=== PATIENT | female | born 1945 | race African-American/Black ===

== ENCOUNTER → 2016-05-21 | Outpatient (CLI) | payer MEDICARE ==
[2016-05-21 10:13] LABS: ABSOLUTE EOSINOPHILS # (AUTO) 0.1 10^3/uL (0.0-0.6); ABSOLUTE LYMPHOCYTES (AUTO) 1.8 10^3/uL (0.5-4.7); ABSOLUTE MONOCYTES (AUTO) 0.6 10^3/uL (0.1-1.4); ABSOLUTE NEUT (AUTO) 3.4 10^3/uL (1.7-8.2); BASOPHILS % (AUTO) 0.4 % (0-2); EOSINOPHILS % (AUTO) 0.9 % (0-6); HEMATOCRIT 36.5 % (36.0-47.0); HEMOGLOBIN 12.1 g/dL (12.0-15.5); HGB HCT DIFFERENCE -0.2; LYMPHOCYTES % (AUTO) 30.1 % (13-45); MEAN CORPUSCULAR HEMOGLOBIN 26.4 pg (27.0-33.4); MEAN CORPUSCULAR VOLUME 80 fl (80-97); MONOCYTES % (AUTO) 10.5 % (3-13); RED BLOOD COUNT 4.56 10^6/uL (3.72-5.28); RED CELL DISTRIBUTION WIDTH 14.3 % (11.5-14.0); SEGMENTED NEUTROPHILS % (AUTO) 58.1 % (42-78); WHITE BLOOD COUNT 5.9 10^3/uL (4.0-10.5)
[2016-05-21 10:30] LABS: ALANINE AMINOTRANSFERASE 21 U/L (9-52); ALBUMIN 4.3 g/dL (3.5-5.0); ALKALINE PHOSPHATASE 83 U/L (38-126); ANION GAP 13 (5-19); ASPARTATE AMINO TRANSFERASE 14 U/L (14-36); BILIRUBIN,TOTAL 0.7 mg/dL (0.2-1.3); BLOOD UREA NITROGEN 11 mg/dL (7-20); CALCIUM 10.2 mg/dL (8.4-10.2); CARBON DIOXIDE 29 mmol/L (22-30); CHLORIDE 98 mmol/L (98-107); CREATININE RESULT 0.66 mg/dL (0.52-1.25); GLUCOSE 358 mg/dL (75-110); LIPASE 59.1 U/L (23-300); POTASSIUM 4.2 mmol/L (3.6-5.0); SODIUM 140.4 mmol/L (137-145); TOTAL PROTEIN 7.4 g/dL (6.3-8.2)
== END ==
LOC: OD 08:50
PROVIDERS: ATTEND Physician Assistant
DX: R10.9 Unspecified abdominal pain (principal); N20.0 Calculus of kidney
CPT/HCPCS: 36415; 74000; 80053; 83690; 85025

== ENCOUNTER → 2016-06-23 | Outpatient (CLI) | payer MEDICARE, OTHER | LOC: OD 09:23 | PROVIDERS: ATTEND Physician Assistant | DX: M54.40 Lumbago with sciatica, unspecified side (principal) | CPT/HCPCS: 72110 ==

== ENCOUNTER 2016-07-07 18:51 | Emergency (ER) | payer MEDICARE, OTHER ==
--- NOTE | 2016-07-07 19:04 | ER Document Report ---
ED Medical Screen (RME) - General Chief Complaint: Flank Pain Stated Complaint: RIGHT SIDE PAIN Time seen by provider: 19:00 Mode of Arrival: Ambulatory Information source: Patient - Patient states she has had Notes: Patient states she has had right-sided abdominal pain for the last couple of days. States she has had vomiting and diarrhea. Denies fever. I have greeted and performed a rapid initial assessment of this patient. A comprehensive ED assessment and evaluation of the patient, analysis of test results and completion of the medical decision making process will be conducted by additional ED providers. TRAVEL OUTSIDE OF THE [place] IN LAST 30 DAYS: No - Related Data Allergies/Adverse Reactions: Sulfa (Sulfonamide Antibiotics) Allergy (Unknown, Verified 07/07/16 18:56) unsure Past Medical History - Social History Chew tobacco use (# tins/day): No Frequency of alcohol use: None Drug Abuse: None - Past Medical History Cardiac Medical History: Reports: Hx Hypercholesterolemia, Hx Hypertension - on meds Denies: Hx Coronary Artery Disease, Hx Heart Attack Pulmonary Medical History: Denies: Hx Asthma, Hx Bronchitis, Hx COPD, Hx Pneumonia Neurological Medical History: Denies: Hx Cerebrovascular Accident, Hx Seizures Endocrine Medical History: Reports: Hx Diabetes Mellitus Type 2 Renal/ Medical History: Denies: Hx Peritoneal Dialysis GI Medical History: Denies: Hx Hepatitis, Hx Hiatal Hernia, Hx Ulcer Musculoskeltal Medical History: Reports Hx Arthritis Infectious Medical History: Denies: Hx Hepatitis Past Surgical History: Reports: Hx Section. Denies: Hx Hysterectomy, Hx Mastectomy, Hx Open Heart Surgery, Hx Pacemaker - Immunizations Hx Diphtheria, Pertussis, Tetanus Vaccination: Yes Physical Exam - Abdominal Inspection: Normal Bowel sounds: Hyperactive Tenderness: Tender - diffuse tenderness, more to RUQ.
[2016-07-07 19:43] LABS: APPEARANCE,URINE CLOUDY; BILIRUBIN,URINE NEGATIVE (NEGATIVE); GLUCOSE, URINE >=500 mg/dL (NEGATIVE); KETONES,URINE TRACE mg/dL (NEGATIVE); LEUKOCYTE ESTERASE,URINE LARGE (NEGATIVE); NITRITE,URINE NEGATIVE (NEGATIVE); PROTEIN,URINE 100 mg/dL (NEGATIVE); URINE SPECIFIC GRAVITY 1.013; UROBILINOGEN,URINE NEGATIVE mg/dL (<2.0)
[2016-07-07] MEDS ORDERED: KETOROLAC TROMETHAMINE INJ/PF 30 MG/1 ML SDV IV ONE (21:57)
[2016-07-07] MEDS ORDERED: NORMAL SALINE 1000 ML 1,000 ML IV PRN (21:57)
[2016-07-07] MEDS ORDERED: ONDANSETRON HCL INJ/PF 4 MG/2 ML SDV IV ONE (21:57)
--- NOTE | 2016-07-07 21:59 | ER Document Report ---
ED GI/ - General Chief Complaint: Flank Pain Stated Complaint: RIGHT SIDE PAIN Time seen by provider: 21:58 Mode of Arrival: Ambulatory Information source: Patient TRAVEL OUTSIDE OF THE [place] IN LAST 30 DAYS: No - HPI Patient complains to provider of: Abdominal pain Onset: Yesterday Timing/Duration: Constant Quality of pain: Achy Severity at maximum: Moderate Severity in ED: Moderate Associated symptoms: Diarrhea, Dysuria, Hematuria, Loss of appetite, Nausea, Vomiting Exacerbated by: Denies Relieved by: Denies Recently seen / treated by doctor: Yes Notes: 07/07/16 21:58 Patient is a 70-year-old female presenting to the emergency room for right flank pain that's been going on for the past 2-3 days, in fact she saw her primary care provider just a few days ago for these symptoms, states she had a urinalysis completed which showed hematuria but the office never called back with additional results, she had some vomiting and diarrhea yesterday, and decreased appetite throughout the day today, she denies a fever, no dysuria, no cough, cold or congestion - Related Data Allergies/Adverse Reactions: Sulfa (Sulfonamide Antibiotics) Allergy (Unknown, Verified 07/07/16 18:56) unsure Past Medical History - General Information source: Patient - Patient states she has had - Social History Smoking Status: Unknown if Ever Smoked Chew tobacco use (# tins/day): No Frequency of alcohol use: None Drug Abuse: None Family History: Reviewed & Not Pertinent Patient has suicidal ideation: No Patient has homicidal ideation: No - Past Medical History Cardiac Medical History: Reports: Hx Hypercholesterolemia, Hx Hypertension - on meds Denies: Hx Coronary Artery Disease, Hx Heart Attack Pulmonary Medical History: Denies: Hx Asthma, Hx Bronchitis, Hx COPD, Hx Pneumonia Neurological Medical History: Denies: Hx Cerebrovascular Accident, Hx Seizures Endocrine Medical History: Reports: Hx Diabetes Mellitus Type 2 Renal/ Medical History: Denies: Hx Peritoneal Dialysis GI Medical History: Denies: Hx Hepatitis, Hx Hiatal Hernia, Hx Ulcer Musculoskeltal Medical History: Reports Hx Arthritis Infectious Medical History: Denies: Hx Hepatitis Past Surgical History: Reports: Hx Section. Denies: Hx Hysterectomy, Hx Mastectomy, Hx Open Heart Surgery, Hx Pacemaker - Immunizations Hx Diphtheria, Pertussis, Tetanus Vaccination: Yes Hx Pneumococcal Vaccination: 03/10/14 Review of Systems - Review of Systems Constitutional: No symptoms reported EENT: No symptoms reported Cardiovascular: No symptoms reported Respiratory: No symptoms reported Gastrointestinal: See HPI Genitourinary: See HPI Female Genitourinary: No symptoms reported Musculoskeletal: No symptoms reported Skin: No symptoms reported Hematologic/Lymphatic: No symptoms reported Neurological/Psychological: No symptoms reported -: Yes All other systems reviewed and negative Physical Exam - Vital signs Vitals: Temp Pulse Resp BP Pulse Ox 98.3 F 80 17 125/75 98 07/08/16 01:10 07/08/16 01:10 07/08/16 01:10 07/08/16 01:10 07/08/16 01:10 Interpretation: Normal - General General appearance: Appears well, Alert - HEENT Head: Normocephalic, Atraumatic Eyes: Normal Pupils: PERRL - Respiratory Respiratory status: No respiratory distress Chest status: Nontender Breath sounds: Normal Chest palpation: Normal - Cardiovascular Rhythm: Regular Heart sounds: Normal auscultation Murmur: No - Abdominal Inspection: Normal Distension: No distension Bowel sounds: Normal Tenderness: Tender - Right flank tenderness Organomegaly: No organomegaly - Back Back: Normal, Nontender - Extremities General upper extremity: Normal inspection, Nontender, Normal color, Normal ROM , Normal temperature General lower extremity: Normal inspection, Nontender, Normal color, Normal ROM , Normal temperature, Normal weight bearing. No: Wally's sign - Neurological Neuro grossly intact: Yes Cognition: Normal Orientation: AAOx4 [place] Coma Scale Eye Opening: Spontaneous Page Coma Scale Verbal: Oriented Page Coma Scale Motor: Obeys Commands Page Coma Scale Total: 15 Speech: Normal Motor strength normal: LUE, RUE, LLE, RLE Sensory: Normal - Psychological Associated symptoms: Normal affect, Normal mood - Skin Skin Temperature: Warm Skin Moisture: Dry Skin Color: Normal Course - Re-evaluation Re-evalutation: 07/08/16 03:07 Patient symptoms consistent with urinary tract infection, urinalysis confirms she was started on antibiotics and advised to follow-up with her primary care provider or return if symptoms worsen, patient acknowledges understanding and agreement with this plan - Vital Signs Vital signs: Temp Pulse Resp BP Pulse Ox 98.3 F 80 17 125/75 98 07/08/16 01:10 07/08/16 01:10 07/08/16 01:10 07/08/16 01:10 07/08/16 01:10 - Laboratory Result Diagrams: 07/07/16 23:55 07/07/16 23:55 Laboratory results interpreted by me: 07/07/16 07/07/16 07/07/16 19:06 23:55 23:55 RBC 5.57 H MCV 79 L MCH 26.4 L RDW 14.1 H Lymphocytes % 46.3 H Chloride 97 L BUN 21 H Glucose 258 H Calcium 11.4 H Total Protein 9.1 H Urine Protein 100 H Urine Glucose (UA) >=500 H Urine Ketones TRACE H Urine Blood SMALL H Ur Leukocyte Esterase LARGE H Discharge - Discharge Clinical Impression: Urinary tract infection Qualifiers: Indwelling urinary catheter type: unspecified Encounter type: initial encounter Condition: Stable Disposition: HOME, SELF-CARE Instructions: Urinary Tract Infection ([facility]) Additional Instructions: Follow up with your primary care provider in one to 2 days. Return to the emergency room immediately if symptoms worsen or any additional concerns. Prescriptions: Ciprofloxacin HCl [Cipro 500 mg Tablet] 500 mg PO BID #20 tablet Referrals: ANA TINOCO PA [Primary Care Provider] - Follow up as needed
[2016-07-08 00:07] LABS: ABSOLUTE BASOPHILS # (AUTO) 0.1 10^3/uL (0.0-0.2); ABSOLUTE EOSINOPHILS # (AUTO) 0.1 10^3/uL (0.0-0.6); ABSOLUTE LYMPHOCYTES (AUTO) 3.8 10^3/uL (0.5-4.7); ABSOLUTE MONOCYTES (AUTO) 0.6 10^3/uL (0.1-1.4); ABSOLUTE NEUT (AUTO) 3.6 10^3/uL (1.7-8.2); BASOPHILS % (AUTO) 0.7 % (0-2); EOSINOPHILS % (AUTO) 0.9 % (0-6); HEMOGLOBIN 14.7 g/dL (12.0-15.5); HGB HCT DIFFERENCE 0.1; LYMPHOCYTES % (AUTO) 46.3 % (13-45); MEAN CORPUSCULAR HEMOGLOBIN 26.4 pg (27.0-33.4); MEAN CORPUSCULAR HGB CONC 33.5 g/dL (32.0-36.0); MEAN CORPUSCULAR VOLUME 79 fl (80-97); MONOCYTES % (AUTO) 7.9 % (3-13); RED BLOOD COUNT 5.57 10^6/uL (3.72-5.28); RED CELL DISTRIBUTION WIDTH 14.1 % (11.5-14.0); SEGMENTED NEUTROPHILS % (AUTO) 44.2 % (42-78); WHITE BLOOD COUNT 8.1 10^3/uL (4.0-10.5)
[2016-07-08 00:19] LABS: ALANINE AMINOTRANSFERASE 21 U/L (9-52); ALKALINE PHOSPHATASE 78 U/L (38-126); ASPARTATE AMINO TRANSFERASE 17 U/L (14-36); BILIRUBIN,TOTAL 0.9 mg/dL (0.2-1.3); BLOOD UREA NITROGEN 21 mg/dL (7-20); CALCIUM 11.4 mg/dL (8.4-10.2); CHLORIDE 97 mmol/L (98-107); CREATININE RESULT 0.83 mg/dL (0.52-1.25); GLUCOSE 258 mg/dL (75-110); LIPASE 84.4 U/L (23-300); POTASSIUM 3.9 mmol/L (3.6-5.0); SODIUM 140.7 mmol/L (137-145)
[2016-07-08 00:20] LABS: ANION GAP 17 (5-19); CARBON DIOXIDE 27 mmol/L (22-30); TOTAL PROTEIN 9.1 g/dL (6.3-8.2)
[2016-07-08] MEDS ORDERED: CIPROFLOXACIN HCL 500 MG TABLET PO ONE (00:40)
[2016-07-08 01:58] VITALS: BP 125/75
== END 2016-07-08 01:15 | disposition home or self-care (01) ==
LOC: ER 18:51
DX: N39.0 Urinary tract infection, site not specified (principal); R10.9 Unspecified abdominal pain; R63.0 Anorexia; R11.2 Nausea with vomiting, unspecified; R19.7 Diarrhea, unspecified; I10 Essential (primary) hypertension; E11.9 Type 2 diabetes mellitus without complications; Z88.2 Allergy status to sulfonamides
CPT/HCPCS: 99284; 96361; 96374; 96375; 36415; 83690; 85025; 80053; 81001; A9270; J1885; J2405; J7030

== ENCOUNTER → 2016-07-07 | Outpatient (CLI) | payer MEDICARE, OTHER ==
[2016-07-07 14:33] LABS: ALANINE AMINOTRANSFERASE 21 U/L (9-52); ALBUMIN 4.5 g/dL (3.5-5.0); ALKALINE PHOSPHATASE 80 U/L (38-126); ANION GAP 18 (5-19); ASPARTATE AMINO TRANSFERASE 17 U/L (14-36); BILIRUBIN,TOTAL 0.9 mg/dL (0.2-1.3); BLOOD UREA NITROGEN 16 mg/dL (7-20); CALCIUM 10.8 mg/dL (8.4-10.2); CARBON DIOXIDE 24 mmol/L (22-30); CHLORIDE 97 mmol/L (98-107); CREATININE RESULT 0.71 mg/dL (0.52-1.25); GLUCOSE 278 mg/dL (75-110); LIPASE 65.3 U/L (23-300); SODIUM 138.8 mmol/L (137-145); TOTAL PROTEIN 8.2 g/dL (6.3-8.2)
[2016-07-07 14:38] LABS: ABSOLUTE LYMPHOCYTES (AUTO) 2.4 10^3/uL (0.5-4.7); ABSOLUTE MONOCYTES (AUTO) 0.6 10^3/uL (0.1-1.4); ABSOLUTE NEUT (AUTO) 4.2 10^3/uL (1.7-8.2); BASOPHILS % (AUTO) 0.4 % (0-2); EOSINOPHILS % (AUTO) 0.6 % (0-6); HEMATOCRIT 40.2 % (36.0-47.0); HEMOGLOBIN 13.2 g/dL (12.0-15.5); HGB HCT DIFFERENCE -0.6; LYMPHOCYTES % (AUTO) 33.3 % (13-45); MEAN CORPUSCULAR HEMOGLOBIN 26.1 pg (27.0-33.4); MEAN CORPUSCULAR HGB CONC 32.9 g/dL (32.0-36.0); MEAN CORPUSCULAR VOLUME 79 fl (80-97); MONOCYTES % (AUTO) 8.9 % (3-13); RED BLOOD COUNT 5.06 10^6/uL (3.72-5.28); RED CELL DISTRIBUTION WIDTH 14.2 % (11.5-14.0); SEGMENTED NEUTROPHILS % (AUTO) 56.8 % (42-78); WHITE BLOOD COUNT 7.3 10^3/uL (4.0-10.5)
== END ==
LOC: OD 12:56
PROVIDERS: ATTEND Physician Assistant
DX: R10.11 Right upper quadrant pain (principal)
CPT/HCPCS: 36415; 80053; 83690; 85025

== ENCOUNTER → 2016-07-15 | Outpatient (CLI) | payer MEDICARE, OTHER | LOC: RAD 09:19 | PROVIDERS: ATTEND Family Medicine | DX: R10.9 Unspecified abdominal pain (principal) | CPT/HCPCS: 74176 ==

== ENCOUNTER → 2017-01-13 | Outpatient (CLI) | payer MEDICARE ==
--- NOTE | 2017-01-13 13:46 | RADIOLOGY REPORT (SQ) ---
EXAM DESCRIPTION: HIP LEFT AP/LATERAL COMPLETED DATE/TIME: 01/13/2017 11:23 am REASON FOR STUDY: PAIN IN LEFT HIP M25.552 PAIN IN LEFT HIP COMPARISON: 07/19/2012 NUMBER OF VIEWS: Two views. TECHNIQUE: AP pelvis and additional frog-leg view of the left hip. LIMITATIONS: None. FINDINGS: MINERALIZATION: Normal. LEFT HIP: No fracture or dislocation. No worrisome bone lesions. No contour deformity. No joint spa ce narrowing. RIGHT HIP: No fracture or dislocation. No worrisome bone lesions. PUBIS AND ISCHIUM: No fracture. PELVIS: No fracture. SACRUM: No fracture or dislocation. No worrisome bone lesions. LOWER LUMBAR SPINE: Disc degeneration and facet arthropathy lower lumbar spine. SOFT TISSUES: No findings. OTHER: No other significant finding. IMPRESSION: No significant hip pathology. Degenerative change and no change since 07/19/2012 facet a rthropathy lower lumbar spine. TECHNICAL DOCUMENTATION: JOB ID: [id number] [employer]- All Rights Reserved
== END ==
LOC: OD 11:01
PROVIDERS: ATTEND Physician Assistant
DX: M25.552 Pain in left hip (principal)

== ENCOUNTER → 2017-02-17 | Outpatient (CLI) | payer MEDICARE ==
--- NOTE | 2017-02-17 16:17 | RADIOLOGY REPORT (SQ) ---
EXAM DESCRIPTION: CT HEAD WITHOUT COMPLETED DATE/TIME: 02/17/2017 3:50 pm REASON FOR STUDY: FACIAL WEAKNESS R29.810 FACIAL WEAKNESS COMPARISON: 2012. TECHNIQUE: Axial images acquired through the brain without intravenous contrast. Images reviewed wi th bone, brain and subdural windows. Images stored on PACS. All CT scanners at this facility use dose modulation, iterative reconstruction, and/or weight based d osing when appropriate to reduce radiation dose to as low as reasonably achievable (ALARA). [facility]: Dose Right [facility]: CareDose [facility]: Dose Right [facility]: Teradose 4D [facility]: [employer] RADIATION DOSE: Up-to-date CT equipment and radiation dose reduction techniques were employed. CTDIv ol: 49.0 mGy. DLP: 783 mGy-cm.mGy. LIMITATIONS: None. FINDINGS: VENTRICLES: Mildly prominent. CEREBRUM: No masses. No hemorrhage. No midline shift. Areas of low density in the white matter mos t likely due to chronic micro-vascular ischemic change. This includes lacunar infarcts in the right basal ganglia and along the left frontal lobe anterior carpus callosum. These changes are progressiv e compared to 2013. No evidence for acute infarction. CEREBELLUM: No masses. No hemorrhage. No alteration of density. No evidence for acute infarction. EXTRAAXIAL SPACES: No fluid collections. No masses. ORBITS AND GLOBE: No intra- or extraconal masses. Normal contour of globe without masses. CALVARIUM: No fracture. PARANASAL SINUSES: No fluid or mucosal thickening. SOFT TISSUES: No mass or hematoma. OTHER: No other significant finding. IMPRESSION: 1. Atrophy and small vessel disease. Progressive since 2013. No acute abnormality sug gested. If there is clinical concern for recent CVA, MRI may be warranted. EVIDENCE OF ACUTE STROKE: NO. TECHNICAL DOCUMENTATION: JOB ID: [id number] Quality ID # [id number]: Final reports with documentation of one or more dose reduction techniques (e.g., Au tomated exposure control, adjustment of the mA and/or kV according to patient size, use of iterative reconstruction technique) 2010 [employer]- All Rights Reserved
== END ==
LOC: RAD 15:34
PROVIDERS: ATTEND Physician Assistant
DX: R29.810 Facial weakness (principal)
CPT/HCPCS: 70450

== ENCOUNTER → 2017-02-22 | Outpatient (CLI) | payer MEDICARE ==
--- NOTE | 2017-02-22 16:38 | RADIOLOGY REPORT (SQ) ---
EXAM DESCRIPTION: CAROTID DOPPLER COMPLETED DATE/TIME: 02/22/2017 4:25 pm REASON FOR STUDY: FACIAL WEAKNESS R29.810 FACIAL WEAKNESS COMPARISON: None. TECHNIQUE: Grayscale ultrasound, Doppler velocity and spectra, and color Doppler images acquired of the extra-cranial carotid and vertebral arteries. Images stored on PACS. LIMITATIONS: None. FINDINGS: RIGHT CAROTID CCA Velocities: Within normal limits. ICA Velocities Peak systolic 0.66 m/s. End diastolic 0.22 m/s. Proximal ICA/CCA peak systolic ratio 1.6. Spectra normal. No significant plaque. LEFT CAROTID CCA Velocities: Within normal limits. ICA Velocities Peak systolic 0.61 m/s. End diastolic 0.23 m/s. Proximal ICA/CCA peak systolic ratio 1.3. Spectra normal. No significant plaque. VERTEBRAL ARTERIES: Antegrade flow. Normal waveforms. SUBCLAVIAN ARTERIES: No finding. OTHER: No other significant finding. IMPRESSION: NO HEMODYNAMICALLY SIGNIFICANT STENOSIS. COMMENT: Quality ID #195: Velocity criteria are extrapolated from the diameter data as defined by t he Society of Radiologists in Ultrasound Consensus Conference. Radiology 2003: 229; 340-346. TECHNICAL DOCUMENTATION: JOB ID: [id number] [employer]- All Rights Reserved
== END ==
LOC: SP 14:25
PROVIDERS: ATTEND Physician Assistant
DX: R29.810 Facial weakness (principal)
CPT/HCPCS: 93880

== ENCOUNTER → 2017-03-01 | Outpatient (CLI) | payer MEDICARE ==
--- NOTE | 2017-03-02 08:14 | RADIOLOGY REPORT (SQ) ---
EXAM DESCRIPTION: MRI HEAD WITHOUT COMPLETED DATE/TIME: 03/01/2017 5:46 pm REASON FOR STUDY: FACIAL WEAKNESS R29.810 FACIAL WEAKNESS COMPARISON: None. TECHNIQUE: Multiplanar imaging includes non-contrasted T1, T2, FLAIR, and diffusion with ADC map seq uences. Images stored on PACS. LIMITATIONS: None. FINDINGS: ANATOMY: No anomalies. Normal vascular flow voids. Pituitary fossa normal. CSF SPACES: Normal in size and contour. No hemorrhage. CEREBRUM: 1.1 cm ovoid subacute ischemia pattern of the mid, right internal capsule with restricted d iffusion. Mild atrophy and moderate white matter microangiopathy. Chronic encephalomalacia/ischemia of the anterior limb of the right external capsule anteriorly. POSTERIOR FOSSA: No signal alteration. No hemorrhage. No edema, masses or mass effect. Internal mary tory canals, cerebello-pontine angles, mastoids normal. DIFFUSION IMAGING: Negative for acute or sub-acute infarction. ORBITS: No masses. Globes normal. PARANASAL SINUSES: No fluid levels. Mucosa normal. OTHER: Trapped fluid of the right petrous apex, nonspecific. IMPRESSION: 1.1 cm ovoid focus subacute ischemia of the right internal capsule. EVIDENCE OF SUBACUTE STROKE: YES. COMMENT: This report was called to ANA EDDY at08:08 on 03/02/2017. TECHNICAL DOCUMENTATION: JOB ID: [id number]- All Rights Reserved
== END ==
LOC: RAD 16:55
PROVIDERS: ATTEND Physician Assistant
DX: I63.9 Cerebral infarction, unspecified (principal); R29.810 Facial weakness
CPT/HCPCS: 70551

== ENCOUNTER 2017-07-25 11:52 | Emergency (ER) | payer MEDICARE ==
--- NOTE | 2017-07-25 12:31 | ER Document Report ---
ED Medical Screen (RME) - General Chief Complaint: Flank Pain Stated Complaint: SIDE PAIN Time Seen by Provider: 07/25/17 12:05 Mode of Arrival: Ambulatory Information source: Patient Notes: 71 y.o female with a PMHx of kidney stones presents to the ED with RT flank pain of onset this morning. She denies any dysuria. She has no other complaints at this time. I have greeted and performed a rapid initial assessment of the patient. A comprehensive ED assessment and evaluation of the patient, analysis of test results, and completion of the medical decision making process will be conducted by additional ED providers. TRAVEL OUTSIDE OF THE [place] IN LAST 30 DAYS: No - Related Data Allergies/Adverse Reactions: Sulfa (Sulfonamide Antibiotics) Allergy (Unknown, Verified 07/25/17 11:57) unsure Past Medical History - General Information source: Patient - Social History Chew tobacco use (# tins/day): No Frequency of alcohol use: None Drug Abuse: None - Past Medical History Cardiac Medical History: Reports: Hx Hypercholesterolemia, Hx Hypertension - on meds Endocrine Medical History: Reports: Hx Diabetes Mellitus Type 2 Renal/ Medical History: Reports: Hx Kidney Stones. Denies: Hx Peritoneal Dialysis Musculoskeltal Medical History: Reports Hx Arthritis Past Surgical History: Reports: Hx Section - x 2 - Immunizations Hx Diphtheria, Pertussis, Tetanus Vaccination: Yes Review of Systems - Review of Systems Constitutional: No symptoms reported EENT: No symptoms reported Cardiovascular: No symptoms reported Respiratory: No symptoms reported Gastrointestinal: No symptoms reported Genitourinary: See HPI, Flank pain - rt. denies: Dysuria Female Genitourinary: See HPI Musculoskeletal: No symptoms reported Skin: No symptoms reported Hematologic/Lymphatic: No symptoms reported Neurological/Psychological: No symptoms reported -: Yes All other systems reviewed and negative Physical Exam - Vital signs Vitals: Temp Pulse Resp BP Pulse Ox 98.3 F 76 16 185/98 H 97 07/25/17 12:02 07/25/17 12:02 07/25/17 12:02 07/25/17 12:02 07/25/17 12:02 - Notes Notes: Physical Exam: General: Alert, appears well. HEENT: Normocephalic. Atraumatic. PERRLA. Extraocular movements intact. Oropharynx clear. Neck: Supple. Respiratory: No respiratory distress. Abdominal: Normal Inspection. No distension. Extremities: Moves all four extremities. Neurological: Normal cognition. AAOx4. Normal speech. Psychological: Normal affect. Normal Mood. Skin: Warm. Dry. Normal color. Course - Vital Signs Vital signs: Temp Pulse Resp BP Pulse Ox 98.3 F 76 16 185/98 H 97 07/25/17 12:02 07/25/17 12:02 07/25/17 12:02 07/25/17 12:02 07/25/17 12:02 Doctor's Discharge - Discharge Referrals: SHAWNA VELASQUEZ MD [Primary Care Provider] - Follow up as needed Scribe Documentation - Scribe Written by Scribe:: Huey Redd 07/25/17 1230 acting as scribe for :: Tj
[2017-07-25 13:14] LABS: ABSOLUTE EOSINOPHILS # (AUTO) 0.1 10^3/uL (0.0-0.6); ABSOLUTE LYMPHOCYTES (AUTO) 2.4 10^3/uL (0.5-4.7); ABSOLUTE MONOCYTES (AUTO) 0.6 10^3/uL (0.1-1.4); ABSOLUTE NEUT (AUTO) 3.3 10^3/uL (1.7-8.2); BASOPHILS % (AUTO) 0.7 % (0-2); EOSINOPHILS % (AUTO) 1.4 % (0-6); HEMATOCRIT 37.3 % (36.0-47.0); HEMOGLOBIN 12.3 g/dL (12.0-15.5); LYMPHOCYTES % (AUTO) 37.9 % (13-45); MEAN CORPUSCULAR HEMOGLOBIN 26.4 pg (27.0-33.4); MEAN CORPUSCULAR HGB CONC 32.9 g/dL (32.0-36.0); MEAN CORPUSCULAR VOLUME 80 fl (80-97); PLATELET COUNT 284 10^3/uL (150-450); RED BLOOD COUNT 4.65 10^6/uL (3.72-5.28); RED CELL DISTRIBUTION WIDTH 14.1 % (11.5-14.0); TOTAL CELLS COUNTED % (AUTO) 100 %; WHITE BLOOD COUNT 6.5 10^3/uL (4.0-10.5)
[2017-07-25 13:15] LABS: APPEARANCE,URINE CLEAR; BILIRUBIN,URINE NEGATIVE (NEGATIVE); COLOR,URINE YELLOW; GLUCOSE, URINE >=500 mg/dL (NEGATIVE); KETONES,URINE NEGATIVE (NEGATIVE); LEUKOCYTE ESTERASE,URINE NEGATIVE (NEGATIVE); NITRITE,URINE NEGATIVE (NEGATIVE); PROTEIN,URINE 30 mg/dL (NEGATIVE); URINE SPECIFIC GRAVITY 1.017; UROBILINOGEN,URINE NEGATIVE mg/dL (<2.0)
[2017-07-25 13:30] LABS: BLOOD UREA NITROGEN 13 mg/dL (7-20); CALCIUM 9.8 mg/dL (8.4-10.2); GLUCOSE 216 mg/dL (75-110)
[2017-07-25 13:31] LABS: ALANINE AMINOTRANSFERASE 20 U/L (9-52); ALBUMIN 4.4 g/dL (3.5-5.0); ALKALINE PHOSPHATASE 59 U/L (38-126); ANION GAP 13 (5-19); ASPARTATE AMINO TRANSFERASE 19 U/L (14-36); BILIRUBIN,DIRECT 0.5 mg/dL (0.0-0.4); BILIRUBIN,TOTAL 0.5 mg/dL (0.2-1.3); CARBON DIOXIDE 26 mmol/L (22-30); CHLORIDE 104 mmol/L (98-107); LIPASE 77.5 U/L (23-300); POTASSIUM 4.4 mmol/L (3.6-5.0); SODIUM 142.6 mmol/L (137-145); TOTAL PROTEIN 7.8 g/dL (6.3-8.2)
--- NOTE | 2017-07-25 14:24 | RADIOLOGY REPORT (SQ) ---
EXAM DESCRIPTION: CT ABD/PELVIS WITH IV ONLY COMPLETED DATE/TIME: 07/25/2017 1:58 pm REASON FOR STUDY: R Flank pain COMPARISON: CT abdomen and pelvis 07/15/2016 TECHNIQUE: CT scan of the abdomen and pelvis performed using helical scanning technique with dynamic intravenous contrast injection. No oral contrast. Images reviewed with lung, soft tissue, and bone windows. Reconstructed coronal and sagittal MPR images reviewed. Delayed images for evaluation of the urinary system also acquired. All images stored on PACS. All CT scanners at this facility use dose modulation, iterative reconstruction, and/or weight based d osing when appropriate to reduce radiation dose to as low as reasonably achievable (ALARA). [facility]: Dose Right [facility]: CareDose [facility]: Dose Right [facility]: Teradose 4D [facility]: [employer] CONTRAST TYPE AND DOSE: contrast/concentration: Isovue 370.00 mg/ml; Total Contrast Delivered: 98.0 ml; Total Saline Delivered: 72.0 ml RENAL FUNCTION: Creatinine 0.65 RADIATION DOSE: CT Rad equipment meets quality standard of care and radiation dose reduction techniq ues were employed. CTDIvol: 16.3 - 19.7 mGy. DLP: 1890 mGy-cm.. LIMITATIONS: None. FINDINGS: LOWER CHEST: No consolidation or pleural effusion. LIVER: Normal size. No masses. No dilated ducts. SPLEEN: Normal size. No focal lesions. PANCREAS: No significant calcifications. No adjacent inflammation or peripancreatic fluid collections . Pancreatic duct not dilated. GALLBLADDER: No identified stones by CT criteria. No inflammatory changes to suggest cholecystitis. ADRENAL GLANDS: No significant masses or asymmetry. RIGHT KIDNEY AND URETER: No solid masses. There is a 1.4 cm (828 Hounsfield units) calculus at the i nferior pole of the left kidney. No hydronephrosis or hydroureter. LEFT KIDNEY AND URETER: No solid masses. No hydronephrosis or hydroureter. AORTA AND VESSELS: No abdominal aortic aneurysm. RETROPERITONEUM: No retroperitoneal adenopathy, hemorrhage or masses. BOWEL AND PERITONEAL CAVITY: No lead bowel loops or inflammatory changes. No free fluid or free air. APPENDIX: Normal. PELVIS: No mass. No free fluid. The urinary bladder is partially distended. The uterus is present ABDOMINAL WALL: There is a small fat containing umbilical hernia. BONES: Degenerative disc disease with vacuum disc phenomenon at L4-L5. IMPRESSION: 1. No acute findings. 2. Nonobstructing left nephrolithiasis. TECHNICAL DOCUMENTATION: JOB ID: [id number] [facility] Quality ID # 436: Final reports with documentation of one or more dose reduction techniques (e.g., Au tomated exposure control, adjustment of the mA and/or kV according to patient size, use of iterative reconstruction technique) 2010 [email or web address]- All Rights Reserved Reading location - IP/workstation name: [email or web address]
--- NOTE | 2017-07-25 14:31 | ER Document Report ---
ED General - General Chief Complaint: Flank Pain Stated Complaint: SIDE PAIN Time Seen by Provider: 07/25/17 12:05 Mode of Arrival: Ambulatory Information source: Patient Notes: 71-year-old female with a history of hypertension, diabetes, previous CVA, previous kidney stones presents with complaint of right flank pain that started this morning. Patient states pain has been intermittent, throbbing. She denies any associated nausea, vomiting, abdominal pain, dysuria, hematuria, chest pain or shortness of breath. Patient has had prior similar symptoms with kidney stones that required surgical intervention. Patient has had renal stent placements and lithotripsy in the past. Last occurrence was 1 year prior to arrival. She denies any injury. TRAVEL OUTSIDE OF THE [place] IN LAST 30 DAYS: No - HPI Onset: This morning Onset/Duration: Gradual Quality of pain: Achy, Sharp, Throbbing Severity: Mild Pain Level: 2 Associated symptoms: denies: Chest pain, Diarrhea, Fever, Nausea, Vomiting, Shortness of breath Exacerbated by: Movement Relieved by: Denies Similar symptoms previously: Yes - 2016 Recently seen / treated by doctor: No - Related Data Allergies/Adverse Reactions: Sulfa (Sulfonamide Antibiotics) Allergy (Unknown, Verified 07/25/17 11:57) unsure Past Medical History - General Information source: Patient - Social History Smoking Status: Unknown if Ever Smoked Chew tobacco use (# tins/day): No Frequency of alcohol use: None Drug Abuse: None Family History: Reviewed & Not Pertinent Patient has suicidal ideation: No Patient has homicidal ideation: No - Past Medical History Cardiac Medical History: Reports: Hx Hypercholesterolemia, Hx Hypertension - on meds Endocrine Medical History: Reports: Hx Diabetes Mellitus Type 2 Renal/ Medical History: Reports: Hx Kidney Stones. Denies: Hx Peritoneal Dialysis Musculoskeltal Medical History: Reports Hx Arthritis Past Surgical History: Reports: Hx Section - x 2 - Immunizations Hx Diphtheria, Pertussis, Tetanus Vaccination: Yes Hx Pneumococcal Vaccination: 03/10/14 Review of Systems - Review of Systems Constitutional: See HPI. denies: Chills, Fever EENT: No symptoms reported Cardiovascular: denies: Chest pain, Palpitations, Syncope, Dizziness, Lightheaded Respiratory: denies: Short of breath Gastrointestinal: denies: Abdominal pain, Diarrhea, Nausea Genitourinary: Flank pain. denies: Dysuria, Hematuria Female Genitourinary: denies: Vaginal discharge, Vaginal bleeding Musculoskeletal: denies: Back pain Skin: No symptoms reported Physical Exam - Vital signs Vitals: Temp Pulse Resp BP Pulse Ox 98.3 F 76 16 185/98 H 97 07/25/17 12:02 07/25/17 12:02 07/25/17 12:02 07/25/17 12:02 07/25/17 12:02 - Abdominal Inspection: Normal Distension: No distension. No: Distended bladder Bowel sounds: Normal Tenderness: Tender - Right flank Organomegaly: No organomegaly - No pulsitile mass, Other - Back Back: Normal, Nontender, CVA tenderness - Right sided CVA tenderness - Extremities General upper extremity: Normal inspection, Nontender, Normal color, Normal ROM , Normal temperature General lower extremity: Normal inspection, Nontender, Normal color, Normal ROM , Normal temperature, Normal weight bearing. No: Wally's sign - Neurological Neuro grossly intact: Yes Cognition: Normal Orientation: AAOx4 Merritt Coma Scale Eye Opening: Spontaneous Merritt Coma Scale Verbal: Oriented Merritt Coma Scale Motor: Obeys Commands Page Coma Scale Total: 15 Speech: Normal Cranial nerves: Normal Motor strength normal: LUE, RUE, LLE, RLE Sensory: Normal Course - Re-evaluation Re-evalutation: 07/25/17 20:25 71-year-old female with history of hypertension, diabetes and prior kidney stones presents with complaint of right flank pain that started this morning upon awakening. Patient describes the pain as intermittent, aching and not relieved with Tylenol. Upon arrival vitals were reviewed. Patient does not appear toxic or dehydrated. She is in no acute distress. Exam is significant for tenderness along the right flank and right CVA tenderness. She has no right lower quadrant pain or tenderness. She does not display guarding or rebound. There is no pulsatile mass. Patient was administered morphine, and Zofran. CAT scan of the abdomen with IV contrast was obtained and significant for a left kidney stone that is not causing obstruction. Aorta is within normal limits. There is no evidence of urinary tract infection or renal insufficiency. CBC does not show a leukocytosis or anemia. On reevaluation patient states her pain has subsided. CT results were reviewed with the patient and her family. Prior to discharge home patient complaining of mild right arm itching. There is no urticaria. Just evidence of self excoriations. She was given Benadryl for this. I do not believe this was an allergic reaction to IV contrast. Patient was discharged home in stable condition with recommendation to follow-up with her primary care physician. She was instructed to drink plenty of fluids and to withhold her metformin for 48 hours. Laboratory 07/25/17 07/25/17 07/25/17 12:38 12:38 12:38 WBC 6.5 RBC 4.65 Hgb 12.3 Hct 37.3 MCV 80 MCH 26.4 L MCHC 32.9 RDW 14.1 H Plt Count 284 Seg Neutrophils % 51.0 Lymphocytes % 37.9 Monocytes % 9.0 Eosinophils % 1.4 Basophils % 0.7 Absolute Neutrophils 3.3 Absolute Lymphocytes 2.4 Absolute Monocytes 0.6 Absolute Eosinophils 0.1 Absolute Basophils 0.0 Sodium 142.6 Potassium 4.4 Chloride 104 Carbon Dioxide 26 Anion Gap 13 BUN 13 Creatinine 0.65 Est GFR ( Amer) > 60 Est GFR (Non-Af Amer) > 60 Glucose 216 H Calcium 9.8 Total Bilirubin 0.5 Direct Bilirubin 0.5 H Neonat Total Bilirubin Not Reportable Neonat Direct Bilirubin Not Reportable Neonat Indirect Bili Not Reportable AST 19 ALT 20 Alkaline Phosphatase 59 Total Protein 7.8 Albumin 4.4 Lipase 77.5 Urine Color YELLOW Urine Appearance CLEAR Urine pH 6.0 Ur Specific [place] 1.017 Urine Protein 30 H Urine Glucose (UA) >=500 H Urine Ketones NEGATIVE Urine Blood NEGATIVE Urine Nitrite NEGATIVE Urine Bilirubin NEGATIVE Urine Urobilinogen NEGATIVE Ur Leukocyte Esterase NEGATIVE Urine WBC (Auto) 1 Urine RBC (Auto) 1 Squamous Epi Cells Auto 4 Urine Mucus (Auto) RARE Urine Ascorbic Acid 40 H Abdomen/Pelvis CT 07/25/17 12:17 IMPRESSION: 1. No acute findings. 2. Nonobstructing left nephrolithiasis. 07/25/17 20:30 - Vital Signs Vital signs: Temp Pulse Resp BP Pulse Ox 97.9 F 70 16 163/62 H 94 07/25/17 15:51 07/25/17 15:51 07/25/17 15:51 07/25/17 15:51 07/25/17 15:51 - Laboratory Result Diagrams: 07/25/17 12:38 07/25/17 12:38 Laboratory results interpreted by me: 07/25/17 07/25/1707/25/18 12:38 12:38 12:38 MCH 26.4 L RDW 14.1 H Glucose 216 H Direct Bilirubin 0.5 H Urine Protein 30 H Urine Glucose (UA) >=500 H Urine Ascorbic Acid 40 H - Diagnostic Test Radiology reviewed: Image reviewed, Reports reviewed Discharge - Discharge Clinical Impression: Flank pain, Hyperglycemia without ketosis, Nephrolithiasis Condition: Good Disposition: HOME, SELF-CARE Instructions: Flank Pain ([facility]), Kidney Stone ([facility]), Low-Fat Diet ([facility]), Toradol Injection ([facility]) Additional Instructions: Your Cat scan showed a non-obstructing stone in the left kidney. There are no stones associated with your right side. You have no evidence of infection. All of your lab work was normal except for a mildly elevated glucose. He states IV contrast today. Please hold your metformin for 48 hours. Please drink plenty of fluids today. Please return to the emergency department if you have recurrence of pain, fever, inability to tolerate fluids. Referrals: SHAWNA VELASQUEZ MD [Primary Care Provider] - Follow up as needed
[2017-07-25] MEDS ORDERED: MORPHINE SULFATE 10 MG/ML INJ IV ONE (14:33)
[2017-07-25] MEDS ORDERED: ONDANSETRON HCL INJ/PF 4 MG/2 ML SDV IV ONE (14:33)
[2017-07-25] MEDS ORDERED: DIPHENHYDRAMINE HCL 50 MG/ML VIAL IV ONE (15:54)
[2017-07-25 16:35] VITALS: BP 163/62
== END 2017-07-25 16:15 | disposition home or self-care (01) ==
LOC: ER 11:52
DX: N20.0 Calculus of kidney (principal); E11.65 Type 2 diabetes mellitus with hyperglycemia; Z79.84 Long term (current) use of oral hypoglycemic drugs; L29.9 Pruritus, unspecified; I10 Essential (primary) hypertension; Z88.2 Allergy status to sulfonamides
CPT/HCPCS: 99284; 96374; 96375; 36415; 83690; 85025; 80053; 81001; 74177; J1200; J2270; J2405

== ENCOUNTER 2018-02-26 06:47 | Inpatient (IN) | payer MEDICARE ==
--- NOTE | 2018-02-26 07:16 | RADIOLOGY REPORT (SQ) ---
CLINICAL HISTORY: weakness COMPARISON: None. TECHNIQUE: CT HEAD WITHOUT IV CONTRAST on 02/26/2018 6:51 AM CDT This exam was performed according to our departmental dose-optimization program, which includes automated exposure control, adjustment of the mA and/or kV according to patient size and/or use of iterative reconstruction technique. FINDINGS: There is no acute hemorrhage, mass effect or midline shift. There are lacunar infarcts right basal ganglia. There is no hydrocephalus. There is no significant volume loss for age. There are mild patchy hypodensities within the periventricular and subcortical white matter, consistent with microangiopathic ischemic changes. The calvarium is intact. Orbits and globes are unremarkable. The paranasal sinuses are clear. Mastoid air cells are clear. IMPRESSION: No acute intracranial findings.
--- NOTE | 2018-02-26 07:31 | ER Document Report ---
ED General - General Chief Complaint: S/S of Possible Stroke Stated Complaint: WEAKNESS Time Seen by Provider: 02/26/18 07:05 Mode of Arrival: Ambulatory Information source: Patient, [facility] Records Notes: 72-year-old female with hyperlipidemia, hypertension, type 2 diabetes, anemia, previous CVA presents with complaint of left lower extremity weakness that started 1 day prior to arrival. Daughter is at the bedside and states that her mother stayed in her chair all day yesterday. She states that she is little was left with right-sided weakness after her previous stroke but she was able to walk with a cane. Patient denies recent illness, fever, chills, nausea, vomiting, abdominal pain, back pain, headache. TRAVEL OUTSIDE OF THE [place] IN LAST 30 DAYS: No - HPI Onset: Yesterday Onset/Duration: Gradual Quality of pain: No pain Associated symptoms: Weakness. denies: Chest pain, Fever, Headache, Shortness of breath Exacerbated by: Denies Relieved by: Denies Similar symptoms previously: Yes Recently seen / treated by doctor: Yes - Related Data Allergies/Adverse Reactions: Sulfa (Sulfonamide Antibiotics) Allergy (Unknown, Verified 02/26/18 07:37) unsure Past Medical History - General Information source: Patient, [facility] Records - Social History Smoking Status: Former Smoker Cigarette use (# per day): No Smoking Education Provided: No Frequency of alcohol use: None Drug Abuse: None Lives with: Family Family History: Reviewed & Not Pertinent Patient has suicidal ideation: No Patient has homicidal ideation: No - Past Medical History Cardiac Medical History: Reports: Hx Hypercholesterolemia, Hx Hypertension - on meds Endocrine Medical History: Reports: Hx Diabetes Mellitus Type 2 Renal/ Medical History: Reports: Hx Kidney Stones. Denies: Hx Peritoneal Dialysis Musculoskeletal Medical History: Reports Hx Arthritis Past Surgical History: Reports: Hx Section - x 2 - Immunizations Hx Diphtheria, Pertussis, Tetanus Vaccination: Yes Hx Pneumococcal Vaccination: 03/10/14 Review of Systems - Review of Systems Notes: REVIEW OF SYSTEMS: CONSTITUTIONAL : Denies fever, chills, or sweats. Denies recent illness. Denies weight loss, recent hospitalizations. EENT: Denies visual changes, eye pain. Denies sore throat, oral lesions, difficulty swallowing. CARDIOVASCULAR: Denies chest pain. Denies palpitations. Denies lower extremity edema. RESPIRATORY: Denies cough. Denies shortness of breath, wheezing. GASTROINTESTINAL: Denies abdominal pain or distention. Denies nausea, vomiting , or diarrhea. Denies blood in vomitus, stools, or per rectum. Denies black, tarry stools. Denies constipation. GENITOURINARY: Denies difficulty urinating, painful urination, frequency, blood in urine, or vaginal discharge. MUSCULOSKELETAL: Denies back or neck pain or stiffness. Denies joint pain or swelling. SKIN: Denies rash, lesions or sores. HEMATOLOGIC : Denies easy bruising or bleeding. LYMPHATIC: Denies swollen glands. NEUROLOGICAL: Denies confusion or altered mental status. Denies loss of consciousness. Denies dizziness or lightheadedness. Denies headache. Denies sensory loss, numbness, or tingling. Denies seizures. PSYCHIATRIC: Denies anxiety or stress. Denies depression, suicidal ideation, or homicidal ideation. Denies visual or auditory hallucinations. Physical Exam - Vital signs Vitals: Pulse Ox 98 02/26/18 07:15 - Notes Notes: PHYSICAL EXAMINATION: GENERAL: Well-appearing, well-nourished and in no acute distress. HEAD: Atraumatic, normocephalic. EYES: Pupils equal round and reactive to light, extraocular movements intact, conjunctiva are normal. ENT: Nares patent, oropharynx clear without exudates. Moist mucous membranes. NECK: Normal range of motion, supple without lymphadenopathy LUNGS: Breath sounds clear to auscultation bilaterally and equal. No wheezes rales or rhonchi. HEART: Regular rate and rhythm without murmurs ABDOMEN: Soft, nontender, nondistended abdomen. No guarding, no rebound. No masses appreciated. Female : deferred Musculoskeletal: Normal range of motion, no pitting or edema. No cyanosis. NEUROLOGICAL: Cranial nerves grossly intact. See NIH PSYCH: Normal mood, normal affect. SKIN: Warm, Dry, normal turgor, no rashes or lesions noted. Course - Re-evaluation Re-evalutation: 02/26/18 20:02 Laboratory 02/26/18 02/26/18 02/26/18 07:07 07:20 07:20 WBC 7.8 RBC 4.51 Hgb 11.7 L Hct 35.5 L MCV 79 L MCH 26.0 L MCHC 33.0 RDW 15.0 H Plt Count 321 Seg Neutrophils % 62.3 Lymphocytes % 27.8 Monocytes % 8.2 Eosinophils % 1.2 Basophils % 0.5 Absolute Neutrophils 4.9 Absolute Lymphocytes 2.2 Absolute Monocytes 0.6 Absolute Eosinophils 0.1 Absolute Basophils 0.0 PT 12.6 INR 0.90 APTT 32.7 Sodium Potassium Chloride Carbon Dioxide Anion Gap BUN Creatinine Est GFR ( Amer) Est GFR (Non-Af Amer) Glucose POC Glucose 115 H Calcium Total Bilirubin Direct Bilirubin Neonat Total Bilirubin Neonat Direct Bilirubin Neonat Indirect Bili AST ALT Alkaline Phosphatase Creatine Kinase CK-MB (CK-2) Troponin I NT-Pro-B Natriuret Pep Total Protein Albumin 02/26/18 02/26/18 02/26/18 07:20 07:20 07:20 WBC RBC Hgb Hct MCV MCH MCHC RDW Plt Count Seg Neutrophils % Lymphocytes % Monocytes % Eosinophils % Basophils % Absolute Neutrophils Absolute Lymphocytes Absolute Monocytes Absolute Eosinophils Absolute Basophils PT INR APTT Sodium 143.7 Potassium 4.0 Chloride 105 Carbon Dioxide 25 Anion Gap 14 BUN 22 H Creatinine 0.77 Est GFR ( Amer) > 60 Est GFR (Non-Af Amer) > 60 Glucose 108 POC Glucose Calcium 10.6 H Total Bilirubin 0.5 Direct Bilirubin 0.2 Neonat Total Bilirubin Not Reportable Neonat Direct Bilirubin Not Reportable Neonat Indirect Bili Not Reportable AST 17 ALT 16 Alkaline Phosphatase 67 Creatine Kinase 30 CK-MB (CK-2) 0.28 Troponin I < 0.012 NT-Pro-B Natriuret Pep 108 Total Protein 8.1 Albumin 4.3 02/26/18 02/26/18 02/26/18 12:16 13:15 17:07 WBC RBC Hgb Hct MCV MCH MCHC RDW Plt Count Seg Neutrophils % Lymphocytes % Monocytes % Eosinophils % Basophils % Absolute Neutrophils Absolute Lymphocytes Absolute Monocytes Absolute Eosinophils Absolute Basophils PT INR APTT Sodium Potassium Chloride Carbon Dioxide Anion Gap BUN Creatinine Est GFR ( Amer) Est GFR (Non-Af Amer) Glucose POC Glucose 89 120 H Calcium Total Bilirubin Direct Bilirubin Neonat Total Bilirubin Neonat Direct Bilirubin Neonat Indirect Bili AST ALT Alkaline Phosphatase Creatine Kinase CK-MB (CK-2) 0.33 Troponin I < 0.012 NT-Pro-B Natriuret Pep Total Protein Albumin Head CT 02/26/18 06:51 IMPRESSION: No acute intracranial findings. Chest X-Ray 02/26/18 07:32 IMPRESSION: No evidence of acute intrathoracic disease. No significant change since the prior study. Head MRI 02/26/18 08:02 IMPRESSION: Diffusion-weighted images are positive for a small nonhemorrhagic early subacute infarct up to 1-week-old. Chronic bifrontal small vessel ischemic change with old right basal ganglia and caudate infarcts EVIDENCE OF ACUTE STROKE: NO. 72-year-old female with previous strokes presents with left-sided weakness and slurred speech. Daughter is at the bedside and states that her mother stated her chair all day yesterday. She states that she told her that she was able to walk and feeling weak. Upon awakening this morning her son called her and noticed that she had slurred speech. When daughter reports her she states that she did notice a slurred speech and when she asked her to stand up she was unable to. Vital signs stable upon arrival. Patient is alert and awake and cooperative with exam. NIH-8 due to mild facial droop, minimal ability to lift her lower extremities bilaterally. And mild dysarthria. Patient is not a candidate for TPA since we do not know the time of symptom onset. CT was obtained and showed no acute hemorrhage. MRI was obtained and showed a small nonhemorrhagic early subacute infarct. Patient did receive aspirin. She will be admitted to the [facility] by the hospitalist. - Vital Signs Vital signs: Temp Pulse Resp BP Pulse Ox 99.2 F 91 20 164/81 H 98 02/26/18 19:30 02/26/18 19:30 02/26/18 19:30 02/26/18 19:30 02/26/18 19:30 - Laboratory Result Diagrams: 02/26/18 07:20 02/26/18 07:20 Laboratory results interpreted by me: 02/26/18 02/26/18 02/26/18 07:07 07:20 07:20 Hgb 11.7 L Hct 35.5 L MCV 79 L MCH 26.0 L RDW 15.0 H BUN 22 H POC Glucose 115 H Calcium 10.6 H - Diagnostic Test Radiology reviewed: Image reviewed, Reports reviewed - EKG Interpretation by Me EKG shows normal: Sinus rhythm Rate: Normal Rhythm: NSR [place]/QRS: RBBB When compared to previous EKG there are: No significant change Discharge - Discharge Clinical Impression: Left-sided weakness Stroke Qualifiers: CVA mechanism: unspecified Qualified Code(s): I63.9 - Cerebral infarction, unspecified Type 2 diabetes mellitus Qualifiers: Diabetes mellitus alf insulin use: unspecified alf insulin use status Diabetes mellitus complication status: with unspecified complications Qualified Code(s): E11.8 - Type 2 diabetes mellitus with unspecified complications Hypertension Qualifiers: Hypertension type: essential hypertension Qualified Code(s): I10 - Essential ( primary) hypertension Hyperlipidemia Qualifiers: Hyperlipidemia type: unspecified Qualified Code(s): E78.5 - Hyperlipidemia, unspecified Condition: Good Disposition: ADMITTED INPATIENT Admitting Provider: Hospitalist Unit Admitted: [facility] ED NIH Stroke Scale - NIH Stroke Scale *: 1. NIH scale should be completed with appropriate accompanying assessment tools. *: 2. The NIH should reflect what the patient is capable of doing and should not be coached by the clinician. 1a. Level of Consciousness: 0=Alert;keenly responsive -: 1=Drowsy -: 2=Obtunded -: 3=Coma/unresponsive or reflex to noxious stimuli. 1a. Responses: 0 1b. Orientation Questions: a. What month is it? -: b. How old are you? -: 0=Answers both questions correctly. -: 1=Answers one question correctly or patient is intubated or has orotracheal trauma. -: 2=Answers neither question correctly. 1b. Responses: 0 1c. Response to commands: a. Open and close eyes? -: b. Solid Surface Fabricator and release hand? -: Credit is given despite weakness. Demonstration of task is permitted. Substitute command if hands cannot be used. -: 0=Performs both tasks correctly -: 1=Performs one task correctly -: 2=Performs neither task correctly 1c. Responses: 0 2. Gaze: Establish eye contact and instruct patient to "Follow my finger" -: 0=Normal -: 1=Partial gaze palsy. Gaze is abnormal in one or both eyes, but where forced deviation or total gaze paresis is not present. -: 2=Forced deviation or total gaze paresis. 2. Responses: 0 3. Visual Sadler: Sees fingers in all four quadrants. -: 0=No visual loss. -: 1=Partial hemianopsia. -: 2=Complete hemianopsia. -: 3=Bilateral hemianopsia (including Cortical blindness) 3. Responses: 0 4. Facial Movement: Instruct patient to: -: a. Show me your teeth -: b. Raise your eyebrows -: c. Close your eyes -: d. Smile -: 0=Normal symmetrical movement -: 1=Minor paralysis (flattened nasolabial fold, asymmetry on smiling). -: 2=Partial paralysis (total or near total paralysis of lower face). -: 3=Complete paralysis of upper and lower face 4. Responses: 1 5. Motor functions (left arm): Alternate sides and extend each arm with palms down (90 degrees if sitting or 45 degrees for supine). -: 0=No drift;limb holds for full 10 seconds. -: 1=Drift; limb holds but drifts down before full 10 seconds, but does not hit bed. -: 2=Some effort against gravity; limb cannot get to or maintain position. -: 3=No effort against gravity; limb falls. -: 4=No movement. -: UN=Amputation, joint fusion, explain in comments. 5. Responses (left arm): 0 5. Motor Functions (right arm): Alternate sides and extend each arm with palms down (90 degrees if sitting or 45 degrees for supine). -: 0=No drift;limb holds for full 10 seconds. -: 1=Drift; limb holds but drifts down before full 10 seconds, but does not hit bed. -: 2=Some effort against gravity; limb cannot get to or maintain position. -: 3=No effort against gravity; limb falls. -: 4=No movement. -: UN=Amputation, joint fusion, explain in comments. 5. Responses (right arm): 0 6. Motor Functions (left leg): With patient lying supine, alternate sides and extend each leg (30 degrees always while supine). -: 0=No drift, leg holds position for full 5 seconds -: 1=Drift; leg falls before full 5 seconds but does not hit bed. -: 2=Some effort against gravity, leg falls to bed but some effort against gravity. -: 3=No effort against gravity, leg falls to bed immediately. -: 4=No movement. -: UN=Amputation, joint fusion; explain in comments. 6. Responses (left leg): 3 6. Motor Functions (right leg): With patient lying supine, alternate sides and extend each leg (30 degrees always while supine). -: 0=No drift, leg holds position for full 5 seconds -: 1=Drift; leg falls before full 5 seconds but does not hit bed. -: 2=Some effort against gravity, leg falls to bed but some effort against gravity. -: 3=No effort against gravity, leg falls to bed immediately. -: 4=No movement. -: UN=Amputation, joint fusion; explain in comments. 6. Responses (right leg): 3 7. Limb Ataxia: With eyes open instruct patient to: -: a. "Touch your finger to your nose". -: b. "Touch your heel to your loaiza" -: 0=Absent -: 1=Present in one limb. -: 2=Present in two limbs. -: UN=Amputation or joint fusion; explain in comments. 7. Responses: 0 8. Sensory: Test sensation using pinprick or noxious stimuli. Test as many body parts as possible. -: 0=Normal;no sensory loss -: 1=Mile to moderate sensory loss (patient feels pin prick but is less sharp on affected side). -: 2=Severe or total sensory loss. 8. Responses: 0 9. Best Language: Instruct patient to: -: a. "Describe what you see in this picture." -: b. "Name the items in this picture." -: c. "Read these sentences." -: 0=No aphasia, normal -: 1=Mild to moderate aphasia. -: 2=Severe aphasia -: 3=Mute, global aphasia, no usable speech or auditory comprehension. 9. Responses: 0 10. Articulation, Dysarthia: Instruct patient to: -: "Read these words" or "Repeat these words" -: 0=Normal -: 1=Mild to moderate; patient may slur some words but can be understood without difficulty. -: 2=Severe; patients speech so slurred as to be unintelligible in the absence of dysphasia. -: UN=Intubated or other physical barrier, explain in comments. 10. Responses: 1 11. Extinction or inattention: 0=No abnormality -: 1= Visual, tactile, auditory, spatial, or personal inattention or extinction to bilateral simulation in one or the sensory modalities. -: 2=Profound radha-inattention or radha-inattention to more than one modality; does not recognize own hand. Total Score: 8
[2018-02-26 07:41] LABS: ABSOLUTE EOSINOPHILS # (AUTO) 0.1 10^3/uL (0.0-0.6); ABSOLUTE LYMPHOCYTES (AUTO) 2.2 10^3/uL (0.5-4.7); ABSOLUTE MONOCYTES (AUTO) 0.6 10^3/uL (0.1-1.4); ABSOLUTE NEUT (AUTO) 4.9 10^3/uL (1.7-8.2); BASOPHILS % (AUTO) 0.5 % (0-2); EOSINOPHILS % (AUTO) 1.2 % (0-6); HEMATOCRIT 35.5 % (36.0-47.0); HEMOGLOBIN 11.7 g/dL (12.0-15.5); LYMPHOCYTES % (AUTO) 27.8 % (13-45); MEAN CORPUSCULAR VOLUME 79 fl (80-97); MONOCYTES % (AUTO) 8.2 % (3-13); PLATELET COUNT 321 10^3/uL (150-450); RED BLOOD COUNT 4.51 10^6/uL (3.72-5.28); SEGMENTED NEUTROPHILS % (AUTO) 62.3 % (42-78); TOTAL CELLS COUNTED % (AUTO) 100 %; WHITE BLOOD COUNT 7.8 10^3/uL (4.0-10.5)
[2018-02-26 07:43] LABS: PARTIAL THROMBOPLASTIN TIME 32.7 SEC (23.5-35.8); PROTHROMBIN TIME 12.6 SEC (11.4-15.4)
--- NOTE | 2018-02-26 07:56 | RADIOLOGY REPORT (SQ) ---
EXAM DESCRIPTION: X-ray single view chest. CLINICAL HISTORY: 72 years Female, Stroke symptoms COMPARISON: Prior two-view chest performed on 03/24/2016 TECHNIQUE: Single portable view of the chest performed on 02/26/2018 at 7:46 AM FINDINGS: The lungs are well expanded and are clear. There is no evidence of a pneumothorax. The cardiac silhouette is normal in size and configuration. The mediastinal contours are normal. No acute osseous abnormality is identified. No focal soft tissue abnormalities are seen. Lines and tubes: None. IMPRESSION: No evidence of acute intrathoracic disease. No significant change since the prior study.
[2018-02-26 07:59] LABS: ALANINE AMINOTRANSFERASE 16 U/L (9-52); ALBUMIN 4.3 g/dL (3.5-5.0); ALKALINE PHOSPHATASE 67 U/L (38-126); ANION GAP 14 (5-19); ASPARTATE AMINO TRANSFERASE 17 U/L (14-36); BILIRUBIN,DIRECT 0.2 mg/dL (0.0-0.4); BILIRUBIN,TOTAL 0.5 mg/dL (0.2-1.3); BLOOD UREA NITROGEN 22 mg/dL (7-20); CALCIUM 10.6 mg/dL (8.4-10.2); CARBON DIOXIDE 25 mmol/L (22-30); CHLORIDE 105 mmol/L (98-107); CREATINE KINASE 30 U/L (30-135); GLUCOSE 108 mg/dL (75-110); SODIUM 143.7 mmol/L (137-145); TOTAL PROTEIN 8.1 g/dL (6.3-8.2)
[2018-02-26 08:11] LABS: CREATINE KINASE MB 0.28 ng/mL (<4.55); TROPONIN I < 0.012 ng/mL
--- NOTE | 2018-02-26 09:37 | EKG REPORT ---
SEVERITY:- ABNORMAL ECG - SINUS RHYTHM RIGHT BUNDLE BRANCH BLOCK : Confirmed by: Lamont Ramirez MD 26-Feb-2018 09:36:43
[2018-02-26] MEDS ORDERED: ACETAMINOPHEN 325 MG TABLET PO PRN ×2 (09:43→15:12)
[2018-02-26] MEDS ORDERED: ONDANSETRON 4 MG TAB.RAPDIS PO PRN (09:43)
--- NOTE | 2018-02-26 10:07 | RADIOLOGY REPORT (SQ) ---
EXAM DESCRIPTION: MRI HEAD WITHOUT COMPLETED DATE/TIME: 02/26/2018 9:33 am REASON FOR STUDY: stroke left sided weakness COMPARISON: CT brain 02/17/2017, 02/26/2018 MRI brain 03/01/2017 TECHNIQUE: Multiplanar imaging includes non-contrasted T1, T2, FLAIR, and diffusion with ADC map seq uences. Images stored on PACS. LIMITATIONS: None. FINDINGS: ANATOMY: No anomalies. Normal vascular flow voids. Pituitary fossa normal. CSF SPACES: Normal in size and contour. No hemorrhage. CEREBRUM: No MR evidence of acute ischemic change, acute intracranial hemorrhage, mass effect, or mid line shift. Extensive bifrontal deep periventricular small vessel ischemic change with old infarcts in the right deep periventricular white matter, and right basal ganglia. POSTERIOR FOSSA: Diffusion-weighted images are positive for an acute small nonhemorrhagic inferior ce rebellar infarct on axial diffusion image 7. No local mass effect. There is associated decreased T1 and increased T2 signal suggesting that this is early subacute, up to 1 week old. Moderate stable chronic small vessel ischemic change in the mid amira. DIFFUSION IMAGING: Positive for an acute small nonhemorrhagic inferior cerebellar infarct ORBITS: No masses. Globes normal. PARANASAL SINUSES: No fluid levels. Mucosa normal. Minimal fluid in the right pancreas apex of eloina btful significance common unchanged since 2017 brain MRI OTHER: No other significant finding. IMPRESSION: Diffusion-weighted images are positive for a small nonhemorrhagic early subacute infarct up to 1-week-old. Chronic bifrontal small vessel ischemic change with old right basal ganglia and caudate infarcts EVIDENCE OF ACUTE STROKE: NO. TECHNICAL DOCUMENTATION: JOB ID: [id number] [employer]- All Rights Reserved Reading location - IP/workstation name: [email or web address]
[2018-02-26] MEDS: ASPIRIN 81 MG TABLET, ENT COATED PO SCH (10:14)
[2018-02-26] MEDS: ENOXAPARIN SODIUM INJ 30 MG/0.3 ML DISP.SYRIN SUBCUT SCH (10:14)
[2018-02-26] MEDS ORDERED: GLUCAGON,HUMAN RECOMB 1 MG INJ IM PRN (10:15)
[2018-02-26] MEDS ORDERED: DEXTROSE 50%-WATER 25 GM/50 ML DISP.SYRIN IV PRN ×2 (10:15)
[2018-02-26] MEDS ORDERED: DEXTROSE 40% GEL 15 GM TUBE PO PRN ×2 (10:15)
[2018-02-26] MEDS ORDERED: HYDRALAZINE HCL INJ/PF 20 MG/1 ML SDV IV PRN (10:16)
--- NOTE | 2018-02-26 11:23 | PDOC H&P ---
History of Present Illness Admission Date/PCP: 02/26/18 09:44 SHAWNA VELASQUEZ MD Patient complains of: L sided weakness History of Present Illness: FRANCISCO JAVIER GRAVES is a 72 year old female with a PMH of HTN, DM 2, HLD, CVA, osteoarthritis. The patient presents to [facility] ED following 24 hours of left- sided weakness. The daughter reports the patient remained in her recliner all day yesterday and would not ambulate around the house like she normally does. Today at 0500, the son-in-law noted slurred speech and left facial droop, which prompted the family to bring the patient to the emergency department. The patient has a history of R sided CVA in 2017 with residual deficits and now walks with a cane. Upon arrival to the ED, the patient's VS were BP HR RR T SPO2. The patient endorses significant LLE weakness and ataxia. Denies headache, neck pain, or blurry vision. The daughter, who lives with the patient denies confusion, altered mental status or seizure-like activity. EKG shows NSR with RBBB. CT head was relatively normal, only showing chronic microvascular changes. MRI head shows early subacute small nonhemorrhagic inferior cerebellar infarct and stable chronic small vessel ischemic changes in the mid amira. CXR benign. All laboratory studies, including CBC, CMP and coags, or normal. Upon assessment, the patient is resting comfortably in bed on room air. She is awake, alert and oriented, able to answer all questions appropriately. Mild slurring of speech is noted as well as left-sided facial droop. Lungs clear to auscultation. S1- S2. There is notable weakness to the LLE, the patient is not able to lift her leg up off the bed. When assisted, she is able to elevate her leg against gravity, but not against resistance. LLE strength 3/5. RLE strength 4/5. Plan to admit to hospitalist service for acute CVA. Past Medical History Cardiac Medical History: Reports: Hyperlipidema, Hypertension EENT Medical History: Reports: None Neurological Medical History: Reports: Ischemic CVA Endocrine Medical History: Reports: Diabetes Mellitus Type 2 Malignancy Medical History: Reports: None GI Medical History: Reports: None Musculoskeltal Medical History: Reports: Arthritis Psychiatric Medical History: Reports: None Traumatic Medical History: Reports: None Hematology: Reports: Anemia - hx of Past Surgical History Past Surgical History: Reports: Section - x 2 Social History Information Source: Patient, Relative Lives with: Family Smoking Status: Never Smoker Frequency of Alcohol Use: None Hx Recreational Drug Use: No Drugs: None Hx Prescription Drug Abuse: No - Advance Directive Resuscitation Status: Full Code Family History Family History: CAD - FATHER - "HEART DISEASE", Malignancy - MOTHER - LYMPHOMA Parental Family History Reviewed: Yes Children Family History Reviewed: No Sibling(s) Family History Reviewed.: Unknown Medication/Allergy Allergies/Adverse Reactions: Sulfa (Sulfonamide Antibiotics) Allergy (Unknown, Verified 02/26/18 07:37) unsure Review of Systems All systems: reviewed and no additional remarkable complaints except as stated Physical Exam Vital Signs: Temp Pulse Resp BP Pulse Ox 98.8 F 78 18 177/69 H 99 02/26/18 07:17 02/26/18 10:00 02/26/18 10:00 02/26/18 10:00 02/26/18 10:00 General appearance: PRESENT: no acute distress, well-developed, well-nourished Head exam: PRESENT: atraumatic Eye exam: PRESENT: conjunctiva pink, PERRLA Mouth exam: PRESENT: moist, tongue midline Neck exam: PRESENT: full ROM. ABSENT: JVD Respiratory exam: PRESENT: clear to auscultation jonathan, symmetrical, unlabored Cardiovascular exam: PRESENT: +S1, +S2 Pulses: PRESENT: normal radial pulses, normal dorsalis pedis pul GI/Abdominal exam: PRESENT: normal bowel sounds, soft. ABSENT: tenderness Rectal exam: PRESENT: deferred Extremities exam: PRESENT: pedal edema, +1 edema - B/L BELOW THE KNEES. ABSENT : full ROM - LLE WEAKNESS. 3/5 STRENGTH LLE. 4/5 STRENGTH RLE. Musculoskeletal exam: PRESENT: ambulatory - WITH CANE. ABSENT: full ROM - DECREASED ROM TO LLE. 3/5 STRENGTH LLE. 4/5 STRENGTH RLE. Neurological exam: PRESENT: alert, awake, oriented to person, oriented to place , oriented to time, oriented to situation Psychiatric exam: PRESENT: appropriate affect Skin exam: PRESENT: dry, intact, normal color Results Impressions: Head CT 02/26/18 06:51 IMPRESSION: No acute intracranial findings. Chest X-Ray 02/26/18 07:32 IMPRESSION: No evidence of acute intrathoracic disease. No significant change since the prior study. Head MRI 02/26/18 08:02 IMPRESSION: Diffusion-weighted images are positive for a small nonhemorrhagic early subacute infarct up to 1-week-old. Chronic bifrontal small vessel ischemic change with old right basal ganglia and caudate infarcts EVIDENCE OF ACUTE STROKE: NO. Status: Imported from PACS Assessment & Plan - Diagnosis (1) CVA (cerebral vascular accident) Qualifiers: CVA mechanism: unspecified Qualified Code(s): I63.9 - Cerebral infarction, unspecified Is this a current diagnosis for this admission?: Yes Plan: As evidence by MRI - (+) small nonhemorrhagic inferior cerebellar infarct No need to repeat carotid Dopplers, completed in 2017 -results completely normal. PT/OT Daily aspirin and statin therapy Maintain SBP < 180 with PRN hydralazine IV MENDS q4h NIH Stroke Scale q shift Lovenox and AJAY hose for DVT PPX (2) Hyperlipidemia Qualifiers: Hyperlipidemia type: unspecified Qualified Code(s): E78.5 - Hyperlipidemia , unspecified Is this a current diagnosis for this admission?: Yes Plan: History of HLD Resume home dose statin Lipid panel in a.m. (3) Hypertension Qualifiers: Hypertension type: essential hypertension Qualified Code(s): I10 - Essential (primary) hypertension Is this a current diagnosis for this admission?: Yes Plan: History of HTN Resume home dose antihypertensives IV hydralazine as needed for SBP > 180 (4) Type 2 diabetes mellitus Qualifiers: Diabetes mellitus mcc insulin use: unspecified mcc insulin use status Diabetes mellitus complication status: with unspecified complications Qualified Code(s): E11.8 - Type 2 diabetes mellitus with unspecified complications Is this a current diagnosis for this admission?: Yes Plan: History of DM2 Accu-Cheks before meals at bedtime Humalog sliding scale insulin Hgb A1c in a.m. - Time Time Spent: 30 to 50 Minutes Medications reviewed and adjusted accordingly: Yes Anticipated discharge: Home Within: within 72 hours - Inpatient Certification Based on my medical assessment, after consideration of the patient's comorbidities, presenting symptoms, or acuity I expect that the services needed warrant INPATIENT care.: Yes I certify that my determination is in accordance with my understanding of Medicare's requirements for reasonable and necessary INPATIENT services [42 CFR 412.3e].: Yes Medical Necessity: Risk of Complication if Not Cared For in Hospital - Plan Summary Plan Summary: ADMIT TO HOSPITALIST SERVICE FOR SUBACUTE STROKE. PT/OT EVAL. ASPIRIN AND PLAVIX.
[2018-02-26 14:05] LABS: CREATINE KINASE MB 0.33 ng/mL (<4.55)
[2018-02-26 14:08] LABS: TROPONIN I < 0.012 ng/mL
[2018-02-26 20:09] LABS: CREATINE KINASE MB 0.26 ng/mL (<4.55)
[2018-02-26 20:17] LABS: TROPONIN I < 0.012 ng/mL
[2018-02-26] MEDS: INSULIN DETEMIR 100 UNIT/ML 3 ML PEN SUBCUT SCH (21:48)
[2018-02-26] MEDS: ATORVASTATIN CALCIUM 40 MG TABLET PO SCH (21:48)
[2018-02-26] MEDS: METOPROLOL TARTRATE 25 MG TABLET PO SCH (21:48)
[2018-02-26] MEDS: MONTELUKAST SODIUM 10 MG TABLET PO SCH (21:48)
[2018-02-26 23:01] LABS: APPEARANCE,URINE CLOUDY; BILIRUBIN,URINE NEGATIVE (NEGATIVE); COLOR,URINE YELLOW; GLUCOSE, URINE NEGATIVE (NEGATIVE); KETONES,URINE NEGATIVE (NEGATIVE); LEUKOCYTE ESTERASE,URINE MODERATE (NEGATIVE); NITRITE,URINE NEGATIVE (NEGATIVE); PROTEIN,URINE NEGATIVE (NEGATIVE); URINE SPECIFIC GRAVITY 1.018; UROBILINOGEN,URINE NEGATIVE mg/dL (<2.0)
[2018-02-27 02:10] LABS: CREATINE KINASE MB 0.31 ng/mL (<4.55)
[2018-02-27 02:11] LABS: TROPONIN I < 0.012 ng/mL
[2018-02-27 06:42] LABS: HEMATOCRIT 33.8 % (36.0-47.0); HEMOGLOBIN 11.1 g/dL (12.0-15.5); MEAN CORPUSCULAR HEMOGLOBIN 25.9 pg (27.0-33.4); MEAN CORPUSCULAR VOLUME 79 fl (80-97); PLATELET COUNT 277 10^3/uL (150-450); RED BLOOD COUNT 4.29 10^6/uL (3.72-5.28); WHITE BLOOD COUNT 6.5 10^3/uL (4.0-10.5)
[2018-02-27 07:00] LABS: ALANINE AMINOTRANSFERASE 8 U/L (9-52); ALBUMIN 3.9 g/dL (3.5-5.0); ALKALINE PHOSPHATASE 61 U/L (38-126); ANION GAP 10 (5-19); ASPARTATE AMINO TRANSFERASE 14 U/L (14-36); BILIRUBIN,DIRECT 0.2 mg/dL (0.0-0.4); BILIRUBIN,TOTAL 0.9 mg/dL (0.2-1.3); BLOOD UREA NITROGEN 11 mg/dL (7-20); CALCIUM 9.4 mg/dL (8.4-10.2); CARBON DIOXIDE 28 mmol/L (22-30); CHLORIDE 101 mmol/L (98-107); CHOLESTEROL 196.53 mg/dL (0-200); GLUCOSE 134 mg/dL (75-110); POTASSIUM 3.5 mmol/L (3.6-5.0); TOTAL PROTEIN 7.3 g/dL (6.3-8.2); TRIGLYCERIDES 116 mg/dL (<150)
[2018-02-27 07:12] LABS: DIRECT LDL 100 mg/dL (<100)
[2018-02-27] MEDS: FUROSEMIDE 20 MG TABLET PO SCH (09:30)
[2018-02-27] MEDS: ENOXAPARIN SODIUM INJ 30 MG/0.3 ML DISP.SYRIN SUBCUT SCH (09:30)
[2018-02-27] MEDS: METOPROLOL TARTRATE 25 MG TABLET PO SCH ×2 (09:30→21:53)
[2018-02-27] MEDS: ASPIRIN 81 MG TABLET, ENT COATED PO SCH (09:30)
[2018-02-27] MEDS: AMLODIPINE BESYLATE 10 MG TABLET PO SCH (09:30)
[2018-02-27] MEDS ORDERED: ERGOCALCIFEROL (VITAMIN D2) 50000 UNIT (1.25 MG) CAPSULE PO SCH (10:00)
[2018-02-27] MEDS ORDERED: ATORVASTATIN CALCIUM 40 MG TABLET PO SCH (10:00)
[2018-02-27] MEDS: CETIRIZINE 10 MG TABLET PO SCH (11:49)
[2018-02-27] MEDS: INSULIN LISPRO 100 UNIT/ML 3 ML VIAL SUBCUT PRN ×3 (12:44→21:53)
--- NOTE | 2018-02-27 15:03 | RADIOLOGY REPORT (SQ) ---
EXAM DESCRIPTION: CT HEAD WITHOUT COMPLETED DATE/TIME: 02/27/2018 2:40 pm REASON FOR STUDY: Assesss increased weakness and facial droop COMPARISON: Noncontrast head CT and MRI brain 02/26/2018 TECHNIQUE: Axial images acquired through the brain without intravenous contrast. Images reviewed wi th bone, brain and subdural windows. Additional sagittal and coronal reconstructions were generated. Images stored on PACS. All CT scanners at this facility use dose modulation, iterative reconstruction, and/or weight based d osing when appropriate to reduce radiation dose to as low as reasonably achievable (ALARA). [facility]: Dose Right [facility]: CareDose [facility]: Dose Right [facility]: Teradose 4D [facility]: Smart Lootsie RADIATION DOSE: CT Rad equipment meets quality standard of care and radiation dose reduction techniq ues were employed. CTDIvol: 53.2 mGy. DLP: 991 mGy-cm. mGy. LIMITATIONS: None. FINDINGS: VENTRICLES: Prominent ventricles secondary to involutional atrophy. CEREBRUM: No masses. No hemorrhage. No midline shift. No evidence for acute infarction. Re- demons tration of periventricular hypoattenuation, consistent with sequela of previous ischemic injury. A s ubacute ischemic injury within the right cerebellar hemisphere identified on yesterday's MRI of the b rain is again seen. No evidence of large territory ischemia. CEREBELLUM: No masses. No hemorrhage. Right cerebellar hypoattenuation correlates to abnormal findi ngs on comparison CT and MRI imaging performed 02/26/2018. No evidence for acute infarction. EXTRAAXIAL SPACES: No fluid collections. No masses. ORBITS AND GLOBE: No intra- or extraconal masses. Normal contour of globe without masses. CALVARIUM: No fracture. PARANASAL SINUSES: No fluid or mucosal thickening. SOFT TISSUES: No mass or hematoma. OTHER: Dense atherosclerotic vascular calcifications are seen within the cavernous segments of the in ternal carotid artery is bilaterally. IMPRESSION: Stable CT appearance of the brain demonstrating chronic and subacute ischemic injuries a s detailed above. No acute findings. EVIDENCE OF ACUTE STROKE: NO. COMMENT: Pertinent positive or negative findings of the imaging study reported as a CRITICAL EXAM ronald STOREY MD at14:57 on 02/27/2018. Category of Critical Exam: Stroke protocol Quality ID # [id number]: Final reports with documentation of one or more dose reduction techniques (e.g., Au tomated exposure control, adjustment of the mA and/or kV according to patient size, use of iterative reconstruction technique) TECHNICAL DOCUMENTATION: JOB ID: [id number] [employer]- All Rights Reserved Reading location - IP/workstation name: [email or web address]
--- NOTE | 2018-02-27 20:51 | PDOC PROGRESS REPORT ---
Subjective Progress Note for:: 02/27/18 Subjective:: FRANCISCO JAVIER GRAVES is a 72 year old female with a PMH of HTN, DM 2, HLD, CVA, osteoarthritis. Admitted to [facility] 02/26/2018 for cerebellar stroke. The patient was seen this morning on rounds. She is resting comfortably in bed on room air. The patient is A&Ox3, she is able to answer questions appropriately , mild speech slurring noted this morning but remains unchanged from yesterday. L Facial droop has improved slightly. 5/5 strength in upper extremities and good hand/eye coordination. Significant weakness to lower extremities, L worse than R. LLE 3/5. RLE 4/5. Physical therapy was able to assess patient today. Report she is unable to get OOB due to lower extremity weakness. Recommend Acute Rehab following hospitalization at [facility]. Continue ASA and statin therapy. Plan for rehab post-discharge. Reason For Visit: CVA Physical Exam Vital Signs: Temp Pulse Resp BP Pulse Ox 98.8 F 93 26 H 173/80 H 98 02/27/18 19:46 02/27/18 19:46 02/27/18 19:46 02/27/18 19:46 02/27/18 19:46 Intake & Output 02/26/18 02/27/18 02/28/18 06:59 06:59 06:59 Intake Total 350 975 Output Total 100 Balance 250 975 Weight 82.1 kg General appearance: PRESENT: no acute distress, well-developed, well-nourished Eye exam: PRESENT: conjunctiva pink, PERRLA Mouth exam: PRESENT: moist, neck supple, tongue midline Teeth exam: PRESENT: poor dentation Neck exam: PRESENT: full ROM Respiratory exam: PRESENT: clear to auscultation jonathan, symmetrical, unlabored Cardiovascular exam: PRESENT: +S1, +S2 Pulses: PRESENT: normal radial pulses, normal dorsalis pedis pul Vascular exam: PRESENT: normal capillary refill GI/Abdominal exam: PRESENT: normal bowel sounds, soft. ABSENT: tenderness Rectal exam: PRESENT: deferred Extremities exam: PRESENT: pedal edema, +1 edema - BILATERAL LOWER EXTREMITIES. ABSENT: full ROM - SIGNIFICANT WEAKNESS TO LLE (3/5), MILD WEAKNESS NOTED TO RLE (4/5) Musculoskeletal exam: ABSENT: ambulatory - UNABLE TO AMBULATE 2/2 LOWER EXTREMITY WEAKNESS, full ROM Neurological exam: PRESENT: alert, awake, oriented to person, oriented to place , oriented to time, oriented to situation Psychiatric exam: PRESENT: appropriate affect Skin exam: PRESENT: dry, intact, normal color Results Laboratory Results: 02/27/18 06:33 02/27/18 06:33 02/26/18 02/27/18 02/27/18 22:38 06:33 06:33 WBC 6.5 RBC 4.29 Hgb 11.1 L Hct 33.8 L MCV 79 L MCH 25.9 L MCHC 33.0 RDW 15.0 H Plt Count 277 Sodium 139.0 Potassium 3.5 L Chloride 101 Carbon Dioxide 28 Anion Gap 10 BUN 11 Creatinine 0.60 Est GFR ( Amer) > 60 Est GFR (Non-Af Amer) > 60 Glucose 134 H Calcium 9.4 Total Bilirubin 0.9 AST 14 ALT 8 L Alkaline Phosphatase 61 Total Protein 7.3 Albumin 3.9 Triglycerides 116 Cholesterol 196.53 LDL Cholesterol Direct 100 VLDL Cholesterol 23.0 HDL Cholesterol 48 Urine Color YELLOW Urine Appearance CLOUDY Urine pH 5.0 Ur Specific [place] 1.018 Urine Protein NEGATIVE Urine Glucose (UA) NEGATIVE Urine Ketones NEGATIVE Urine Blood NEGATIVE Urine Nitrite NEGATIVE Ur Leukocyte Esterase MODERATE H Urine WBC (Auto) 19 Urine RBC (Auto) 1 02/26/18 02/26/18 02/27/18 13:15 19:20 01:27 CK-MB (CK-2) 0.33 0.26 0.31 Troponin I < 0.012 < 0.012 < 0.012 Impressions: Chest X-Ray 02/26/18 07:32 IMPRESSION: No evidence of acute intrathoracic disease. No significant change since the prior study. Head MRI 02/26/18 08:02 IMPRESSION: Diffusion-weighted images are positive for a small nonhemorrhagic early subacute infarct up to 1-week-old. Chronic bifrontal small vessel ischemic change with old right basal ganglia and caudate infarcts EVIDENCE OF ACUTE STROKE: NO. Head CT 02/27/18 00:00 IMPRESSION: Stable CT appearance of the brain demonstrating chronic and subacute ischemic injuries as detailed above. No acute findings. EVIDENCE OF ACUTE STROKE: NO. Status: Imported from PACS Assessment & Plan - Diagnosis (1) CVA (cerebral vascular accident) Qualifiers: CVA mechanism: unspecified Qualified Code(s): I63.9 - Cerebral infarction, unspecified Is this a current diagnosis for this admission?: Yes Plan: As evidence by MRI - (+) small nonhemorrhagic inferior cerebellar infarct No need to repeat carotid Dopplers, completed in 2017 -results completely normal. PT/OT - evaluation today revealed the patient was unable to get OOB due to lower extremity weakness. Plan for Acute rehab following hospitalization at [facility] Daily aspirin and statin therapy Maintain SBP < 180 with PRN hydralazine IV MENDS q4h NIH Stroke Scale q shift Lovenox and AJAY hose for DVT PPX (2) Hyperlipidemia Qualifiers: Hyperlipidemia type: unspecified Qualified Code(s): E78.5 - Hyperlipidemia , unspecified Is this a current diagnosis for this admission?: Yes Plan: History of HLD Resume home dose statin Lipid panel WNL (3) Hypertension Qualifiers: Hypertension type: essential hypertension Qualified Code(s): I10 - Essential (primary) hypertension Is this a current diagnosis for this admission?: Yes Plan: History of HTN Resume home dose antihypertensives IV hydralazine as needed for SBP > 180 (4) Type 2 diabetes mellitus Qualifiers: Diabetes mellitus retirement insulin use: unspecified 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 Diabetes mellitus complication status: with unspecified complications Qualified Code(s): E11.8 - Type 2 diabetes mellitus with unspecified complications Is this a current diagnosis for this admission?: Yes Plan: History of DM2 Accu-Cheks before meals at bedtime Humalog sliding scale insulin Hgb A1c 8.9 Request international coordinator to meet with patient - Time Time Spent with patient: 15-24 minutes Medications reviewed and adjusted accordingly: Yes Anticipated discharge: Acute Rehab Within: within 48 hours - Inpatient Certification Based on my medical assessment, after consideration of the patient's comorbidities, presenting symptoms, or acuity I expect that the services needed warrant INPATIENT care.: Yes I certify that my determination is in accordance with my understanding of Medicare's requirements for reasonable and necessary INPATIENT services [42 CFR 412.3e].: Yes Medical Necessity: Risk of Complication if Not Cared For in Hospital - Plan Summary Plan Summary: ASA AND STATIN THERAPY. PATIENT UNABLE TO AMBULATE WITH PT DUE TO LEG WEAKNESS. WILL REQUIRE ACUTE REHAB FOLLOWING HOSPITALIZATION AT [facility]. REQUESTING ASSISTANCE FROM D/C PLANNING TO FIND PLACEMENT.
[2018-02-27] MEDS: MONTELUKAST SODIUM 10 MG TABLET PO SCH (21:53)
[2018-02-27] MEDS: ATORVASTATIN CALCIUM 40 MG TABLET PO SCH (21:53)
[2018-02-27] MEDS: INSULIN DETEMIR 100 UNIT/ML 3 ML PEN SUBCUT SCH (21:53)
[2018-02-28 04:51] LABS: HEMATOCRIT 34.5 % (36.0-47.0); HEMOGLOBIN 11.4 g/dL (12.0-15.5); MEAN CORPUSCULAR HEMOGLOBIN 25.9 pg (27.0-33.4); MEAN CORPUSCULAR VOLUME 78 fl (80-97); PLATELET COUNT 298 10^3/uL (150-450); RED BLOOD COUNT 4.41 10^6/uL (3.72-5.28); RED CELL DISTRIBUTION WIDTH 14.9 % (11.5-14.0); WHITE BLOOD COUNT 7.7 10^3/uL (4.0-10.5)
[2018-02-28 05:19] LABS: ANION GAP 12 (5-19); BLOOD UREA NITROGEN 10 mg/dL (7-20); CALCIUM 10.2 mg/dL (8.4-10.2); CARBON DIOXIDE 24 mmol/L (22-30); CHLORIDE 104 mmol/L (98-107); GLUCOSE 120 mg/dL (75-110); PHOSPHORUS 4.1 mg/dL (2.5-4.5); POTASSIUM 3.4 mmol/L (3.6-5.0); SODIUM 140.2 mmol/L (137-145)
[2018-02-28] MEDS ORDERED: ACETAMINOPHEN 325 MG TABLET PO PRN (09:07)
[2018-02-28] MEDS ORDERED: TRAMADOL HCL 50 MG TABLET PO PRN (10:23)
[2018-02-28] MEDS: ENOXAPARIN SODIUM INJ 30 MG/0.3 ML DISP.SYRIN SUBCUT SCH (10:42)
[2018-02-28] MEDS: METOPROLOL TARTRATE 25 MG TABLET PO SCH ×2 (10:43→21:15)
[2018-02-28] MEDS: FUROSEMIDE 20 MG TABLET PO SCH (10:43)
[2018-02-28] MEDS: ASPIRIN 325 MG TABLET, ENT COATED PO SCH (10:43)
[2018-02-28] MEDS: CETIRIZINE 10 MG TABLET PO SCH (10:43)
[2018-02-28] MEDS: AMLODIPINE BESYLATE 10 MG TABLET PO SCH (10:43)
[2018-02-28] MEDS: INSULIN LISPRO 100 UNIT/ML 3 ML VIAL SUBCUT PRN ×2 (11:58→17:50)
[2018-02-28] MEDS: GABAPENTIN 100 MG CAPSULE PO SCH ×2 (14:32→21:15)
--- NOTE | 2018-02-28 17:00 | PDOC PROGRESS REPORT ---
Subjective Progress Note for:: 02/28/18 Subjective:: Pt still has right upper extremity weakness and speech is still slurred. Had repeat head CT yesterday that did not show any new abnormality.She was seen by PT/OT today, but speech therapy was postponed till tomorrow as per pt's daughter 's request. The nurse discharge planner is still working on SNF placement for REHAB. Reason For Visit: CVA Physical Exam Vital Signs: Temp Pulse Resp BP Pulse Ox 98.4 F 73 18 140/71 H 96 02/28/18 15:35 02/28/18 15:35 02/28/18 15:35 02/28/18 15:35 02/28/18 15:35 Intake & Output 02/27/18 02/28/18 03/01/18 06:59 06:59 06:59 Intake Total 350 1005 250 Output Total 100 Balance 250 1005 250 Weight 82.1 kg 78.6 kg General appearance: PRESENT: no acute distress, cooperative, well-developed, well-nourished Head exam: PRESENT: atraumatic, normocephalic Eye exam: PRESENT: EOMI, PERRLA Ear exam: PRESENT: normal external ear exam Mouth exam: PRESENT: neck supple, tongue midline Neck exam: PRESENT: full ROM Respiratory exam: PRESENT: clear to auscultation jonathan, symmetrical Cardiovascular exam: PRESENT: +S1, +S2 Pulses: PRESENT: +2 pedal pulses bilateral GI/Abdominal exam: PRESENT: normal bowel sounds, soft Rectal exam: PRESENT: deferred Neurological exam: PRESENT: alert, awake, oriented to person, oriented to place , oriented to time Additional comments: Right upper extremity power- 3+/5; rest of left upper and lower extremity and right lower extremity- 4/5. Psychiatric exam: PRESENT: normal mood Results Laboratory Results: 02/28/18 03:44 02/28/18 03:44 02/28/18 02/28/18 03:44 03:44 WBC 7.7 RBC 4.41 Hgb 11.4 L Hct 34.5 L MCV 78 L MCH 25.9 L MCHC 33.0 RDW 14.9 H Plt Count 298 Sodium 140.2 Potassium 3.4 L Chloride 104 Carbon Dioxide 24 Anion Gap 12 BUN 10 Creatinine 0.66 Est GFR ( Amer) > 60 Est GFR (Non-Af Amer) > 60 Glucose 120 H Calcium 10.2 Phosphorus 4.1 Magnesium 1.6 02/26/18 02/26/18 02/27/18 13:15 19:20 01:27 CK-MB (CK-2) 0.33 0.26 0.31 Troponin I < 0.012 < 0.012 < 0.012 Impressions: Chest X-Ray 02/26/18 07:32 IMPRESSION: No evidence of acute intrathoracic disease. No significant change since the prior study. Head MRI 02/26/18 08:02 IMPRESSION: Diffusion-weighted images are positive for a small nonhemorrhagic early subacute infarct up to 1-week-old. Chronic bifrontal small vessel ischemic change with old right basal ganglia and caudate infarcts EVIDENCE OF ACUTE STROKE: NO. Head CT 02/27/18 00:00 IMPRESSION: Stable CT appearance of the brain demonstrating chronic and subacute ischemic injuries as detailed above. No acute findings. EVIDENCE OF ACUTE STROKE: NO. Assessment & Plan - Diagnosis (1) CVA (cerebral vascular accident) Qualifiers: CVA mechanism: unspecified Qualified Code(s): I63.9 - Cerebral infarction, unspecified Is this a current diagnosis for this admission?: Yes Plan: Ct with Aspirin 325 mg qd po; Atorvastatin 40 mg qhs po; PT/OT and speech therapy. (2) Type 2 diabetes mellitus Qualifiers: Diabetes mellitus director outpatient services insulin use: unspecified residential insulin use status Diabetes mellitus complication status: with unspecified complications Qualified Code(s): E11.8 - Type 2 diabetes mellitus with unspecified complications Is this a current diagnosis for this admission?: Yes Plan: Ct with accucheck qac, qhs with slidding scale with humalog insulin [facility] protocol ; Levemir 35 iu qhs subcut; Metformin 1000mg BID PO; 1800 calorie ADA diet. (3) Hypertension Qualifiers: Hypertension type: essential hypertension Qualified Code(s): I10 - Essential (primary) hypertension Is this a current diagnosis for this admission?: Yes Plan: Ct with Amlodipine 10 mg qd po; Metoprolol 25 mg BID PO; 2 g sodium diet. (4) Hyperlipidemia Qualifiers: Hyperlipidemia type: unspecified Qualified Code(s): E78.5 - Hyperlipidemia , unspecified Is this a current diagnosis for this admission?: Yes Plan: Ct with Atorvastatin 40 mg qhs po; 200mg cholesterol diet. (5) Diabetic neuropathy Qualifiers: Diabetes mellitus complication detail: diabetic polyneuropathy Is this a current diagnosis for this admission?: Yes Plan: Ct with Gabapentin 100 mg TID PO. (6) Vitamin D deficiency Is this a current diagnosis for this admission?: Yes Plan: Ct with Vitamin D 57750vw weekly PO. (7) Lumbago Qualifiers: Chronicity: unspecified Is this a current diagnosis for this admission?: Yes Plan: Ct with Tramadol 50 mg TID prn; Tylenol 650 mg q6h po prn. (8) DVT prophylaxis Is this a current diagnosis for this admission?: Yes Plan: Ct with Lovenox 30 mg qd subcut; SCD.
[2018-02-28] MEDS ORDERED: POTASSIUM CHLORIDE 20 MEQ/15 ML UDCUP PO ONE ×2 (18:30→21:00)
[2018-02-28] MEDS ORDERED: POTASSIUM CHLORIDE 20 MEQ/15 ML UDCUP ONE (20:53)
[2018-02-28] MEDS: ATORVASTATIN CALCIUM 40 MG TABLET PO SCH (21:15)
[2018-02-28] MEDS: MONTELUKAST SODIUM 10 MG TABLET PO SCH (21:15)
[2018-02-28] MEDS: INSULIN DETEMIR 100 UNIT/ML 3 ML PEN SUBCUT SCH (21:18)
--- NOTE | 2018-02-28 21:48 | RADIOLOGY REPORT (SQ) ---
PROCEDURE: MRI OF THE BRAIN WITHOUT INTRAVENOUS CONTRAST Clinical History: TIA/sleard speech Indications: Same as above Comparison: CT of the head done on 02/27/2018 and MRI of the brain done on 02/26/2018 Technique: The study was done on 02/28/2018 at 8:01 PM, local time Noncontrast MRI of the brain was done in a multiplanar and multi-sequence format. Findings: There is presence of new acute infarct in the left side of the amira. An old subacute infarct in the right inferior cerebellar hemisphere is also noted. There is no midline shift. Extensive chronic small vessel white matter ischemic change is noted in the bilateral cerebral hemispheres in the periventricular distribution. Old infarcts in the right periventricular region are again noted There are no extra-axial fluid collections. The meninges appear unremarkable, given the limitation of lack of intravenous contrast There is normal flow-void in the intracranial vasculature. The ventricular system is normal. The craniovertebral junction appears grossly unremarkable. The mastoid air cells are unremarkable . The paranasal sinuses are unremarkable . Limited evaluation of the bilateral orbits, pituitary fossa region and the posterior fossa region including the cerebellopontine angles do not show any gross abnormality. The findings were discussed with Dr. Edouard BAPTISTE at 8:46 PM CDT Impression: There is presence of new acute infarct in the left side of the amira. An old subacute infarct in the right inferior cerebellar hemisphere is also noted. Extensive chronic small vessel white matter ischemic change is noted in the bilateral cerebral hemispheres in the periventricular distribution .Old infarcts in the right periventricular region are again noted Location of Interpretation: [facility].
[2018-03-01] MEDS: GABAPENTIN 100 MG CAPSULE PO SCH ×2 (05:35→14:05)
[2018-03-01 06:08] LABS: HEMATOCRIT 32.9 % (36.0-47.0); MEAN CORPUSCULAR HEMOGLOBIN 26.1 pg (27.0-33.4); MEAN CORPUSCULAR HGB CONC 33.5 g/dL (32.0-36.0); MEAN CORPUSCULAR VOLUME 78 fl (80-97); PLATELET COUNT 315 10^3/uL (150-450); RED BLOOD COUNT 4.22 10^6/uL (3.72-5.28); RED CELL DISTRIBUTION WIDTH 14.9 % (11.5-14.0); WHITE BLOOD COUNT 8.4 10^3/uL (4.0-10.5)
[2018-03-01 06:36] LABS: ANION GAP 12 (5-19); BLOOD UREA NITROGEN 13 mg/dL (7-20); CALCIUM 10.1 mg/dL (8.4-10.2); CARBON DIOXIDE 24 mmol/L (22-30); CHLORIDE 103 mmol/L (98-107); GLUCOSE 87 mg/dL (75-110); PHOSPHORUS 4.5 mg/dL (2.5-4.5); POTASSIUM 3.9 mmol/L (3.6-5.0); SODIUM 138.5 mmol/L (137-145)
--- NOTE | 2018-03-01 08:40 | RADIOLOGY REPORT (SQ) ---
EXAM DESCRIPTION: CAROTID DOPPLER COMPLETED DATE/TIME: 03/01/2018 8:08 am REASON FOR STUDY: SLEARD SPEECH/ TIA COMPARISON: CT brain 02/27/2018, 02/26/2018 MRI brain 02/26/2018, 02/28/2018 Parotid Doppler 02/22/2017 TECHNIQUE: Grayscale ultrasound, Doppler velocity and spectra, and color Doppler images acquired of the extra-cranial carotid and vertebral arteries. Images stored on PACS. LIMITATIONS: None. FINDINGS: RIGHT CAROTID CCA Velocities: Within normal limits. Peak systolic velocity 79 m/sec ICA Velocities Peak systolic 55 m/s. End diastolic 17 m/s. Proximal ICA/CCA peak systolic ratio 1.5. Spectra normal. No significant plaque. LEFT CAROTID CCA Velocities: Within normal limits. Remaining systolic velocity 0.51 m/sec ICA Velocities Peak systolic 0.45 m/s. End diastolic 0.16 m/s. Proximal ICA/CCA peak systolic ratio 1.2. Spectra normal. No significant plaque. VERTEBRAL ARTERIES: Antegrade flow. Normal waveforms. SUBCLAVIAN ARTERIES: Not evaluated OTHER: No other significant finding. IMPRESSION: NO HEMODYNAMICALLY SIGNIFICANT STENOSIS. COMMENT: Quality ID #[id number]: Velocity criteria are extrapolated from the diameter data as defined by t he Society of Radiologists in Ultrasound Consensus Conference. Radiology 2003: 229; 340-346. TECHNICAL DOCUMENTATION: JOB ID: [id number] All Rights Reserved Reading location - IP/workstation name: [facility]
[2018-03-01] MEDS ORDERED: POTASSIUM CHLORIDE 10 MEQ CAPSULE.ER PO SCH (10:00)
--- NOTE | 2018-03-01 11:26 | PDOC TRANSFER SUMMARY ---
General Admission Date/PCP: 02/26/18 09:44 NAS BAPTISTE Admission Date: 02/26/18 Transfer Date: 03/01/18 Accepting Facility: [facility] Accepting Physician: Dr Recinos Resuscitation Status: Full Code - Transfer Diagnosis (1) CVA (cerebral vascular accident) Is this a current diagnosis for this admission?: Yes (2) Type 2 diabetes mellitus Is this a current diagnosis for this admission?: Yes (3) Hypertension Is this a current diagnosis for this admission?: Yes (4) Hyperlipidemia Is this a current diagnosis for this admission?: Yes (5) Diabetic neuropathy Is this a current diagnosis for this admission?: Yes (6) Vitamin D deficiency Is this a current diagnosis for this admission?: Yes (7) Lumbago Is this a current diagnosis for this admission?: Yes (8) DVT prophylaxis Is this a current diagnosis for this admission?: Yes - Transfer Medications Home Medications: Amlodipine Besylate [Norvasc 10 mg Tablet] 10 mg PO DAILY 02/26/18 Atorvastatin Calcium [Lipitor 40 mg Tablet] 40 mg PO DAILY 02/26/18 Ergocalciferol (Vitamin D2) [Vitamin D2] 50,000 unit PO KIRBY@1000 02/26/18 Furosemide [Lasix 20 mg Tablet] 20 mg PO DAILY 02/26/18 Gabapentin [Neurontin 100 mg Capsule] 100 mg PO Q8 02/26/18 Glimepiride [Amaryl] 2 mg PO BID 02/26/18 Insulin Detemir [Levemir Flextouch] 10 unit SQ QAM 02/26/18 Insulin Detemir [Levemir Flextouch] 35 unit SQ QHS 02/26/18 Meloxicam [Mobic] 7.5 mg PO DAILYP PRN 02/26/18 Metformin HCl [Glucophage] 1,000 mg PO BID 02/26/18 Metoprolol Tartrate [Lopressor 25 mg Tablet] 25 mg PO Q12 02/26/18 Montelukast Sodium [Singulair 10 mg Tablet] 10 mg PO QHS 02/26/18 Potassium Chloride [Klor-Con 10 Meq Capsule ER] 10 meq PO DAILY 02/26/18 Tramadol HCl [Ultram 50 mg Tablet] 50 mg PO BIDP PRN 02/26/18 Transfer Medications: Current Medications Acetaminophen (Tylenol 325 Mg Tablet) 650 mg PO Q6HP PRN PRN Reason: FOR PAIN OR TEMP Stop: 03/30/18 09:06 Amlodipine Besylate (Norvasc 10 Mg Tablet) 10 mg PO DAILY [facility] Stop: 03/29/18 09:59 Last Admin: 02/28/18 10:43 Dose: 10 mg Aspirin (Ecotrin 325 Mg Ec Tablet) 325 mg PO DAILY [facility] Stop: 03/30/18 09:59 Last Admin: 02/28/18 10:43 Dose: 325 mg Atorvastatin Calcium (Lipitor 40 Mg Tablet) 40 mg PO QHS [facility] Stop: 03/28/18 21:59 Last Admin: 02/28/18 21:15 Dose: 40 mg Cetirizine HCl (Zyrtec 10 Mg Tablet) 10 mg PO DAILY [facility] Stop: 03/29/18 10:59 Last Admin: 02/28/18 10:43 Dose: 10 mg Dextrose (Dextrose Inj 50% Syringe (25 Gm/50 Ml)) 12.5 gm IV PRN PRN; Protocol PRN Reason: FOR BG 50-69 IN ALERT PATIENT Stop: 03/28/18 10:14 Dextrose (Dextrose Inj 50% Syringe (25 Gm/50 Ml)) 25 gm IV PRN PRN; Protocol PRN Reason: PER PROTOCOL Stop: 03/28/18 10:14 Enoxaparin Sodium (Lovenox Inj 30 Mg/0.3 Ml Disp.Syrin) 30 mg SUBCUT DAILY [facility] Stop: 03/28/18 09:59 Last Admin: 02/28/18 10:42 Dose: 30 mg Ergocalciferol (Drisdol 50,000 Unit (1.25mg) Capsule) 50,000 unit PO KIRBY@1000 [facility] Stop: 03/29/18 09:59 Last Admin: 02/27/18 09:30 Dose: 50,000 unit Furosemide (Lasix 20 Mg Tablet) 20 mg PO DAILY [facility] Stop: 03/29/18 09:59 Last Admin: 02/28/18 10:43 Dose: 20 mg Gabapentin (Neurontin 100 Mg Capsule) 100 mg PO Q8 [facility] Stop: 03/30/18 13:59 Last Admin: 03/01/18 05:35 Dose: 100 mg Glucagon (Glucagen Inj 1 Mg Vial) 1 mg IM PRN PRN; Protocol PRN Reason: Evaluate for BG < 70 Stop: 03/28/18 10:14 Glucose (Glutose 40% Gel 15 Gm Tube) 15 gm PO PRN PRN; Protocol PRN Reason: FOR BG 50-69 IN ALERT PATIENT Stop: 03/28/18 10:14 Glucose (Glutose 40% Gel 15 Gm Tube) 30 gm PO PRN PRN; Protocol PRN Reason: FOR BG < 50 IN ALERT PATIENT Stop: 03/28/18 10:14 Hydralazine HCl (Apresoline Inj/Pf 20 Mg/1 Ml Sdv) 10 mg IV Q6HP PRN PRN Reason: Give For Sbp > 180 Stop: 03/28/18 10:15 Last Admin: 02/27/18 07:47 Dose: 10 mg Influenza Virus Vaccine Quadrival (Fluarix Adlt Quad Vac 0.5 Ml Syr) 0.5 ml IM .DISCHARGE PRN PRN Reason: THIS MED IS NOT "PRN" Stop: 03/28/18 15:24 Insulin Detemir (Levemir Insulin 300 Units/3 Ml Insuln.Pen) 35 unit SUBCUT QHS [facility] Stop: 03/28/18 21:59 Last Admin: 02/28/18 21:18 Dose: 35 units Insulin Human Lispro (Humalog Insulin 100 Unit/1 Ml 3 Ml Vial) 0 - 12 unit SUBCUT ACHSP PRN; Protocol PRN Reason: PER PROTOCOL Stop: 03/28/18 10:14 Last Admin: 02/28/18 17:50 Dose: 4 unit Metoprolol Tartrate (Lopressor 25 Mg Tablet) 25 mg PO Q12 [facility] Stop: 03/28/18 21:59 Last Admin: 02/28/18 21:15 Dose: 25 mg Montelukast Sodium (Singulair 10 Mg Tablet) 10 mg PO QHS [facility] Stop: 03/28/18 21:59 Last Admin: 02/28/18 21:15 Dose: 10 mg Ondansetron HCl (Zofran Odt 4 Mg Tablet) 4 mg PO Q4HP PRN PRN Reason: FOR NAUSEA/VOMITING Stop: 03/28/18 09:42 Potassium Chloride (Klor-Con 10 Meq Capsule Er) 10 meq PO DAILY [facility] Stop: 03/31/18 09:59 Sodium Chloride (Saline Flush 2.5 Ml Monoject Prefil Syrin) 2.5 ml IV Q8 [facility] Stop: 03/28/18 13:59 Last Admin: 03/01/18 05:35 Dose: 2.5 ml Tramadol HCl (Ultram 50 Mg Tablet) 50 mg PO Q8HP PRN PRN Reason: FOR PAIN Stop: 03/07/18 10:22 Last Admin: 02/28/18 10:41 Dose: 50 mg - Allergies Allergies/Adverse Reactions: Sulfa (Sulfonamide Antibiotics) Allergy (Unknown, Verified 02/26/18 07:37) unsure Hospital Course Hospital Course: 72 year old woman with hx of DM2/HTN/Hyperlipidemia/CVD s.p CVA in 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 However, a repeat MRI head done yesterday evening showed a new left Dusty acute infarct. Her neurological signs has been worsening and her NIH scale score is 20 and MENDS score is 10. She has had carotid doppler US- no significant stenosis and ECHO report is pending. We do no have a neurologist in our hospital. I discussed the case with neurologist, Dr Bermudez with [facility] and he accepted the patient, but prefers the hospitalist to admit; hence I discussed with hospitalist, Dr Recinos, who accepted the transfer. She will be transferred to [facility] as soon as possible. Patients' daughter is in agreement with this plan of care. Physical Exam Vital Signs: Temp Pulse Resp BP Pulse Ox 99.4 F 103 H 18 141/65 H 97 03/01/18 08:19 03/01/18 08:19 03/01/18 08:19 03/01/18 08:19 03/01/18 08:19 Intake & Output 02/28/18 03/01/18 03/02/18 06:59 06:59 06:59 Intake Total 1005 472 Output Total 0 Balance 1005 472 Weight 78.6 kg 81.1 kg General appearance: PRESENT: no acute distress, cooperative, well-developed, well-nourished Head exam: PRESENT: atraumatic, normocephalic Eye exam: PRESENT: EOMI, PERRLA Ear exam: PRESENT: normal external ear exam Mouth exam: PRESENT: neck supple, tongue midline Neck exam: PRESENT: full ROM Respiratory exam: PRESENT: clear to auscultation jonathan, symmetrical Pulses: PRESENT: +2 pedal pulses bilateral GI/Abdominal exam: PRESENT: normal bowel sounds, soft Rectal exam: PRESENT: deferred Neurological exam: PRESENT: alert, awake, oriented to person, oriented to place , oriented to time - Right hemiparesis; 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 Psychiatric exam: PRESENT: depressed Results Laboratory Results: 03/01/18 04:56 03/01/18 04:56 03/01/18 03/01/18 04:56 04:56 WBC 8.4 RBC 4.22 Hgb 11.0 L Hct 32.9 L MCV 78 L MCH 26.1 L MCHC 33.5 RDW 14.9 H Plt Count 315 Sodium 138.5 Potassium 3.9 Chloride 103 Carbon Dioxide 24 Anion Gap 12 BUN 13 Creatinine 0.65 Est GFR ( Amer) > 60 Est GFR (Non-Af Amer) > 60 Glucose 87 Calcium 10.1 Phosphorus 4.5 Magnesium 1.7 02/26/18 02/26/18 02/27/18 13:15 19:20 01:27 CK-MB (CK-2) 0.33 0.26 0.31 Troponin I < 0.012 < 0.012 < 0.012 Impressions: Chest X-Ray 02/26/18 07:32 IMPRESSION: No evidence of acute intrathoracic disease. No significant change since the prior study. Head CT 02/27/18 00:00 IMPRESSION: Stable CT appearance of the brain demonstrating chronic and subacute ischemic injuries as detailed above. No acute findings. EVIDENCE OF ACUTE STROKE: NO. Carotid Doppler Study 02/28/18 17:53 IMPRESSION: NO HEMODYNAMICALLY SIGNIFICANT STENOSIS.
[2018-03-01] MEDS ORDERED: DEXTROSE 5%-NORMAL SALINE 1,000 ML IV PRN (13:20)
[2018-03-01] MEDS: ASPIRIN 325 MG TABLET, ENT COATED PO SCH (14:04)
[2018-03-01] MEDS: METOPROLOL TARTRATE 25 MG TABLET PO SCH (14:04)
[2018-03-01] MEDS: FUROSEMIDE 20 MG TABLET PO SCH (14:04)
[2018-03-01] MEDS: AMLODIPINE BESYLATE 10 MG TABLET PO SCH (14:05)
[2018-03-01] MEDS: ENOXAPARIN SODIUM INJ 30 MG/0.3 ML DISP.SYRIN SUBCUT SCH (14:05)
[2018-03-01] MEDS: CETIRIZINE 10 MG TABLET PO SCH (14:05)
[2018-03-01] MEDS: INSULIN LISPRO 100 UNIT/ML 3 ML VIAL SUBCUT PRN (16:41)
[2018-03-01 20:14] VITALS: BP 136/73
== END 2018-03-01 20:15 | disposition short-term general hospital (02) | DRG 65 ==
LOC: ER 06:47 → EH 09:44 → 3N 12:25 → 3W 02-28 04:37
PROVIDERS: ADMIT Internal Medicine; ATTEND Internal Medicine
DX: I63.9 Cerebral infarction, unspecified (principal); I69.354 Hemiplegia and hemiparesis following cerebral infarction affecting left non-dominant side; G81.91 Hemiplegia, unspecified affecting right dominant side; R29.810 Facial weakness; R53.1 Weakness; I10 Essential (primary) hypertension; E78.5 Hyperlipidemia, unspecified; D64.9 Anemia, unspecified; E11.40 Type 2 diabetes mellitus with diabetic neuropathy, unspecified; M54.5 Low back pain; E55.9 Vitamin D deficiency, unspecified; R40.2432 Glasgow coma scale score 3-8, at arrival to emergency department; Z79.84 Long term (current) use of oral hypoglycemic drugs; Z79.4 Long term (current) use of insulin; Z79.891 Long term (current) use of opiate analgesic; Z79.899 Other long term (current) drug therapy
CPT/HCPCS: 36415; 70450; 70551; 71045; 80048; 80053; 80061; 81001; 82550; 82553; 82962; 83036; 83735; 83880; 84100; 84484; 85025; 85027; 85610; 85730; 93005; 93010; 93306; 93880; 99285; G8996-GN; G8997-GN; J0360; J1650; J1815; J3490

== ENCOUNTER 2018-03-16 19:41 | Emergency (ER) | payer MEDICARE ==
--- NOTE | 2018-03-16 20:26 | ER Document Report ---
ED General - General Chief Complaint: General Weakness Stated Complaint: GENERAL WEAKNESS Time Seen by Provider: 03/16/18 19:59 Notes: Patient is a 72-year-old female presenting to the emergency department from [facility] for lethargy. According to family member in room patient was discharged from by dentist yesterday and arrived to [facility] last night. Patient was invited for a CVA. That CVA has left the patient without any movement in the right upper or lower extremity. Family states while at [facility] the patient was on a pured diet. Family states when they arrived to [facility] last evening staff was feeding the patient a fold to no sandwich and chips. Family stated they immediately stopped that and discussed this with the facility. Family states today upon their arrival to visit the patient at [place] they noticed that she is "extra tired." Family also states they think the patient is taking "shallow breaths." Patient has not complained of anything today but the family was concerned because she was sleeping too much which is why they present to the emergency room. Patient does appear to be sleeping upon my arrival into the room, easily arousable with verbal stimulation. In talking to the patient she denies all complaints to include chest pain, shortness of breath, abdominal pain, dysuria. Patient is able to tell you the dates, her name and date of . Family states she usually can tell you faster than she does offer up this information to staff in the ER. [facility] documented vitals of pulse 73, pulse ox 95% on room air, respirations 18, blood pressure 150/78, temperature 98.4F Documentation paperwork sent from [employer] with the patient to the emergency room states patient had a swallow function with fluoroscopy video on 03/02/2018. This showed the patient was unable to masticate and swallow solid consistency. Patient sustained a right-sided CVA on 02/26/2018 she is flaccid in her right upper extremity and right lower extremity. Also with some residual right facial droop. Family at bedside states this is normal since the CVA. Patient is not complaining of a headache Past history: CVA, diabetes, hyperlipidemia, depression, hypertension, osteoarthritis Medications: Aspirin, atorvastatin, famotidine, lisinopril, glargine, lisinopril , oxycodone, carvedilol, amlodipine, meloxicam Allergies: Sulfa TRAVEL OUTSIDE OF THE [place] IN LAST 30 DAYS: No - Related Data Allergies/Adverse Reactions: Sulfa (Sulfonamide Antibiotics) Allergy (Unknown, Verified 02/26/18 07:37) unsure Past Medical History - General Information source: Patient, Relative, Transfer Record - Social History Smoking Status: Never Smoker Lives with: Residential Family History: Reviewed & Not Pertinent - Past Medical History Cardiac Medical History: Reports: Hx Hypercholesterolemia, Hx Hypertension - on meds Endocrine Medical History: Reports: Hx Diabetes Mellitus Type 2 Renal/ Medical History: Reports: Hx Kidney Stones. Denies: Hx Peritoneal Dialysis Musculoskeletal Medical History: Reports Hx Arthritis Past Surgical History: Reports: Hx Section - x 2 - Immunizations Hx Diphtheria, Pertussis, Tetanus Vaccination: Yes Hx Pneumococcal Vaccination: 03/10/14 Review of Systems - Review of Systems Constitutional: See HPI EENT: No symptoms reported Cardiovascular: See HPI Respiratory: See HPI. denies: Cough, Hemoptysis Gastrointestinal: No symptoms reported Genitourinary: No symptoms reported Female Genitourinary: See HPI Musculoskeletal: No symptoms reported Skin: No symptoms reported Hematologic/Lymphatic: No symptoms reported Neurological/Psychological: See HPI Physical Exam - Vital signs Vitals: BP Pulse Ox 134/77 H 95 03/16/18 19:55 03/16/18 19:55 - Notes Notes: GENERAL: Alert, interacts well. No acute distress. Able to sya her name, and current date HEAD: Normocephalic, atraumatic. slight right facial droop, pts baseline since CVA per daughter at bedside EYES: Pupils equal, round, and reactive to light. Extraocular movements intact. ENT: Oral mucosa moist, tongue midline. NECK: Full range of motion. Supple. Trachea midline. LUNGS: Clear to auscultation bilaterally, no wheezes, rales, or rhonchi. No respiratory distress. HEART: Regular rate and rhythm. No murmur ABDOMEN: Soft, non-tender. Non-distended. Bowel sounds present in all 4 quadrants. EXTREMITIES: Moves left extremities spontaneously. No edema, normal radial and dorsalis pedis pulses bilaterally. No cyanosis. Flaccid right upper and lower extremities which is the pts baseline per daughter at bedside. BACK: no cervical, thoracic, lumbar midline tenderness. NEUROLOGICAL: Alert and oriented x3. slightly slurred which is Normal speech per daughter at bedside. cranial nerves II through XII grossly intact. PSYCH: Normal affect, normal mood. SKIN: Warm, dry, normal turgor. No rashes or lesions noted. Course - Re-evaluation Re-evalutation: Discussed the labs, CXR and UA with Dr. Kamaljit Saldivar who recommends CT if family is worried about patient not being at her baseline since yesterday. CT comes back negative. Discussed this with daughter at bedside. Discussed discharge back to nursing facility. Daughter requests for us to give the patient her nightly medications. Discussed at length with the daughter that this is unnecessary because there may be a miscommunication with alf and they may repeat her medications. Discussed patient's going to be discharged and they can give her her night medications at the facility. 03/17/18 00:44 No leukocytosis, no pneumonia seen on chest x-ray no signs of urinary tract infection, urine sent for culture. CT negative. Discussed this at length with patient and daughter at bedside they are okay with discharge back to facility. - Vital Signs Vital signs: Temp Pulse Resp BP Pulse Ox 98.0 F 157/75 H 95 03/17/18 01:31 03/17/18 01:31 03/17/18 01:31 - Laboratory Result Diagrams: 03/16/18 20:18 03/16/18 20:18 Laboratory results interpreted by me: 03/16/18 03/16/18 03/16/18 20:18 20:18 21:35 Hgb 11.5 L Hct 34.1 L MCV 79 L MCH 26.6 L RDW 14.9 H Sodium 145.5 H Est GFR (Non-Af Amer) 55 L Glucose 123 H Calcium 10.4 H Creatine Kinase 21 L Urine Protein 30 H Urine Ketones TRACE H Urine Urobilinogen 4.0 H Ur Leukocyte Esterase SMALL H Urine Ascorbic Acid 40 H Discharge - Discharge Clinical Impression: Lethargy, Feared complaint without diagnosis Condition: Stable Disposition: HOME-SNF (ED ONLY) Additional Instructions: As we discussed when the patient gets home to the nursing facility she should be given her night medications. Your mother's lab results showed no signs of infection at this time. There are also no signs of pneumonia on her mother's chest x-ray. You should return to the emergency room for any other concerning symptoms. Referrals: NAS BAPTISTE MD [Primary Care Provider] - Follow up as needed
[2018-03-16 20:28] LABS: ABSOLUTE BASOPHILS # (AUTO) 0.1 10^3/uL (0.0-0.2); ABSOLUTE LYMPHOCYTES (AUTO) 2.3 10^3/uL (0.5-4.7); ABSOLUTE MONOCYTES (AUTO) 0.7 10^3/uL (0.1-1.4); ABSOLUTE NEUT (AUTO) 4.5 10^3/uL (1.7-8.2); BASOPHILS % (AUTO) 0.9 % (0-2); EOSINOPHILS % (AUTO) 0.5 % (0-6); HEMATOCRIT 34.1 % (36.0-47.0); HEMOGLOBIN 11.5 g/dL (12.0-15.5); LYMPHOCYTES % (AUTO) 30.1 % (13-45); MEAN CORPUSCULAR HEMOGLOBIN 26.6 pg (27.0-33.4); MEAN CORPUSCULAR HGB CONC 33.6 g/dL (32.0-36.0); MEAN CORPUSCULAR VOLUME 79 fl (80-97); MONOCYTES % (AUTO) 9.7 % (3-13); PLATELET COUNT 397 10^3/uL (150-450); RED BLOOD COUNT 4.32 10^6/uL (3.72-5.28); RED CELL DISTRIBUTION WIDTH 14.9 % (11.5-14.0); SEGMENTED NEUTROPHILS % (AUTO) 58.8 % (42-78); TOTAL CELLS COUNTED % (AUTO) 100 %; WHITE BLOOD COUNT 7.6 10^3/uL (4.0-10.5)
[2018-03-16 20:47] LABS: ALANINE AMINOTRANSFERASE 20 U/L (9-52); ALBUMIN 3.7 g/dL (3.5-5.0); ALKALINE PHOSPHATASE 67 U/L (38-126); ANION GAP 15 (5-19); ASPARTATE AMINO TRANSFERASE 20 U/L (14-36); BILIRUBIN,DIRECT 0.1 mg/dL (0.0-0.4); BILIRUBIN,TOTAL 0.5 mg/dL (0.2-1.3); BLOOD UREA NITROGEN 17 mg/dL (7-20); CALCIUM 10.4 mg/dL (8.4-10.2); CARBON DIOXIDE 28 mmol/L (22-30); CHLORIDE 103 mmol/L (98-107); CREATINE KINASE 21 U/L (30-135); GLUCOSE 123 mg/dL (75-110); POTASSIUM 4.5 mmol/L (3.6-5.0); SODIUM 145.5 mmol/L (137-145); TOTAL PROTEIN 7.3 g/dL (6.3-8.2)
--- NOTE | 2018-03-16 20:53 | RADIOLOGY REPORT (SQ) ---
EXAM DESCRIPTION: CHEST SINGLE VIEW COMPLETED DATE/TIME: 03/16/2018 8:27 pm REASON FOR STUDY: weakness COMPARISON: 02/26/2018 EXAM PARAMETERS: NUMBER OF VIEWS: One view. TECHNIQUE: Single frontal radiographic view of the chest acquired. RADIATION DOSE: NA LIMITATIONS: None. FINDINGS: LUNGS AND PLEURA: No opacities, masses or pneumothorax. No pleural effusion. MEDIASTINUM AND HILAR STRUCTURES: No masses. Contour normal. HEART AND VASCULAR STRUCTURES: Heart size is borderline. No pulmonary edema. BONES: No acute findings. HARDWARE: None in the chest. OTHER: No other significant finding. IMPRESSION: Borderline cardiomegaly without pulmonary edema. TECHNICAL DOCUMENTATION: JOB ID: [id number] [employer]- All Rights Reserved Reading location - IP/workstation name: [email or web address]
[2018-03-16 20:59] LABS: CREATINE KINASE MB < 0.22 ng/mL (<4.55); TROPONIN I < 0.012 ng/mL
[2018-03-16 22:29] LABS: APPEARANCE,URINE CLOUDY; BILIRUBIN,URINE NEGATIVE (NEGATIVE); GLUCOSE, URINE NEGATIVE (NEGATIVE); KETONES,URINE TRACE mg/dL (NEGATIVE); LEUKOCYTE ESTERASE,URINE SMALL (NEGATIVE); NITRITE,URINE NEGATIVE (NEGATIVE); PROTEIN,URINE 30 mg/dL (NEGATIVE); URINE SPECIFIC GRAVITY 1.019
[2018-03-16 22:33] LABS: COLOR,URINE YELLOW
[2018-03-16] MEDS ORDERED: NORMAL SALINE 1000 ML 1,000 ML IV ONE (22:37)
--- NOTE | 2018-03-17 00:13 | RADIOLOGY REPORT (SQ) ---
CT HEAD WITHOUT IV CONTRAST HISTORY: Lethargy. COMPARISON: 02/28/2018 TECHNIQUE: CT scan of the brain without IV contrast. This exam was performed according to our departmental dose-optimization program, which includes automated exposure control, adjustment of the mA and/or kV according to patient size and/or use of iterative reconstruction technique. FINDINGS: Diffuse involutional changes are present. Scattered areas of hypoattenuation within the periventricular white matter likely representing chronic microvascular ischemia. Old lacunar infarcts in the right basal ganglia, right cerebellar hemisphere, and left amira. No acute infarction, intracranial hemorrhage, midline shift, or extra-axial fluid collection is identified. No air-fluid levels in the paranasal sinuses. Calvarium is intact. IMPRESSION: No acute intracranial abnormality. Chronic ischemic disease and old lacunar infarcts.
[2018-03-17 01:39] VITALS: BP 157/75
--- NOTE | 2018-03-17 07:32 | EKG REPORT ---
SEVERITY:- ABNORMAL ECG - SINUS RHYTHM RIGHT BUNDLE BRANCH BLOCK : Confirmed by: Lamont Ramirez MD 17-Mar-2018 07:32:03
== END 2018-03-17 02:00 ==
LOC: ER 19:41
DX: R53.83 Other fatigue (principal); I69.351 Hemiplegia and hemiparesis following cerebral infarction affecting right dominant side; I69.392 Facial weakness following cerebral infarction; R47.81 Slurred speech; E11.9 Type 2 diabetes mellitus without complications; I10 Essential (primary) hypertension; M19.90 Unspecified osteoarthritis, unspecified site; E78.5 Hyperlipidemia, unspecified; E78.00 Pure hypercholesterolemia, unspecified; Z79.899 Other long term (current) drug therapy; Z79.82 Long term (current) use of aspirin; Z79.891 Long term (current) use of opiate analgesic; Z79.4 Long term (current) use of insulin; Z88.2 Allergy status to sulfonamides
CPT/HCPCS: 93005; 99285; 96360; 36415; 87086; 82553; 82550; 85025; 80053; 81001; 84484; 71045; 70450; 93010; J7030

== ENCOUNTER 2018-04-25 13:12 | Inpatient (IN) | payer MEDICARE ==
--- NOTE | 2018-04-25 13:25 | ER Document Report ---
ED General - General Chief Complaint: S/S of Possible Stroke Stated Complaint: STROKE LIKE SYMPTOMS Time Seen by Provider: 04/25/18 13:25 Notes: Patient is a 72-year-old female with recent CVA that presents to the emergency department for chief complaint of difficulty speaking and slurred speech. Daughter providing history as the patient is having difficulty speaking at this time. She reports that yesterday around noon the patient was not talking as much as usual, was having difficulty finding words. She did have a recent stroke in February of this year, which resulted in right-sided deficits including right-sided facial droop, and right upper and lower extremity weakness. She states she went through rehab, got some minimal movement back in her right side, but she did not have issues with speaking last time, she had some facial droop on the right, but not difficulty finding words, so these are new symptoms for her. She is currently on aspirin, no history of atrial fibrillation but she does have diabetes mellitus and hypertension. Past Medical History: CVA, diabetes mellitus, hypertension Past Surgical History: Social History: Denies tobacco, alcohol or drug use. Family History: Reviewed and noncontributory for presenting illness Allergies: Reviewed, see documented allergy list. REVIEW OF SYSTEMS: Other than noted above, the 12 point review of systems was reviewed with the patient and were negative, all pertinent findings are included in the HPI. PHYSICAL EXAMINATION: Vital signs reviewed, nursing noted reviewed. GENERAL: Elderly female, in no apparent or acute distress HEAD: Atraumatic, normocephalic. EYES: Eyes appear normal, extraocular movements intact, sclera anicteric, conjunctiva are normal. ENT: nares patent, oropharynx clear without exudates. Moist mucous membranes. Right-sided facial droop noted NECK: Normal range of motion, supple without lymphadenopathy LUNGS: Breath sounds clear to auscultation bilaterally and equal. No wheezes rales or rhonchi. HEART: Regular rate and rhythm without murmurs ABDOMEN: Soft, nontender, normoactive bowel sounds. No rebound, guarding, or rigidity. No masses appreciated. EXTREMITIES: Nontender, muscle atrophy and minimal muscular motor movement on the right upper and lower extremity, patient is able to move fingers minimally, as well as toes on the right, but essentially is paralyzed on the right, patient does have good range of motion and strength on the left. NEUROLOGICAL: Right-sided facial droop, right upper extremity and lower extremity incomplete hemiparesis, patient appears to have a degree of mild receptive, and expressive aphasia on her exam as well, vision appears to be intact., Sensation decreased in the right upper and lower extremities in addition to her hemiparesis. PSYCH: Flat affect SKIN: Warm, Dry, normal turgor, no rashes or lesions noted on exposed skin TRAVEL OUTSIDE OF THE [place] IN LAST 30 DAYS: No - Related Data Allergies/Adverse Reactions: Sulfa (Sulfonamide Antibiotics) Allergy (Unknown, Verified 02/26/18 07:37) unsure Past Medical History - Social History Smoking Status: Never Smoker Family History: Reviewed & Not Pertinent - Past Medical History Cardiac Medical History: Reports: Hx Hypercholesterolemia, Hx Hypertension - on meds Endocrine Medical History: Reports: Hx Diabetes Mellitus Type 2 Renal/ Medical History: Reports: Hx Kidney Stones. Denies: Hx Peritoneal Dialysis Musculoskeletal Medical History: Reports Hx Arthritis Past Surgical History: Reports: Hx Section - x 2 - Immunizations Hx Diphtheria, Pertussis, Tetanus Vaccination: Yes Hx Pneumococcal Vaccination: 03/10/14 Physical Exam - Vital signs Vitals: Pulse Ox 100 04/25/18 13:39 Course - Re-evaluation Re-evalutation: Patient seen and examined vital signs reviewed. Laboratory data and imaging were ordered as appropriate for the patient's presenting symptoms and complaint, with consideration of any critical or life threatening conditions that may be associated with their obtained history and exam as noted above. Patient was treated with IV fluid bolus Results were reviewed when available and demonstrated CT imaging was stable from prior, discussed with radiologist, blood work did demonstrate that the patient appeared to be dehydrated, and hyponatremic, and hypercalcemic, at 12.5 , I discussed this, with the patient's primary care physician Dr. Arnold, who requested that we order pamidronate, and half-normal saline, which was ordered on his behalf. On reevaluation the patient was stable Evaluation was most consistent with aphasia, possible new stroke versus secondary to electrolyte abnormalities, including hypercalcemia and hyponatremia Results were discussed with the patient at this point after careful consideration I feel that that patient should be admitted to the hospital. This was discussed with the patient that it is in the best interest for their care to be admitted for further evaluation and management. Patient agreed with this plan of care. A call was placed to the admitted physician, Dr. Arnold who graciously accepted the patient onto their service. *Note is created using voice recognition software and may contain spelling, syntax or grammatical errors. Laboratory 04/25/18 04/25/18 04/25/18 13:39 13:39 13:39 WBC 8.4 RBC 4.88 Hgb 12.5 Hct 38.5 MCV 79 L MCH 25.6 L MCHC 32.5 RDW 16.5 H Plt Count 282 Seg Neutrophils % 67.4 Lymphocytes % 18.6 Monocytes % 10.3 Eosinophils % 2.9 Basophils % 0.8 Absolute Neutrophils 5.7 Absolute Lymphocytes 1.6 Absolute Monocytes 0.9 Absolute Eosinophils 0.2 Absolute Basophils 0.1 PT 13.8 INR 1.01 APTT 30.3 Sodium 151.5 H Potassium 3.9 Chloride 113 H Carbon Dioxide 28 Anion Gap 11 BUN 25 H Creatinine 0.70 Est GFR ( Amer) > 60 Est GFR (Non-Af Amer) > 60 Glucose 165 H Calcium 12.4 H* Total Bilirubin 0.5 Direct Bilirubin 0.5 H Neonat Total Bilirubin Not Reportable Neonat Direct Bilirubin Not Reportable Neonat Indirect Bili Not Reportable AST 24 ALT 19 Alkaline Phosphatase 96 Creatine Kinase 55 CK-MB (CK-2) Troponin I Total Protein 8.1 Albumin 4.0 04/25/18 13:39 WBC RBC Hgb Hct MCV MCH MCHC RDW Plt Count Seg Neutrophils % Lymphocytes % Monocytes % Eosinophils % Basophils % Absolute Neutrophils Absolute Lymphocytes Absolute Monocytes Absolute Eosinophils Absolute Basophils PT INR APTT Sodium Potassium Chloride Carbon Dioxide Anion Gap BUN Creatinine Est GFR ( Amer) Est GFR (Non-Af Amer) Glucose Calcium Total Bilirubin Direct Bilirubin Neonat Total Bilirubin Neonat Direct Bilirubin Neonat Indirect Bili AST ALT Alkaline Phosphatase Creatine Kinase CK-MB (CK-2) 1.52 Troponin I < 0.012 Total Protein Albumin Head CT 04/25/18 00:00 IMPRESSION: MILD CHRONIC CHANGES OF ATROPHY AND MICROVASCULAR ISCHEMIA. Old lacunar infarcts which appears stable as compared to the previous study. Other findings as noted above EVIDENCE OF ACUTE STROKE: NO. Chest X-Ray 04/25/18 13:16 IMPRESSION: NO ACUTE RADIOGRAPHIC FINDING IN THE CHEST. - Vital Signs Vital signs: Temp Pulse Resp BP Pulse Ox 75 18 162/88 H 100 04/25/18 13:40 04/25/18 13:40 04/25/18 13:40 04/25/18 13:40 - Laboratory Result Diagrams: 04/25/18 13:39 04/25/18 13:39 Laboratory results interpreted by me: 04/25/18 04/25/18 13:39 13:39 MCV 79 L MCH 25.6 L RDW 16.5 H Sodium 151.5 H Chloride 113 H BUN 25 H Glucose 165 H Calcium 12.4 H* Direct Bilirubin 0.5 H - EKG Interpretation by Me Additional EKG results interpreted by me: EKG demonstrates sinus rhythm with right bundle branch block with a ventricular rate of 72 bpm, normal axis, QTC 500 ms, no evidence of acute ischemia on this EKG, this is compared to prior EKG from 03/16/2018, without significant change. Discharge - Discharge Clinical Impression: Aphasia, Hypercalcemia, Hypernatremia CVA (cerebral vascular accident) Qualifiers: CVA mechanism: unspecified Qualified Code(s): I63.9 - Cerebral infarction, unspecified Condition: Stable Disposition: ADMITTED INPATIENT Admitting Provider: [facility] [place] [facility] Admitted: Telemetry
--- NOTE | 2018-04-25 13:47 | RADIOLOGY REPORT (SQ) ---
EXAM DESCRIPTION: CT HEAD WITHOUT COMPLETED DATE/TIME: 04/25/2018 1:24 pm REASON FOR STUDY: s/s stroke COMPARISON: 03/16/2018 TECHNIQUE: Axial images acquired through the brain without intravenous contrast. Images reviewed wi th bone, brain and subdural windows. Additional sagittal and coronal reconstructions were generated. Images stored on PACS. All CT scanners at this facility use dose modulation, iterative reconstruction, and/or weight based d osing when appropriate to reduce radiation dose to as low as reasonably achievable (ALARA). [facility]: Dose Right [facility]: CareDose [facility]: Dose Right [facility]: Teradose 4D [facility]: Smart Cloupia RADIATION DOSE: CT Rad equipment meets quality standard of care and radiation dose reduction techniq ues were employed. CTDIvol: 53.2 mGy. DLP: 1150 mGy-cm. mGy. LIMITATIONS: None. FINDINGS: VENTRICLES: Prominent. CEREBRUM: No masses. No hemorrhage. No midline shift. Areas of low density in the white matter mos t likely due to chronic micro-vascular ischemic change. No evidence for acute infarction. Old lacun ar infarct in the region of the basal ganglia on the right is again identified. CEREBELLUM: No masses. No hemorrhage. No alteration of density. No evidence for acute infarction. The previously described old lacunar infarcts in the region of the right cerebellar hemisphere and l eft amira appears stable. EXTRAAXIAL SPACES: Mild age-related involutional change. No fluid collections. No masses. ORBITS AND GLOBE: No intra- or extraconal masses. Normal contour of globe without masses. CALVARIUM: No fracture. PARANASAL SINUSES: No fluid or mucosal thickening. SOFT TISSUES: No mass or hematoma. OTHER: No other significant finding. IMPRESSION: MILD CHRONIC CHANGES OF ATROPHY AND MICROVASCULAR ISCHEMIA. Old lacunar infarcts which appears stable as compared to the previous study. Other findings as noted above EVIDENCE OF ACUTE STROKE: NO. COMMENT: Pertinent positive or negative findings of the imaging study reported as a CRITICAL EXAM t o ER PROVIDER at13:33 on 04/25/2018. Category of Critical Exam: Stroke alert TECHNICAL DOCUMENTATION: JOB ID: [id number] Quality ID # [id number]: Final reports with documentation of one or more dose reduction techniques (e.g., Au tomated exposure control, adjustment of the mA and/or kV according to patient size, use of iterative reconstruction technique) 2010 [employer]- All Rights Reserved Reading location - IP/workstation name: [email or web address]
[2018-04-25 13:53] LABS: ABSOLUTE BASOPHILS # (AUTO) 0.1 10^3/uL (0.0-0.2); ABSOLUTE EOSINOPHILS # (AUTO) 0.2 10^3/uL (0.0-0.6); ABSOLUTE LYMPHOCYTES (AUTO) 1.6 10^3/uL (0.5-4.7); ABSOLUTE MONOCYTES (AUTO) 0.9 10^3/uL (0.1-1.4); ABSOLUTE NEUT (AUTO) 5.7 10^3/uL (1.7-8.2); BASOPHILS % (AUTO) 0.8 % (0-2); EOSINOPHILS % (AUTO) 2.9 % (0-6); HEMATOCRIT 38.5 % (36.0-47.0); HEMOGLOBIN 12.5 g/dL (12.0-15.5); LYMPHOCYTES % (AUTO) 18.6 % (13-45); MEAN CORPUSCULAR HEMOGLOBIN 25.6 pg (27.0-33.4); MEAN CORPUSCULAR HGB CONC 32.5 g/dL (32.0-36.0); MEAN CORPUSCULAR VOLUME 79 fl (80-97); MONOCYTES % (AUTO) 10.3 % (3-13); PLATELET COUNT 282 10^3/uL (150-450); RED BLOOD COUNT 4.88 10^6/uL (3.72-5.28); RED CELL DISTRIBUTION WIDTH 16.5 % (11.5-14.0); SEGMENTED NEUTROPHILS % (AUTO) 67.4 % (42-78); TOTAL CELLS COUNTED % (AUTO) 100 %; WHITE BLOOD COUNT 8.4 10^3/uL (4.0-10.5)
[2018-04-25 13:56] LABS: INTERNATIONAL RATION (INR) 1.01
[2018-04-25 13:57] LABS: PARTIAL THROMBOPLASTIN TIME 30.3 SEC (23.5-35.8)
--- NOTE | 2018-04-25 13:58 | RADIOLOGY REPORT (SQ) ---
EXAM DESCRIPTION: CHEST SINGLE VIEW COMPLETED DATE/TIME: 04/25/2018 1:49 pm REASON FOR STUDY: stroke s/s COMPARISON: 03/16/2018 EXAM PARAMETERS: NUMBER OF VIEWS: One view. TECHNIQUE: Single frontal radiographic view of the chest acquired. RADIATION DOSE: NA LIMITATIONS: None. FINDINGS: LUNGS AND PLEURA: No opacities, masses or pneumothorax. No pleural effusion. MEDIASTINUM AND HILAR STRUCTURES: No masses. Contour normal. HEART AND VASCULAR STRUCTURES: The configuration of the heart mediastinal structures is unchanged. BONES: No acute findings. HARDWARE: None in the chest. OTHER: No other significant finding. IMPRESSION: NO ACUTE RADIOGRAPHIC FINDING IN THE CHEST. TECHNICAL DOCUMENTATION: JOB ID: [id number] [employer]- All Rights Reserved Reading location - IP/workstation name: [email or web address]
[2018-04-25 13:59] LABS: PROTHROMBIN TIME 13.8 SEC (11.4-15.4)
[2018-04-25 14:11] LABS: ALANINE AMINOTRANSFERASE 19 U/L (9-52); ALKALINE PHOSPHATASE 96 U/L (38-126); ANION GAP 11 (5-19); ASPARTATE AMINO TRANSFERASE 24 U/L (14-36); BILIRUBIN,DIRECT 0.5 mg/dL (0.0-0.4); BILIRUBIN,TOTAL 0.5 mg/dL (0.2-1.3); BLOOD UREA NITROGEN 25 mg/dL (7-20); CARBON DIOXIDE 28 mmol/L (22-30); CHLORIDE 113 mmol/L (98-107); CREATINE KINASE 55 U/L (30-135); GLUCOSE 165 mg/dL (75-110); POTASSIUM 3.9 mmol/L (3.6-5.0); SODIUM 151.5 mmol/L (137-145); TOTAL PROTEIN 8.1 g/dL (6.3-8.2)
[2018-04-25 14:21] LABS: CALCIUM 12.4 mg/dL (8.4-10.2)
[2018-04-25] MEDS ORDERED: NORMAL SALINE 1000 ML 1,000 ML IV ONE (14:24)
[2018-04-25 14:26] LABS: CREATINE KINASE MB 1.52 ng/mL (<4.55)
[2018-04-25 14:28] LABS: TROPONIN I < 0.012 ng/mL
[2018-04-25] MEDS ORDERED: PAMIDRONATE DISODIUM INJ 30 MG/10 ML VIAL IV ONE (14:59)
[2018-04-25] MEDS ORDERED: 1/2 NORMAL SALINE 1,000 ML IV ONE (15:00)
[2018-04-25] MEDS ORDERED: PAMIDRONATE DISODIUM 90 MG in NORMAL SALINE 1000 ML 1,000 ML IV ONE (16:30)
[2018-04-25] MEDS ORDERED: ZOLPIDEM TARTRATE 5 MG TABLET PO PRN (16:34)
[2018-04-25] MEDS ORDERED: 1/2 NORMAL SALINE 1,000 ML IV PRN (16:34)
[2018-04-25] MEDS ORDERED: ACETAMINOPHEN 325 MG TABLET PO PRN (16:34)
--- NOTE | 2018-04-25 17:20 | PDOC H&P ---
History of Present Illness Admission Date/PCP: 04/25/18 15:17 NAS BAPTISTE Patient complains of: Change in mentalstatus- not answering questions and not responsive as usual since yesterday History of Present Illness: FRANCISCO JAVIER GRAVES is a 72 year old female with hx of DM2/HTN/Hyperlipidemia/CVD s.p CVA with right hemiparesis/DM neuropathy/Back pain/OA/Vitamin D def. who was recently discharged home from [facility] for subacute REHAB. She was in her baseline till yesterday when pt was no longer her usual self as per her daughter- no longer answering questions and not being responsive ; she has not been eating and drinking well as well. On account of these changes in her mental status, she was brought in to ER to rule out CVA. There was no worsening of right sided weakness or fever or cough, chest pain, dypsnea. Her sodium was 151.5 and Calcium was 12.4. She was given IV fluids 1/2 normal saline and IV Pamidronate 90 mg IVx1 at ER. Pt was admitted to IMCU or Telemetry floor for mgt. Past Medical History Cardiac Medical History: Reports: Hyperlipidema, Hypertension - on meds Endocrine Medical History: Reports: Diabetes Mellitus Type 2 Musculoskeltal Medical History: Reports: Arthritis Hematology: Reports: Anemia - hx of Denies: Sickle Cell Disease Past Surgical History Past Surgical History: Reports: Section - x 2 Denies: Amputation Social History Smoking Status: Never Smoker Frequency of Alcohol Use: None Hx Recreational Drug Use: No Drugs: None Hx Prescription Drug Abuse: No Family History Family History: Reviewed & Not Pertinent Parental Family History Reviewed: Yes Children Family History Reviewed: Yes Sibling(s) Family History Reviewed.: Yes Medication/Allergy Home Medications: Amlodipine Besylate [Norvasc 10 mg Tablet] 10 mg PO DAILY 02/26/18 Atorvastatin Calcium [Lipitor 40 mg Tablet] 40 mg PO DAILY 02/26/18 Ergocalciferol (Vitamin D2) [Vitamin D2] 50,000 unit PO KIRBY@1000 02/26/18 Furosemide [Lasix 20 mg Tablet] 20 mg PO DAILY 02/26/18 Gabapentin [Neurontin 100 mg Capsule] 100 mg PO Q8 02/26/18 Glimepiride [Amaryl] 2 mg PO BID 02/26/18 Insulin Detemir [Levemir Flextouch] 10 unit SQ QAM 02/26/18 Insulin Detemir [Levemir Flextouch] 35 unit SQ QHS 02/26/18 Meloxicam [Mobic] 7.5 mg PO DAILYP PRN 02/26/18 Metformin HCl [Glucophage] 1,000 mg PO BID 02/26/18 Metoprolol Tartrate [Lopressor 25 mg Tablet] 25 mg PO Q12 02/26/18 Montelukast Sodium [Singulair 10 mg Tablet] 10 mg PO QHS 02/26/18 Potassium Chloride [Klor-Con 10 Meq Capsule ER] 10 meq PO DAILY 02/26/18 Tramadol HCl [Ultram 50 mg Tablet] 50 mg PO BIDP PRN 02/26/18 Allergies/Adverse Reactions: Sulfa (Sulfonamide Antibiotics) Allergy (Unknown, Verified 04/25/18 16:43) unsure Review of Systems Constitutional: PRESENT: as per HPI Eyes: PRESENT: as per HPI Ears: PRESENT: as per HPI Nose, Mouth, and Throat: PRESENT: as per HPI Breasts: PRESENT: as per HPI Cardiovascular: PRESENT: as per HPI Respiratory: PRESENT: as per HPI Gastrointestinal: PRESENT: as per HPI Genitourinary: PRESENT: as per HPI Musculoskeletal: PRESENT: as per HPI - change in mental status Integumentary: PRESENT: as per HPI Neurological: PRESENT: as per HPI Psychiatric: PRESENT: as per HPI Endocrine: PRESENT: as per HPI Hematologic/Lymphatic: PRESENT: as per HPI Physical Exam Vital Signs: Temp Pulse Resp BP Pulse Ox 75 13 126/62 H 91 L 04/25/18 13:40 04/25/18 16:02 04/25/18 16:02 04/25/18 16:02 General appearance: PRESENT: no acute distress, cooperative, well-developed, well-nourished Head exam: PRESENT: atraumatic, normocephalic Eye exam: PRESENT: EOMI, PERRLA Ear exam: PRESENT: normal external ear exam, TM's normal bilaterally Mouth exam: PRESENT: neck supple, tongue midline Respiratory exam: PRESENT: clear to auscultation jonathan, symmetrical Cardiovascular exam: PRESENT: +S1, +S2 Pulses: PRESENT: normal carotid pulses, +2 pedal pulses bilateral GI/Abdominal exam: PRESENT: normal bowel sounds, soft Rectal exam: PRESENT: deferred Neurological exam: PRESENT: alert, awake, oriented to person, oriented to place Additional comments: Right hemiparesis. Psychiatric exam: PRESENT: normal mood Results Impressions: Head CT 04/25/18 00:00 IMPRESSION: MILD CHRONIC CHANGES OF ATROPHY AND MICROVASCULAR ISCHEMIA. Old lacunar infarcts which appears stable as compared to the previous study. Other findings as noted above EVIDENCE OF ACUTE STROKE: NO. Chest X-Ray 04/25/18 13:16 IMPRESSION: NO ACUTE RADIOGRAPHIC FINDING IN THE CHEST. Assessment & Plan - Diagnosis (1) Altered mental status, unspecified Qualifiers: Altered mental status type: unspecified Qualified Code(s): R41.82 - Altered mental status, unspecified Is this a current diagnosis for this admission?: Yes (2) Hypercalcemia Is this a current diagnosis for this admission?: Yes Plan: She was given Pamidronate 90 mg IVx1; Ct with IV fluids 1/2 normal saline at 100 cc/hr; monitor chemistries daily and monitor her mental status closely.AMS is possibly due to hyeprcalcemia and hypernatremia. New or recurrent CVA has been ruled out. Ct with IV fluids and IV pamidronate 90 mg IVx1 has been given at ER. Monitor chemistries and her mental status closely. (3) Hypernatremia Is this a current diagnosis for this admission?: Yes Plan: Ct with IV fluids 1/2 normals malena at 100 cc/hr; monitor chemistries daily. (4) Type 2 diabetes mellitus Qualifiers: Diabetes mellitus chcf insulin use: unspecified terminal supervisor insulin use status Diabetes mellitus complication status: with unspecified complications Qualified Code(s): E11.8 - Type 2 diabetes mellitus with unspecified complications Is this a current diagnosis for this admission?: Yes Plan: Ct with accucheck qac, qhs with slidding scale with humalog insulin as per [facility] protocol;Lantus 25 iu qhs subcut since Levemir is not in our formulary; 1800 calorie ADA diet.F/u HBA1C result. (5) Hypertension Qualifiers: Hypertension type: essential hypertension Qualified Code(s): I10 - Essential (primary) hypertension Is this a current diagnosis for this admission?: Yes Plan: Ct with Amlodipine 10 mg qd po; Lisinopril 20 mg qd po; Coreg 6.25 mg BID po; 2 g sodium diet. (6) Hyperlipidemia Qualifiers: Hyperlipidemia type: unspecified Qualified Code(s): E78.5 - Hyperlipidemia , unspecified Is this a current diagnosis for this admission?: Yes Plan: Ct with Atorvastatin 80 mg qhs po; 200 mg cholesterol diet. (7) CVA (cerebral vascular accident) Qualifiers: CVA mechanism: unspecified Qualified Code(s): I63.9 - Cerebral infarction, unspecified Is this a current diagnosis for this admission?: Yes Plan: Ct with Aspirin 325 mg qd po; cardiac diet; PT/OT consult. (8) Vitamin D deficiency Is this a current diagnosis for this admission?: Yes Plan: Ct with Vitamin D 38689iz weekly po. (9) Lumbago Qualifiers: Chronicity: unspecified Is this a current diagnosis for this admission?: Yes Plan: Ct with Tylenol 650 mg q4h prn po. (10) DVT prophylaxis Is this a current diagnosis for this admission?: Yes Plan: Ct with Lovenox 40 mg qd subcut; SCD. - Time Time Spent: 30 to 50 Minutes Medications reviewed and adjusted accordingly: Yes Anticipated discharge: Home Within: within 72 hours - Inpatient Certification Medical Necessity: Failure to Improve With Outpatient Therapy, Significant Comorbidiites Make Outpatient Treatment Too Risky, Need Close Monitoring Due to Risk of Patient Decompensation, Need For IV Fluids, Need For Continuous Telemetry Monitoring, Risk of Diagnosis Which Will Require Inpatient Eval/Care/ Monitoring
--- NOTE | 2018-04-25 18:50 | EKG REPORT ---
SEVERITY:- ABNORMAL ECG - SINUS RHYTHM RIGHT BUNDLE BRANCH BLOCK LVH BY VOLTAGE INFERIOR INFARCT, AGE INDETERMINATE : Confirmed by: Lamont Ramirez MD 25-Apr-2018 18:49:46
--- NOTE | 2018-04-25 20:44 | RADIOLOGY REPORT (SQ) ---
EXAM DESCRIPTION: MRI HEAD WITHOUT COMPLETED DATE/TIME: 04/25/2018 8:33 pm REASON FOR STUDY: cva COMPARISON: CT dated 04/25/2018. MR dated 02/28/2018. TECHNIQUE: Multiplanar imaging includes non-contrasted T1, T2, FLAIR, and diffusion with ADC map seq uences. Images stored on PACS. LIMITATIONS: None. FINDINGS: ANATOMY: No anomalies. Normal vascular flow voids. Pituitary fossa normal. CSF SPACES: Atrophy induced prominence of ventricles and CSF spaces. CEREBRUM: High signal intensity lesions scattered throughout the white matter on FLAIR imaging with d istribution suggesting micro-vascular ischemic changes. A few old lacunar infarcts. No evidence of hemorrhage, mass, or extraaxial fluid collection. POSTERIOR FOSSA: Old infarct in the left side of the amira. Old right cerebellar infarct. No hemorrha ge. No edema, masses or mass effect. Internal auditory canals, cerebello-pontine angles, mastoids no rmal. DIFFUSION IMAGING: Negative for acute or sub-acute infarction. ORBITS: No masses. Globes normal. PARANASAL SINUSES: No fluid levels. Mucosa normal. OTHER: No other significant finding. IMPRESSION: ATROPHY AND CHRONIC MICRO-VASCULAR ISCHEMIC CHANGES. OLD INFARCTS DESCRIBED. NO ACU TE FINDINGS. EVIDENCE OF ACUTE STROKE: NO. TECHNICAL DOCUMENTATION: JOB ID: [id number] [employer]- All Rights Reserved Reading location - IP/workstation name: [email or web address]
[2018-04-25] MEDS: CARVEDILOL 6.25 MG TABLET PO SCH (21:42)
[2018-04-25] MEDS: INSULIN LISPRO 100 UNIT/ML 3 ML VIAL SUBCUT SCH (21:42)
[2018-04-25] MEDS ORDERED: ATORVASTATIN CALCIUM 40 MG TABLET PO SCH (22:00)
[2018-04-26 00:23] LABS: ANION GAP 7 (5-19); BLOOD UREA NITROGEN 21 mg/dL (7-20); CALCIUM 11.5 mg/dL (8.4-10.2); CARBON DIOXIDE 29 mmol/L (22-30); CHLORIDE 114 mmol/L (98-107); GLUCOSE 91 mg/dL (75-110); SODIUM 149.6 mmol/L (137-145)
[2018-04-26 00:26] LABS: POTASSIUM 2.9 mmol/L (3.6-5.0)
[2018-04-26 00:34] LABS: APPEARANCE,URINE SLIGHTLY-CLOUDY; BILIRUBIN,URINE NEGATIVE (NEGATIVE); COLOR,URINE YELLOW; GLUCOSE, URINE NEGATIVE (NEGATIVE); KETONES,URINE TRACE mg/dL (NEGATIVE); LEUKOCYTE ESTERASE,URINE NEGATIVE (NEGATIVE); NITRITE,URINE NEGATIVE (NEGATIVE); PROTEIN,URINE NEGATIVE (NEGATIVE); URINE SPECIFIC GRAVITY 1.014; UROBILINOGEN,URINE NEGATIVE mg/dL (<2.0)
[2018-04-26] MEDS ORDERED: POTASSI CL 20 MEQ/50 ML RIDER 20 MEQ/50 ML RTUPB IV ONE ×2 (00:51→12:39)
[2018-04-26] MEDS ORDERED: DEXTROSE 50%-WATER 25 GM/50 ML DISP.SYRIN IV ONE (00:56)
[2018-04-26] MEDS ORDERED: POTASSIUM CHLORIDE 20 MEQ/50 ML RTU IV ONE (01:00)
[2018-04-26] MEDS: POTASSI CL 20 MEQ/1/2NS 1L 1000 ML IV PRN ×2 (02:57→17:28)
[2018-04-26] MEDS ORDERED: DEXTROSE 50%-WATER SYRINGE 12.5 GM/25 ML DOSE IV PRN (03:02)
[2018-04-26] MEDS ORDERED: DEXTROSE 40% GEL 15 GM TUBE PO PRN (03:02)
[2018-04-26] MEDS ORDERED: DEXTROSE 50%-WATER SYRINGE 25 GM/50 ML DOSE IV PRN (03:02)
[2018-04-26] MEDS ORDERED: DEXTROSE 40% GEL 15 GM TUBE X 2 PO PRN (03:02)
[2018-04-26] MEDS ORDERED: GLUCAGON,HUMAN RECOMB 1 MG INJ IM PRN (03:02)
[2018-04-26 05:23] LABS: ABSOLUTE BASOPHILS # (AUTO) 0.1 10^3/uL (0.0-0.2); ABSOLUTE EOSINOPHILS # (AUTO) 0.2 10^3/uL (0.0-0.6); ABSOLUTE LYMPHOCYTES (AUTO) 1.4 10^3/uL (0.5-4.7); ABSOLUTE MONOCYTES (AUTO) 0.9 10^3/uL (0.1-1.4); ABSOLUTE NEUT (AUTO) 5.5 10^3/uL (1.7-8.2); BASOPHILS % (AUTO) 0.9 % (0-2); EOSINOPHILS % (AUTO) 2.6 % (0-6); HEMOGLOBIN 11.3 g/dL (12.0-15.5); LYMPHOCYTES % (AUTO) 17.6 % (13-45); MEAN CORPUSCULAR HEMOGLOBIN 25.2 pg (27.0-33.4); MEAN CORPUSCULAR HGB CONC 32.2 g/dL (32.0-36.0); MEAN CORPUSCULAR VOLUME 78 fl (80-97); MONOCYTES % (AUTO) 11.4 % (3-13); PLATELET COUNT 251 10^3/uL (150-450); RED BLOOD COUNT 4.47 10^6/uL (3.72-5.28); SEGMENTED NEUTROPHILS % (AUTO) 67.5 % (42-78); TOTAL CELLS COUNTED % (AUTO) 100 %; WHITE BLOOD COUNT 8.1 10^3/uL (4.0-10.5)
[2018-04-26 05:53] LABS: ALANINE AMINOTRANSFERASE 15 U/L (9-52); ALBUMIN 3.6 g/dL (3.5-5.0); ALKALINE PHOSPHATASE 83 U/L (38-126); ANION GAP 8 (5-19); ASPARTATE AMINO TRANSFERASE 20 U/L (14-36); BILIRUBIN,DIRECT 0.7 mg/dL (0.0-0.4); BILIRUBIN,TOTAL 0.7 mg/dL (0.2-1.3); BLOOD UREA NITROGEN 17 mg/dL (7-20); CALCIUM 11.2 mg/dL (8.4-10.2); CARBON DIOXIDE 30 mmol/L (22-30); CHLORIDE 112 mmol/L (98-107); CHOLESTEROL 110.31 mg/dL (0-200); GLUCOSE 125 mg/dL (75-110); POTASSIUM 3.4 mmol/L (3.6-5.0); TOTAL PROTEIN 7.4 g/dL (6.3-8.2); TRIGLYCERIDES 112 mg/dL (<150)
[2018-04-26 06:04] LABS: DIRECT LDL 60 mg/dL (<100)
[2018-04-26] MEDS: LANSOPRAZOLE 30 MG TAB.RAP.DR PO SCH (06:12)
--- NOTE | 2018-04-26 07:04 | PDOC CONSULTATION ---
Consultation Consult reason:: History of CVA. Sacral decubitus ulcer History of Present Illness Admission Date/PCP: 04/25/18 15:17 NAS BAPTISTE History of Present Illness: FRANCISCO JAVIER GRAVES is a 72 year old female seen in consultation at the request of Dr. Baptiste. This is a patient with a history of a CVA. She has residual hemiparesis and is immobile. Patient has a developing stage III decubitus ulcer on her sacrum. The patient cannot relay any of her medical history due to her history of CVA. All medical history is obtained from the chart and nursing staff. Past Medical History Cardiac Medical History: Reports: Hyperlipidema, Hypertension - on meds Endocrine Medical History: Reports: Diabetes Mellitus Type 2 Musculoskeltal Medical History: Reports: Arthritis Skin Medical History: Reports: Other - Sacral decubitus ulcer Hematology: Reports: Anemia - hx of Denies: Sickle Cell Disease Past Surgical History Past Surgical History: Reports: Section - x 2 Denies: Amputation Social History Smoking Status: Never Smoker Frequency of Alcohol Use: None Hx Recreational Drug Use: No Drugs: None Hx Prescription Drug Abuse: No Family History Family History: Reviewed & Not Pertinent Parental Family History Reviewed: Yes Children Family History Reviewed: Yes Sibling(s) Family History Reviewed.: Yes Medication/Allergy Home Medications: Amlodipine Besylate [Norvasc 10 mg Tablet] 10 mg PO DAILY 02/26/18 Atorvastatin Calcium [Lipitor 40 mg Tablet] 80 mg PO DAILY 02/26/18 Ergocalciferol (Vitamin D2) [Vitamin D2] 50,000 unit PO TH@1000 02/26/18 Insulin Detemir [Levemir Flextouch] 10 unit SQ QAM 02/26/18 Insulin Detemir [Levemir Flextouch] 35 unit SQ QHS 02/26/18 Meloxicam [Mobic] 7.5 mg PO BID 02/26/18 Aspirin [Ecotrin 325 mg EC Tablet] 325 mg PO DAILY 04/25/18 Carvedilol [Coreg 25 mg Tablet] 1 tab PO Q12 04/25/18 Diclofenac Sodium [Voltaren] 1 applic TP BIDP PRN 04/25/18 Famotidine [Acid Controller] 20 mg PO BID 04/25/18 Insulin Lispro [Humalog Insulin 100 Unit/1 ml 3 ml Vial] 0 unit SUBCUT .SLD SCALE 04/25/18 Levocetirizine Dihydrochloride [24Hr Allergy Relief] 5 mg PO QPM 04/25/18 Lisinopril [Zestril] 40 mg PO DAILY 04/25/18 Allergies/Adverse Reactions: Sulfa (Sulfonamide Antibiotics) Allergy (Unknown, Verified 04/25/18 16:43) unsure Review of Systems ROS unobtainable: Due to mental status Physical Exam Vital Signs: Temp Pulse Resp BP Pulse Ox 98.5 F 80 18 158/71 H 97 04/26/18 00:34 04/26/18 04:00 04/26/18 04:00 04/26/18 04:00 04/26/18 04:00 Intake & Output 04/24/18 04/25/18 04/26/18 06:59 06:59 06:59 Intake Total 3362 Output Total 950 Balance 2412 Weight 70.2 kg General appearance: PRESENT: no acute distress Head exam: PRESENT: atraumatic, normocephalic Eye exam: ABSENT: scleral icterus Mouth exam: PRESENT: moist, neck supple Teeth exam: PRESENT: poor dentation Neck exam: ABSENT: meningismus, tenderness, thyromegaly, tracheal deviation Respiratory exam: PRESENT: clear to auscultation jonathan, unlabored. ABSENT: chest wall tenderness, tachypnea Cardiovascular exam: PRESENT: RRR Pulses: PRESENT: normal radial pulses Vascular exam: PRESENT: normal capillary refill. ABSENT: pallor GI/Abdominal exam: PRESENT: soft. ABSENT: distended, rebound, rigid, tenderness Rectal exam: PRESENT: deferred Extremities exam: PRESENT: other - Bruising to the right heel, without obvious pressure necrosis. Neurological exam: PRESENT: altered, aphasic, other - Right hemiparesis Psychiatric exam: ABSENT: agitated Skin exam: PRESENT: other - Stage III sacral decubitus without obvious necrotic tissue or purulence. Bruising to the right heel without active necrosis. Results Laboratory Results: 04/26/18 04:43 04/26/18 04:43 04/25/18 04/26/18 04/26/18 23:59 00:10 04:43 WBC 8.1 RBC 4.47 Hgb 11.3 L Hct 35.0 L MCV 78 L MCH 25.2 L MCHC 32.2 RDW 16.0 H Plt Count 251 Seg Neutrophils % 67.5 Lymphocytes % 17.6 Monocytes % 11.4 Eosinophils % 2.6 Basophils % 0.9 Absolute Neutrophils 5.5 Absolute Lymphocytes 1.4 Absolute Monocytes 0.9 Absolute Eosinophils 0.2 Absolute Basophils 0.1 Sodium 149.6 H Potassium 2.9 L* D Chloride 114 H Carbon Dioxide 29 Anion Gap 7 BUN 21 H Creatinine 0.62 Est GFR ( Amer) > 60 Est GFR (Non-Af Amer) > 60 Glucose 91 Calcium 11.5 H Total Bilirubin AST ALT Alkaline Phosphatase Total Protein Albumin Triglycerides Cholesterol LDL Cholesterol Direct VLDL Cholesterol HDL Cholesterol TSH Urine Color YELLOW Urine Appearance SLIGHTLY-CLOUDY Urine pH 5.0 Ur Specific [place] 1.014 Urine Protein NEGATIVE Urine Glucose (UA) NEGATIVE Urine Ketones TRACE H Urine Blood NEGATIVE Urine Nitrite NEGATIVE Ur Leukocyte Esterase NEGATIVE Urine WBC (Auto) 1 Urine RBC (Auto) 0 04/26/18 04/26/18 04:43 04:43 WBC RBC Hgb Hct MCV MCH MCHC RDW Plt Count Seg Neutrophils % Lymphocytes % Monocytes % Eosinophils % Basophils % Absolute Neutrophils Absolute Lymphocytes Absolute Monocytes Absolute Eosinophils Absolute Basophils Sodium 150.0 H Potassium 3.4 L Chloride 112 H Carbon Dioxide 30 Anion Gap 8 BUN 17 Creatinine 0.65 Est GFR ( Amer) > 60 Est GFR (Non-Af Amer) > 60 Glucose 125 H Calcium 11.2 H Total Bilirubin 0.7 AST 20 ALT 15 Alkaline Phosphatase 83 Total Protein 7.4 Albumin 3.6 Triglycerides 112 Cholesterol 110.31 LDL Cholesterol Direct 60 VLDL Cholesterol 22.0 HDL Cholesterol 32 L TSH 4.00 Urine Color Urine Appearance Urine pH Ur Specific [place] Urine Protein Urine Glucose (UA) Urine Ketones Urine Blood Urine Nitrite Ur Leukocyte Esterase Urine WBC (Auto) Urine RBC (Auto) Impressions: Head CT 04/25/18 00:00 IMPRESSION: MILD CHRONIC CHANGES OF ATROPHY AND MICROVASCULAR ISCHEMIA. Old lacunar infarcts which appears stable as compared to the previous study. Other findings as noted above EVIDENCE OF ACUTE STROKE: NO. Chest X-Ray 04/25/18 13:16 IMPRESSION: NO ACUTE RADIOGRAPHIC FINDING IN THE CHEST. Head MRI 04/25/18 18:47 IMPRESSION: ATROPHY AND CHRONIC MICRO-VASCULAR ISCHEMIC CHANGES. OLD INFARCTS DESCRIBED. NO ACUTE FINDINGS. EVIDENCE OF ACUTE STROKE: NO. Assessment & Plan - Diagnosis (1) Sacral decubitus ulcer, stage III Is this a current diagnosis for this admission?: Yes - Plan Summary Plan Summary: There is a 72-year-old female with a history of CVA. I have been requested to evaluate her sacral decubitus ulcer. The patient has a stage III decubitus without signs of necrosis, infection, or other concerning feature. Continue with Allevyn dressings. Continue with an aggressive turning regimen. Recommend nutritional supplementation. The patient also has bruising on the right heel. There is no active necrosis at this time, however elevation of the heel away from the bed is essential to limit progression. I see no indication for surgical intervention at this time. I will see the patient again on an as- needed basis. Please renotify with any questions or concerns.
[2018-04-26] MEDS ORDERED: INSULIN LISPRO 100 UNIT/ML 3 ML VIAL SUBCUT SCH (08:00)
[2018-04-26] MEDS ORDERED: LISINOPRIL 10 MG TABLET PO SCH (10:00)
[2018-04-26] MEDS ORDERED: INSULIN LISPRO 100 UNIT/ML 3 ML VIAL SUBCUT PRN (10:55)
[2018-04-26] MEDS: ASPIRIN 325 MG TABLET PO SCH (11:14)
[2018-04-26] MEDS: AMLODIPINE BESYLATE 10 MG TABLET PO SCH (11:14)
[2018-04-26] MEDS: DOCUSATE SODIUM 100 MG CAPSULE PO SCH (11:15)
[2018-04-26] MEDS: ENOXAPARIN SODIUM INJ 40 MG/0.4 ML DISP.SYRIN SUBCUT SCH (11:15)
[2018-04-26] MEDS: CARVEDILOL 6.25 MG TABLET PO SCH (11:15)
[2018-04-26] MEDS ORDERED: POTASSI CL 20 MEQ/1/2NS 1L 20 MEQ/1,000 ML RTUINJ IV PRN (12:38)
--- NOTE | 2018-04-26 15:26 | PDOC PROGRESS REPORT ---
Subjective Progress Note for:: 04/26/18 Subjective:: Pt has no new complaints and feels better.She was seen by surgicalist today for the sacral debitus ulcer and we appreciate his input in the mgt of this pt. Her Potassium had improved from 2.9 to 3.4 and sodium decreased to 150. Her calcium had decreased to 11.2. 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 Reason For Visit: AMS DUE TO HYPERNATREMIA/HYPERCALCEMIA Physical Exam Vital Signs: Temp Pulse Resp BP Pulse Ox 98.5 F 80 18 158/71 H 97 04/26/18 07:38 04/26/18 08:00 04/26/18 08:00 04/26/18 08:00 04/26/18 08:00 Intake & Output 04/25/18 04/26/18 04/27/18 06:59 06:59 06:59 Intake Total 3362 1220 Output Total 950 800 Balance 2412 420 Weight 70.2 kg 70.2 kg General appearance: PRESENT: no acute distress, cooperative, well-developed, well-nourished Head exam: PRESENT: atraumatic, normocephalic Eye exam: PRESENT: EOMI, PERRLA Ear exam: PRESENT: normal external ear exam, TM's normal bilaterally Respiratory exam: PRESENT: clear to auscultation jonathan, symmetrical Cardiovascular exam: PRESENT: +S1, +S2 Pulses: PRESENT: +2 pedal pulses bilateral GI/Abdominal exam: PRESENT: soft Rectal exam: PRESENT: deferred Neurological exam: PRESENT: alert, oriented to person, oriented to place Psychiatric exam: PRESENT: normal mood Additional comments: Stage 3 sacral decubitus ulcer, not necrotic and no pus seen. Results Laboratory Results: 04/26/18 04:43 04/26/18 04:43 04/25/18 04/26/18 04/26/18 23:59 00:10 04:43 WBC 8.1 RBC 4.47 Hgb 11.3 L Hct 35.0 L MCV 78 L MCH 25.2 L MCHC 32.2 RDW 16.0 H Plt Count 251 Seg Neutrophils % 67.5 Lymphocytes % 17.6 Monocytes % 11.4 Eosinophils % 2.6 Basophils % 0.9 Absolute Neutrophils 5.5 Absolute Lymphocytes 1.4 Absolute Monocytes 0.9 Absolute Eosinophils 0.2 Absolute Basophils 0.1 Sodium 149.6 H Potassium 2.9 L* D Chloride 114 H Carbon Dioxide 29 Anion Gap 7 BUN 21 H Creatinine 0.62 Est GFR ( Amer) > 60 Est GFR (Non-Af Amer) > 60 Glucose 91 Calcium 11.5 H Total Bilirubin AST ALT Alkaline Phosphatase Total Protein Albumin Triglycerides Cholesterol LDL Cholesterol Direct VLDL Cholesterol HDL Cholesterol TSH Urine Color YELLOW Urine Appearance SLIGHTLY-CLOUDY Urine pH 5.0 Ur Specific [place] 1.014 Urine Protein NEGATIVE Urine Glucose (UA) NEGATIVE Urine Ketones TRACE H Urine Blood NEGATIVE Urine Nitrite NEGATIVE Ur Leukocyte Esterase NEGATIVE Urine WBC (Auto) 1 Urine RBC (Auto) 0 04/26/18 04/26/18 04:43 04:43 WBC RBC Hgb Hct MCV MCH MCHC RDW Plt Count Seg Neutrophils % Lymphocytes % Monocytes % Eosinophils % Basophils % Absolute Neutrophils Absolute Lymphocytes Absolute Monocytes Absolute Eosinophils Absolute Basophils Sodium 150.0 H Potassium 3.4 L Chloride 112 H Carbon Dioxide 30 Anion Gap 8 BUN 17 Creatinine 0.65 Est GFR ( Amer) > 60 Est GFR (Non-Af Amer) > 60 Glucose 125 H Calcium 11.2 H Total Bilirubin 0.7 AST 20 ALT 15 Alkaline Phosphatase 83 Total Protein 7.4 Albumin 3.6 Triglycerides 112 Cholesterol 110.31 LDL Cholesterol Direct 60 VLDL Cholesterol 22.0 HDL Cholesterol 32 L TSH 4.00 Urine Color Urine Appearance Urine pH Ur Specific [place] Urine Protein Urine Glucose (UA) Urine Ketones Urine Blood Urine Nitrite Ur Leukocyte Esterase Urine WBC (Auto) Urine RBC (Auto) Impressions: Head CT 04/25/18 00:00 IMPRESSION: MILD CHRONIC CHANGES OF ATROPHY AND MICROVASCULAR ISCHEMIA. Old lacunar infarcts which appears stable as compared to the previous study. Other findings as noted above EVIDENCE OF ACUTE STROKE: NO. Chest X-Ray 04/25/18 13:16 IMPRESSION: NO ACUTE RADIOGRAPHIC FINDING IN THE CHEST. Head MRI 04/25/18 18:47 IMPRESSION: ATROPHY AND CHRONIC MICRO-VASCULAR ISCHEMIC CHANGES. OLD INFARCTS DESCRIBED. NO ACUTE FINDINGS. EVIDENCE OF ACUTE STROKE: NO. Assessment & Plan - Diagnosis (1) Altered mental status, unspecified Qualifiers: Altered mental status type: unspecified Qualified Code(s): R41.82 - Altered mental status, unspecified Is this a current diagnosis for this admission?: Yes Plan: Ct with IV fluids 1/2 normal saline with 20 MEQ of KCL at 100cc/hr; monitor chemistries daily; monitor mental status. (2) Hypercalcemia Is this a current diagnosis for this admission?: Yes Plan: She was given Pamidronate 90 mg IVx1; Ct with IV fluids 1/2 normal saline plus 20 MEQ of KCL at 100 cc/hr; monitor chemistries daily and monitor her mental status closely.AMS is possibly due to hyeprcalcemia and hypernatremia. New or recurrent CVA has been ruled out. Ct with IV fluids and IV pamidronate 90 mg IVx1 has been given at ER. Monitor chemistries and her mental status closely. (3) Hypernatremia Is this a current diagnosis for this admission?: Yes Plan: Ct with IV fluids 1/2 normal saline plus 20 MEQ of KCL at 100 cc/hr; monitor chemistries daily. 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 (5) Hypertension Qualifiers: Hypertension type: essential hypertension Qualified Code(s): I10 - Essential (primary) hypertension Is this a current diagnosis for this admission?: Yes Plan: Ct with Amlodipine 10 mg qd po; Lisinopril 40 mg qd po; Coreg 12.5 mg BID po; 2 g sodium diet. (6) Hyperlipidemia Qualifiers: Hyperlipidemia type: unspecified Qualified Code(s): E78.5 - Hyperlipidemia , unspecified Is this a current diagnosis for this admission?: Yes Plan: Ct with Atorvastatin 80 mg qhs po; 200 mg cholesterol diet. (7) CVA (cerebral vascular accident) Qualifiers: CVA mechanism: unspecified Qualified Code(s): I63.9 - Cerebral infarction, unspecified Is this a current diagnosis for this admission?: Yes Plan: Ct with Aspirin 325 mg qd po; cardiac diet; PT/OT consult. (8) Vitamin D deficiency Is this a current diagnosis for this admission?: Yes Plan: Ct with Vitamin D [id number] weekly po. (9) Lumbago Qualifiers: Chronicity: unspecified Is this a current diagnosis for this admission?: Yes Plan: Ct with Tylenol 650 mg q4h prn po. (10) Sacral decubitus ulcer, stage III Is this a current diagnosis for this admission?: Yes Plan: Ct with allevyn dressing as specified by surgicalist; turn pt every 2 hours regularly; elevate leg. (11) DVT prophylaxis Is this a current diagnosis for this admission?: Yes Plan: Ct with Lovenox 40 mg qd subcut; SCD.
[2018-04-26] MEDS: ATORVASTATIN CALCIUM 80 MG TABLET PO SCH (22:58)
[2018-04-26] MEDS: CARVEDILOL 12.5 MG TABLET PO SCH (22:58)
[2018-04-26] MEDS: INSULIN LISPRO 100 UNIT/ML 3 ML VIAL SUBCUT SCH (23:26)
[2018-04-27] MEDS: POTASSI CL 20 MEQ/1/2NS 1L 1000 ML IV PRN ×2 (03:30→15:47)
[2018-04-27 06:44] LABS: ABSOLUTE EOSINOPHILS # (AUTO) 0.2 10^3/uL (0.0-0.6); ABSOLUTE LYMPHOCYTES (AUTO) 1.4 10^3/uL (0.5-4.7); ABSOLUTE MONOCYTES (AUTO) 0.8 10^3/uL (0.1-1.4); ABSOLUTE NEUT (AUTO) 4.5 10^3/uL (1.7-8.2); BASOPHILS % (AUTO) 0.6 % (0-2); EOSINOPHILS % (AUTO) 2.9 % (0-6); HEMATOCRIT 34.4 % (36.0-47.0); HEMOGLOBIN 11.1 g/dL (12.0-15.5); LYMPHOCYTES % (AUTO) 20.2 % (13-45); MEAN CORPUSCULAR HEMOGLOBIN 25.3 pg (27.0-33.4); MEAN CORPUSCULAR HGB CONC 32.3 g/dL (32.0-36.0); MEAN CORPUSCULAR VOLUME 78 fl (80-97); MONOCYTES % (AUTO) 11.1 % (3-13); PLATELET COUNT 240 10^3/uL (150-450); RED CELL DISTRIBUTION WIDTH 16.1 % (11.5-14.0); SEGMENTED NEUTROPHILS % (AUTO) 65.2 % (42-78); TOTAL CELLS COUNTED % (AUTO) 100 %
[2018-04-27] MEDS: LANSOPRAZOLE 30 MG TAB.RAP.DR PO SCH (06:47)
[2018-04-27 07:06] LABS: ALANINE AMINOTRANSFERASE 14 U/L (9-52); ALBUMIN 3.5 g/dL (3.5-5.0); ALKALINE PHOSPHATASE 79 U/L (38-126); ANION GAP 10 (5-19); ASPARTATE AMINO TRANSFERASE 21 U/L (14-36); BILIRUBIN,DIRECT 0.4 mg/dL (0.0-0.4); BILIRUBIN,TOTAL 0.6 mg/dL (0.2-1.3); BLOOD UREA NITROGEN 10 mg/dL (7-20); CARBON DIOXIDE 25 mmol/L (22-30); CHLORIDE 106 mmol/L (98-107); GLUCOSE 181 mg/dL (75-110); POTASSIUM 3.7 mmol/L (3.6-5.0); SODIUM 140.9 mmol/L (137-145); TOTAL PROTEIN 7.3 g/dL (6.3-8.2)
[2018-04-27] MEDS: AMLODIPINE BESYLATE 10 MG TABLET PO SCH (11:48)
[2018-04-27] MEDS: DOCUSATE SODIUM 100 MG CAPSULE PO SCH (11:49)
[2018-04-27] MEDS: ASPIRIN 325 MG TABLET PO SCH (11:49)
[2018-04-27] MEDS: ENOXAPARIN SODIUM INJ 40 MG/0.4 ML DISP.SYRIN SUBCUT SCH (11:49)
[2018-04-27] MEDS: LISINOPRIL 10 MG TABLET PO SCH (11:49)
[2018-04-27] MEDS: CARVEDILOL 12.5 MG TABLET PO SCH ×2 (11:51→23:04)
--- NOTE | 2018-04-27 15:52 | PDOC PROGRESS REPORT ---
Subjective Progress Note for:: 04/27/18 Subjective:: She is feeling fine and back to her baseline. Both pt and her daughter do not want SNF placement and prefer to be discharged home. Her Sodium, Calcium and potassium are back to normal. She will be discharged home tomorrow. Reason For Visit: AMS DUE TO HYPERNATREMIA/HYPERCALCEMIA Physical Exam Vital Signs: Temp Pulse Resp BP Pulse Ox 99.3 F 80 18 108/106 H 98 04/27/18 12:00 04/27/18 12:00 04/27/18 12:00 04/27/18 12:00 04/27/18 12:00 Intake & Output 04/26/18 04/27/18 04/28/18 06:59 06:59 06:59 Intake Total 3362 2510 Output Total 950 1675 Balance 2412 835 Weight 70.2 kg 170.2 kg General appearance: PRESENT: no acute distress, well-developed, well-nourished Head exam: PRESENT: atraumatic, normocephalic Eye exam: PRESENT: conjunctiva pink, EOMI, PERRLA. ABSENT: scleral icterus Ear exam: PRESENT: normal external ear exam Mouth exam: PRESENT: moist, tongue midline Neck exam: PRESENT: full ROM. ABSENT: carotid bruit, JVD, lymphadenopathy, thyromegaly Cardiovascular exam: PRESENT: RRR. ABSENT: diastolic murmur, rubs, systolic murmur Pulses: PRESENT: normal dorsalis pedis pul, +2 pedal pulses bilateral Vascular exam: PRESENT: normal capillary refill GI/Abdominal exam: PRESENT: normal bowel sounds, soft. ABSENT: distended, guarding, mass, organolmegaly, rebound, tenderness Rectal exam: PRESENT: deferred Neurological exam: PRESENT: alert, awake, oriented to person, oriented to place, oriented to time, oriented to situation, CN II-XII grossly intact. ABSENT: motor sensory deficit Psychiatric exam: PRESENT: appropriate affect, normal mood. ABSENT: homicidal ideation, suicidal ideation Skin exam: PRESENT: dry, intact, warm. ABSENT: cyanosis, rash Results Laboratory Results: 04/27/18 04:26 04/27/18 04:26 04/27/18 04/27/18 04:26 04:26 WBC 7.0 RBC 4.40 Hgb 11.1 L Hct 34.4 L MCV 78 L MCH 25.3 L MCHC 32.3 RDW 16.1 H Plt Count 240 Seg Neutrophils % 65.2 Lymphocytes % 20.2 Monocytes % 11.1 Eosinophils % 2.9 Basophils % 0.6 Absolute Neutrophils 4.5 Absolute Lymphocytes 1.4 Absolute Monocytes 0.8 Absolute Eosinophils 0.2 Absolute Basophils 0.0 Sodium 140.9 Potassium 3.7 Chloride 106 Carbon Dioxide 25 Anion Gap 10 BUN 10 Creatinine 0.48 L Est GFR ( Amer) > 60 Est GFR (Non-Af Amer) > 60 Glucose 181 H Calcium 10.0 Total Bilirubin 0.6 AST 21 ALT 14 Alkaline Phosphatase 79 Total Protein 7.3 Albumin 3.5 04/25/18 04/25/18 13:39 13:39 Creatine Kinase 55 CK-MB (CK-2) 1.52 Troponin I < 0.012 Impressions: Head CT 04/25/18 00:00 IMPRESSION: MILD CHRONIC CHANGES OF ATROPHY AND MICROVASCULAR ISCHEMIA. Old lacunar infarcts which appears stable as compared to the previous study. Other findings as noted above EVIDENCE OF ACUTE STROKE: NO. Chest X-Ray 04/25/18 13:16 IMPRESSION: NO ACUTE RADIOGRAPHIC FINDING IN THE CHEST. Head MRI 04/25/18 18:47 IMPRESSION: ATROPHY AND CHRONIC MICRO-VASCULAR ISCHEMIC CHANGES. OLD INFARCTS DESCRIBED. NO ACUTE FINDINGS. EVIDENCE OF ACUTE STROKE: NO. Assessment & Plan - Diagnosis (1) Altered mental status, unspecified Qualifiers: Altered mental status type: unspecified Qualified Code(s): R41.82 - Altered mental status, unspecified Is this a current diagnosis for this admission?: Yes Plan: Ct with IV fluids 1/2 normal saline with 20 MEQ of KCL at 100cc/hr; monitor chemistries daily; monitor mental status. (2) Hypercalcemia Is this a current diagnosis for this admission?: Yes Plan: She was given Pamidronate 90 mg IVx1; Ct with IV fluids 1/2 normal saline plus 20 MEQ of KCL at 100 cc/hr; monitor chemistries daily and monitor her mental status closely.AMS is possibly due to hyeprcalcemia and hypernatremia. New or recurrent CVA has been ruled out. Ct with IV fluids and IV pamidronate 90 mg IVx1 has been given at ER. Monitor chemistries and her mental status closely. (3) Hypernatremia Is this a current diagnosis for this admission?: Yes Plan: Ct with IV fluids 1/2 normal saline plus 20 MEQ of KCL at 100 cc/hr; monitor chemistries daily. (4) Hypokalemia Is this a current diagnosis for this admission?: Yes Plan: She had KCL IV 20 MEQ x2 doses; Ct with IV fluids 1/2 normal saline at 100cc/hr; Monitor chemistries daily. 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 (6) Hypertension Qualifiers: Hypertension type: essential hypertension Qualified Code(s): I10 - Essential (primary) hypertension Is this a current diagnosis for this admission?: Yes Plan: Ct with Amlodipine 10 mg qd po; Lisinopril 40 mg qd po; Coreg 12.5 mg BID po; 2 g sodium diet. (7) Hyperlipidemia Qualifiers: Hyperlipidemia type: unspecified Qualified Code(s): E78.5 - Hyperlipidemia, unspecified Is this a current diagnosis for this admission?: Yes Plan: Ct with Atorvastatin 80 mg qhs po; 200 mg cholesterol diet. (8) CVA (cerebral vascular accident) Qualifiers: CVA mechanism: unspecified Qualified Code(s): I63.9 - Cerebral infarction, unspecified Is this a current diagnosis for this admission?: Yes Plan: Ct with Aspirin 325 mg qd po; cardiac diet; PT/OT consult. (9) Vitamin D deficiency Is this a current diagnosis for this admission?: Yes Plan: Ct with Vitamin D [id number] weekly po. (10) Lumbago Qualifiers: Chronicity: unspecified Is this a current diagnosis for this admission?: Yes Plan: Ct with Tylenol 650 mg q4h prn po. (11) Sacral decubitus ulcer, stage III Is this a current diagnosis for this admission?: Yes Plan: Ct with allevyn dressing as specified by surgicalist; turn pt every 2 hours regularly; elevate leg. (12) DVT prophylaxis Is this a current diagnosis for this admission?: Yes Plan: Ct with Lovenox 40 mg qd subcut; SCD.
[2018-04-27] MEDS: INSULIN LISPRO 100 UNIT/ML 3 ML VIAL SUBCUT SCH (22:58)
[2018-04-27] MEDS: ATORVASTATIN CALCIUM 80 MG TABLET PO SCH (23:04)
[2018-04-28 05:33] LABS: ABSOLUTE EOSINOPHILS # (AUTO) 0.1 10^3/uL (0.0-0.6); ABSOLUTE LYMPHOCYTES (AUTO) 1.5 10^3/uL (0.5-4.7); ABSOLUTE MONOCYTES (AUTO) 0.8 10^3/uL (0.1-1.4); ABSOLUTE NEUT (AUTO) 3.6 10^3/uL (1.7-8.2); BASOPHILS % (AUTO) 0.6 % (0-2); EOSINOPHILS % (AUTO) 2.4 % (0-6); HEMATOCRIT 32.4 % (36.0-47.0); HEMOGLOBIN 10.8 g/dL (12.0-15.5); MEAN CORPUSCULAR HEMOGLOBIN 25.4 pg (27.0-33.4); MEAN CORPUSCULAR HGB CONC 33.3 g/dL (32.0-36.0); MEAN CORPUSCULAR VOLUME 76 fl (80-97); PLATELET COUNT 221 10^3/uL (150-450); RED BLOOD COUNT 4.24 10^6/uL (3.72-5.28); RED CELL DISTRIBUTION WIDTH 15.9 % (11.5-14.0); TOTAL CELLS COUNTED % (AUTO) 100 %; WHITE BLOOD COUNT 6.1 10^3/uL (4.0-10.5)
[2018-04-28 05:52] LABS: ALANINE AMINOTRANSFERASE 10 U/L (9-52); ALBUMIN 3.2 g/dL (3.5-5.0); ALKALINE PHOSPHATASE 75 U/L (38-126); ANION GAP 10 (5-19); ASPARTATE AMINO TRANSFERASE 18 U/L (14-36); BILIRUBIN,DIRECT 0.4 mg/dL (0.0-0.4); BILIRUBIN,TOTAL 0.6 mg/dL (0.2-1.3); BLOOD UREA NITROGEN 8 mg/dL (7-20); CALCIUM 9.3 mg/dL (8.4-10.2); CARBON DIOXIDE 24 mmol/L (22-30); CHLORIDE 102 mmol/L (98-107); GLUCOSE 169 mg/dL (75-110); POTASSIUM 3.6 mmol/L (3.6-5.0); SODIUM 135.5 mmol/L (137-145); TOTAL PROTEIN 6.4 g/dL (6.3-8.2)
[2018-04-28] MEDS: LANSOPRAZOLE 30 MG TAB.RAP.DR PO SCH (06:48)
[2018-04-28] MEDS: ENOXAPARIN SODIUM INJ 40 MG/0.4 ML DISP.SYRIN SUBCUT SCH (10:39)
[2018-04-28] MEDS: AMLODIPINE BESYLATE 10 MG TABLET PO SCH (10:39)
[2018-04-28] MEDS: LISINOPRIL 10 MG TABLET PO SCH (10:39)
[2018-04-28] MEDS: ASPIRIN 325 MG TABLET PO SCH (10:39)
[2018-04-28] MEDS: CARVEDILOL 12.5 MG TABLET PO SCH ×2 (10:39→22:41)
[2018-04-28] MEDS: DOCUSATE SODIUM 100 MG CAPSULE PO SCH (10:40)
[2018-04-28] MEDS: POTASSI CL 20 MEQ/1/2NS 1L 1000 ML IV PRN (12:35)
[2018-04-28] MEDS: POTASSI CL 20 MEQ/NS 1L 1,000 ML IV PRN (15:16)
--- NOTE | 2018-04-28 16:31 | PDOC PROGRESS REPORT ---
Subjective Progress Note for:: 04/28/18 Subjective:: Pt has no complaints and her daughter requested that pt be transferred to SNF. The enterprise resource planner has sent in papers to [place] and we are awaiting for approval. She will likely be transferred to [facility] possibly tomorrow. Reason For Visit: AMS DUE TO HYPERNATREMIA/HYPERCALCEMIA Physical Exam Vital Signs: Temp Pulse Resp BP Pulse Ox 99.5 F 78 16 151/74 H 99 04/28/18 11:30 04/28/18 14:00 04/28/18 11:30 04/28/18 11:30 04/28/18 11:30 Intake & Output 04/27/18 04/28/18 04/29/18 06:59 06:59 06:59 Intake Total 2510 2000 1250 Output Total 1675 900 650 Balance 835 1100 600 Weight 170.2 kg 67.2 kg General appearance: PRESENT: no acute distress, cooperative, well-developed, well-nourished Head exam: PRESENT: atraumatic, normocephalic Eye exam: PRESENT: EOMI, PERRLA Ear exam: PRESENT: TM's normal bilaterally Mouth exam: PRESENT: neck supple, tongue midline Respiratory exam: PRESENT: clear to auscultation jonathan, symmetrical Cardiovascular exam: PRESENT: +S1, +S2 Pulses: PRESENT: +2 pedal pulses bilateral GI/Abdominal exam: PRESENT: normal bowel sounds, soft Rectal exam: PRESENT: deferred Neurological exam: PRESENT: alert, awake, oriented to person, oriented to place Psychiatric exam: PRESENT: normal mood Results Laboratory Results: 04/28/18 04:29 04/28/18 04:29 04/28/18 04/28/18 04:29 04:29 WBC 6.1 RBC 4.24 Hgb 10.8 L Hct 32.4 L MCV 76 L MCH 25.4 L MCHC 33.3 RDW 15.9 H Plt Count 221 Seg Neutrophils % 59.0 Lymphocytes % 25.0 Monocytes % 13.0 Eosinophils % 2.4 Basophils % 0.6 Absolute Neutrophils 3.6 Absolute Lymphocytes 1.5 Absolute Monocytes 0.8 Absolute Eosinophils 0.1 Absolute Basophils 0.0 Sodium 135.5 L Potassium 3.6 Chloride 102 Carbon Dioxide 24 Anion Gap 10 BUN 8 Creatinine 0.50 L Est GFR ( Amer) > 60 Est GFR (Non-Af Amer) > 60 Glucose 169 H Calcium 9.3 Total Bilirubin 0.6 AST 18 ALT 10 Alkaline Phosphatase 75 Total Protein 6.4 Albumin 3.2 L 04/25/18 04/25/18 13:39 13:39 Creatine Kinase 55 CK-MB (CK-2) 1.52 Troponin I < 0.012 Impressions: Head CT 04/25/18 00:00 IMPRESSION: MILD CHRONIC CHANGES OF ATROPHY AND MICROVASCULAR ISCHEMIA. Old lacunar infarcts which appears stable as compared to the previous study. Other findings as noted above EVIDENCE OF ACUTE STROKE: NO. Chest X-Ray 04/25/18 13:16 IMPRESSION: NO ACUTE RADIOGRAPHIC FINDING IN THE CHEST. Head MRI 04/25/18 18:47 IMPRESSION: ATROPHY AND CHRONIC MICRO-VASCULAR ISCHEMIC CHANGES. OLD INFARCTS DESCRIBED. NO ACUTE FINDINGS. EVIDENCE OF ACUTE STROKE: NO. Assessment & Plan - Diagnosis (1) Altered mental status, unspecified Qualifiers: Altered mental status type: unspecified Qualified Code(s): R41.82 - Altered mental status, unspecified Is this a current diagnosis for this admission?: Yes Plan: Ct with IV fluids normal saline with 20 MEQ of KCL at 100cc/hr; monitor chemistries daily; monitor mental status. (2) Hypercalcemia Is this a current diagnosis for this admission?: Yes Plan: She was given Pamidronate 90 mg IVx1; Ct with IV fluids normal saline plus 20 MEQ of KCL at 100 cc/hr; monitor chemistries daily and monitor her mental status closely.AMS is possibly due to hyeprcalcemia and hypernatremia. New or recurrent CVA has been ruled out. Ct with IV fluids and IV pamidronate 90 mg IVx1 has been given at ER. Monitor chemistries and her mental status closely. (3) Hypernatremia Is this a current diagnosis for this admission?: Yes Plan: Ct with IV fluids normal saline plus 20 MEQ of KCL at 100 cc/hr; monitor chemistries daily. (4) Hypokalemia Is this a current diagnosis for this admission?: Yes Plan: She had KCL IV 20 MEQ x2 doses; Ct with IV fluids normal saline at 100cc/hr; Monitor chemistries daily. (5) Type 2 diabetes mellitus Qualifiers: Diabetes mellitus terminal supervisor insulin use: unspecified senior care insulin use status Diabetes mellitus complication status: with unspecified complications Qualified Code(s): E11.8 - Type 2 diabetes mellitus with unspecified complications Is this a current diagnosis for this admission?: Yes Plan: Ct with accucheck qac, qhs with slidding scale with humalog insulin as per [facility] protocol;Lantus 15 iu qhs subcut since Levemir is not in our formulary; 1800 calorie ADA diet. (6) Hypertension Qualifiers: Hypertension type: essential hypertension Qualified Code(s): I10 - Essential (primary) hypertension Is this a current diagnosis for this admission?: Yes Plan: Ct with Amlodipine 10 mg qd po; Lisinopril 40 mg qd po; Coreg 12.5 mg BID po; 2 g sodium diet. (7) Hyperlipidemia Qualifiers: Hyperlipidemia type: unspecified Qualified Code(s): E78.5 - Hyperlipidemia, unspecified Is this a current diagnosis for this admission?: Yes Plan: Ct with Atorvastatin 80 mg qhs po; 200 mg cholesterol diet. (8) CVA (cerebral vascular accident) Qualifiers: CVA mechanism: unspecified Qualified Code(s): I63.9 - Cerebral infarction, unspecified Is this a current diagnosis for this admission?: Yes Plan: Ct with Aspirin 325 mg qd po; cardiac diet; PT/OT consult. (9) Vitamin D deficiency Is this a current diagnosis for this admission?: Yes Plan: Ct with Vitamin D [id number] weekly po. (10) Lumbago Qualifiers: Chronicity: unspecified Is this a current diagnosis for this admission?: Yes Plan: Ct with Tylenol 650 mg q4h prn po. (11) Sacral decubitus ulcer, stage III Is this a current diagnosis for this admission?: Yes Plan: Ct with allevyn dressing as specified by surgicalist; turn pt every 2 hours regularly; elevate leg. (12) DVT prophylaxis Is this a current diagnosis for this admission?: Yes Plan: Ct with Lovenox 40 mg qd subcut; SCD.
[2018-04-28] MEDS: INSULIN LISPRO 100 UNIT/ML 3 ML VIAL SUBCUT SCH (22:42)
[2018-04-28] MEDS: ATORVASTATIN CALCIUM 80 MG TABLET PO SCH (22:42)
[2018-04-29] MEDS: POTASSI CL 20 MEQ/NS 1L 1,000 ML IV PRN (03:58)
[2018-04-29 05:03] LABS: ABSOLUTE EOSINOPHILS # (AUTO) 0.1 10^3/uL (0.0-0.6); ABSOLUTE LYMPHOCYTES (AUTO) 1.1 10^3/uL (0.5-4.7); ABSOLUTE MONOCYTES (AUTO) 0.7 10^3/uL (0.1-1.4); ABSOLUTE NEUT (AUTO) 3.8 10^3/uL (1.7-8.2); BASOPHILS % (AUTO) 0.7 % (0-2); EOSINOPHILS % (AUTO) 2.2 % (0-6); HEMATOCRIT 33.3 % (36.0-47.0); HEMOGLOBIN 11.2 g/dL (12.0-15.5); LYMPHOCYTES % (AUTO) 18.8 % (13-45); MEAN CORPUSCULAR HEMOGLOBIN 25.8 pg (27.0-33.4); MEAN CORPUSCULAR HGB CONC 33.7 g/dL (32.0-36.0); MEAN CORPUSCULAR VOLUME 77 fl (80-97); MONOCYTES % (AUTO) 12.8 % (3-13); PLATELET COUNT 226 10^3/uL (150-450); RED BLOOD COUNT 4.35 10^6/uL (3.72-5.28); RED CELL DISTRIBUTION WIDTH 15.9 % (11.5-14.0); SEGMENTED NEUTROPHILS % (AUTO) 65.5 % (42-78); TOTAL CELLS COUNTED % (AUTO) 100 %; WHITE BLOOD COUNT 5.8 10^3/uL (4.0-10.5)
[2018-04-29 05:26] LABS: ALANINE AMINOTRANSFERASE 19 U/L (9-52); ALBUMIN 3.2 g/dL (3.5-5.0); ALKALINE PHOSPHATASE 73 U/L (38-126); ANION GAP 10 (5-19); ASPARTATE AMINO TRANSFERASE 22 U/L (14-36); BILIRUBIN,DIRECT 0.5 mg/dL (0.0-0.4); BILIRUBIN,TOTAL 0.6 mg/dL (0.2-1.3); BLOOD UREA NITROGEN 6 mg/dL (7-20); CALCIUM 8.9 mg/dL (8.4-10.2); CARBON DIOXIDE 23 mmol/L (22-30); CHLORIDE 106 mmol/L (98-107); GLUCOSE 156 mg/dL (75-110); POTASSIUM 3.5 mmol/L (3.6-5.0); TOTAL PROTEIN 6.5 g/dL (6.3-8.2)
[2018-04-29] MEDS: LANSOPRAZOLE 30 MG TAB.RAP.DR PO SCH (05:47)
[2018-04-29] MEDS: DOCUSATE SODIUM 100 MG CAPSULE PO SCH (10:18)
[2018-04-29] MEDS: ASPIRIN 325 MG TABLET PO SCH (10:24)
[2018-04-29] MEDS: LISINOPRIL 10 MG TABLET PO SCH (10:24)
[2018-04-29] MEDS: ENOXAPARIN SODIUM INJ 40 MG/0.4 ML DISP.SYRIN SUBCUT SCH (10:25)
[2018-04-29] MEDS: AMLODIPINE BESYLATE 10 MG TABLET PO SCH (10:25)
[2018-04-29] MEDS: CARVEDILOL 12.5 MG TABLET PO SCH (10:25)
[2018-04-29] MEDS ORDERED: POTASSIUM CHLORIDE 20 MEQ/15 ML UDCUP PO ONE (11:00)
--- NOTE | 2018-04-29 12:38 | PDOC DISCHARGE SUMMARY ---
General - Admit/Disc Date/PCP Admission Date/Primary Care Provider: 04/25/18 15:17 NAS BAPTISTE Discharge Date: 04/29/18 - Discharge Diagnosis (1) Altered mental status, unspecified Is this a current diagnosis for this admission?: Yes (2) Hypercalcemia Is this a current diagnosis for this admission?: Yes (3) Hypernatremia Is this a current diagnosis for this admission?: Yes (4) Hypokalemia Is this a current diagnosis for this admission?: Yes (5) Type 2 diabetes mellitus Is this a current diagnosis for this admission?: Yes (6) Hypertension Is this a current diagnosis for this admission?: Yes (7) Hyperlipidemia Is this a current diagnosis for this admission?: Yes (8) CVA (cerebral vascular accident) Is this a current diagnosis for this admission?: Yes (9) Vitamin D deficiency Is this a current diagnosis for this admission?: Yes (10) Lumbago Is this a current diagnosis for this admission?: Yes (11) Sacral decubitus ulcer, stage III Is this a current diagnosis for this admission?: Yes (12) DVT prophylaxis Is this a current diagnosis for this admission?: Yes - Additional Information Discharge Activity: Activity As Tolerated Prescriptions: Insulin Detemir [Levemir Insulin 300 Units/3 ml Insuln.pen] 15 unit SUBCUT QHS #10 ml Home Medications: Amlodipine Besylate [Norvasc 10 mg Tablet] 10 mg PO DAILY 02/26/18 Atorvastatin Calcium [Lipitor 40 mg Tablet] 80 mg PO DAILY 02/26/18 Ergocalciferol (Vitamin D2) [Vitamin D2] 50,000 unit PO TH@1000 02/26/18 Meloxicam [Mobic] 7.5 mg PO BID 02/26/18 Aspirin [Ecotrin 325 mg EC Tablet] 325 mg PO DAILY 04/25/18 Carvedilol [Coreg 25 mg Tablet] 1 tab PO Q12 04/25/18 Diclofenac Sodium [Voltaren] 1 applic TP BIDP PRN 04/25/18 Famotidine [Acid Controller] 20 mg PO BID 04/25/18 Insulin Lispro [Humalog Insulin (Lispro) 100 unit/mL] 0 unit SUBCUT .SLD SCALE 04/25/18 Levocetirizine Dihydrochloride [24Hr Allergy Relief] 5 mg PO QPM 04/25/18 Lisinopril [Zestril] 40 mg PO DAILY 04/25/18 Insulin Detemir [Levemir Insulin 300 Units/3 ml Insuln.pen] 15 unit SUBCUT QHS #10 ml 04/29/18 History of Present Illness History of Present Illness: FRANCISCO JAVIER GRAVES is a 72 year old female with hx of DM2/HTN/Hyperlipidemia/CVD s.p CVA with right hemiparesis/DM neuropathy/Back pain/OA/Vitamin D def. who was recently discharged home from [facility] for subacute REHAB. She was in her baseline till yesterday when pt was no longer her usual self as per her d aughter- no longer answering questions and not being responsive ; she has not been eating and drinking well as well. On account of these changes in her mental status, she was brought in to ER to rule out CVA. There was no worsening of right sided weakness or fever or cough, chest pain, dypsnea. Her sodium was 151.5 and Calcium was 12.4. She was given IV fluids 1/2 normal saline and IV Pamidronate 90 mg IVx1 at ER. Pt was admitted to IMCU or Telemetry floor for mgt. Hospital Course Hospital Course: 72 year old woman who was admitted to IMCU for AMS secondary to hypernatremia/hypercalcemia. She had IV Pamidronate 90 mg IVx1 at ED and was started on IV fluids. She later developed hypokalemia which was replaced. She in addition had KCL 20 MEQ(liquid form) pox1 this am since her potassium was 3.5.She had CT head and MRI head that did not show any acute intracranial abnormality. She was evaluated by neighborhood planner for SNF placement, but her insurance declined and insisted on copay of 20%, which the pt and her family could not afford, hence they opted to be discharged home and to restart her home health services. Pt and her family including the daughter, Ms Fong are in agreement with this plan of care. Pt will be brought to the office within 1 week for transition of care. Physical Exam Vital Signs: Temp Pulse Resp BP Pulse Ox 99.2 F 83 16 174/77 H 98 04/29/18 07:35 04/29/18 07:35 04/29/18 07:35 04/29/18 07:35 04/29/18 07:35 Intake & Output 04/28/18 04/29/18 04/30/18 06:59 06:59 06:59 Intake Total 19990 Output Total 900 2525 Balance 1100 -275 Weight 67.2 kg 66.3 kg General appearance: PRESENT: no acute distress, cooperative, well-developed, well-nourished Head exam: PRESENT: normocephalic Eye exam: PRESENT: EOMI, PERRLA Ear exam: PRESENT: normal external ear exam Mouth exam: PRESENT: neck supple, tongue midline Respiratory exam: PRESENT: clear to auscultation jonathan, symmetrical Cardiovascular exam: PRESENT: +S1, +S2 Pulses: PRESENT: +2 pedal pulses bilateral GI/Abdominal exam: PRESENT: normal bowel sounds, soft Rectal exam: PRESENT: deferred Neurological exam: PRESENT: alert, awake, oriented to person, oriented to place Psychiatric exam: PRESENT: normal mood Results Laboratory Results: 04/29/18 04:11 04/29/18 04:11 04/29/18 04/29/18 04:11 04:11 WBC 5.8 RBC 4.35 Hgb 11.2 L Hct 33.3 L MCV 77 L MCH 25.8 L MCHC 33.7 RDW 15.9 H Plt Count 226 Seg Neutrophils % 65.5 Lymphocytes % 18.8 Monocytes % 12.8 Eosinophils % 2.2 Basophils % 0.7 Absolute Neutrophils 3.8 Absolute Lymphocytes 1.1 Absolute Monocytes 0.7 Absolute Eosinophils 0.1 Absolute Basophils 0.0 Sodium 139.0 Potassium 3.5 L Chloride 106 Carbon Dioxide 23 Anion Gap 10 BUN 6 L Creatinine 0.46 L Est GFR ( Amer) > 60 Est GFR (Non-Af Amer) > 60 Glucose 156 H Calcium 8.9 Total Bilirubin 0.6 AST 22 ALT 19 Alkaline Phosphatase 73 Total Protein 6.5 Albumin 3.2 L 04/25/18 04/25/18 13:39 13:39 Creatine Kinase 55 CK-MB (CK-2) 1.52 Troponin I < 0.012 Impressions: Head CT 04/25/18 00:00 IMPRESSION: MILD CHRONIC CHANGES OF ATROPHY AND MICROVASCULAR ISCHEMIA. Old lacunar infarcts which appears stable as compared to the previous study. Other findings as noted above EVIDENCE OF ACUTE STROKE: NO. Chest X-Ray 04/25/18 13:16 IMPRESSION: NO ACUTE RADIOGRAPHIC FINDING IN THE CHEST. Head MRI 04/25/18 18:47 IMPRESSION: ATROPHY AND CHRONIC MICRO-VASCULAR ISCHEMIC CHANGES. OLD INFARCTS DESCRIBED. NO ACUTE FINDINGS. EVIDENCE OF ACUTE STROKE: NO. Qualifiers - * PATIENT BEING DISCHARGED WITH ANY OF THE FOLLOWING DIAGNOSIS: No
[2018-04-29 13:09] VITALS: BP 156/70
[2018-05-01] MEDS ORDERED: ERGOCALCIFEROL (VITAMIN D2) 50000 UNIT (1.25 MG) CAPSULE PO SCH (10:00)
== END 2018-04-29 14:37 | disposition home health service (06) | DRG 640 ==
LOC: ER 13:12 → EH 15:17 → 3N 22:45
PROVIDERS: ADMIT Internal Medicine; ATTEND Internal Medicine
DX: E83.52 Hypercalcemia (principal); G93.41 Metabolic encephalopathy; L89.153 Pressure ulcer of sacral region, stage 3; E87.0 Hyperosmolality and hypernatremia; I69.351 Hemiplegia and hemiparesis following cerebral infarction affecting right dominant side; R47.01 Aphasia; E87.6 Hypokalemia; I69.392 Facial weakness following cerebral infarction; I10 Essential (primary) hypertension; M54.5 Low back pain; E78.5 Hyperlipidemia, unspecified; E11.40 Type 2 diabetes mellitus with diabetic neuropathy, unspecified; L89.611 Pressure ulcer of right heel, stage 1; M19.90 Unspecified osteoarthritis, unspecified site; Z79.899 Other long term (current) drug therapy; Z79.4 Long term (current) use of insulin; Z88.2 Allergy status to sulfonamides
CPT/HCPCS: 36415; 70450; 70551; 71045; 80048; 80053; 80061; 81001; 82550; 82553; 82962; 83036; 84443; 84484; 85025; 85610; 85730; 87086; 93005; 93010; 96360; 99285; J1650; J1815; J2430; J3480; J3490; J7030

== ENCOUNTER 2018-05-30 16:25 | Inpatient (IN) | payer MEDICARE ==
[2018-05-30 18:23] LABS: ABSOLUTE BASOPHILS # (AUTO) 0.1 10^3/uL (0.0-0.2); ABSOLUTE LYMPHOCYTES (AUTO) 1.3 10^3/uL (0.5-4.7); ABSOLUTE MONOCYTES (AUTO) 1.5 10^3/uL (0.1-1.4); ABSOLUTE NEUT (AUTO) 14.5 10^3/uL (1.7-8.2); BASOPHILS % (AUTO) 0.4 % (0-2); HEMATOCRIT 33.4 % (36.0-47.0); HEMOGLOBIN 10.6 g/dL (12.0-15.5); LYMPHOCYTES % (AUTO) 7.7 % (13-45); MEAN CORPUSCULAR HEMOGLOBIN 25.5 pg (27.0-33.4); MEAN CORPUSCULAR HGB CONC 31.7 g/dL (32.0-36.0); MEAN CORPUSCULAR VOLUME 81 fl (80-97); MONOCYTES % (AUTO) 8.7 % (3-13); PLATELET COUNT 323 10^3/uL (150-450); RED BLOOD COUNT 4.15 10^6/uL (3.72-5.28); RED CELL DISTRIBUTION WIDTH 17.1 % (11.5-14.0); SEGMENTED NEUTROPHILS % (AUTO) 83.2 % (42-78); TOTAL CELLS COUNTED % (AUTO) 100 %; WHITE BLOOD COUNT 17.4 10^3/uL (4.0-10.5)
[2018-05-30 18:37] LABS: ALANINE AMINOTRANSFERASE 27 U/L (9-52); ALBUMIN 3.4 g/dL (3.5-5.0); ALKALINE PHOSPHATASE 74 U/L (38-126); ASPARTATE AMINO TRANSFERASE 25 U/L (14-36); BILIRUBIN,DIRECT 0.7 mg/dL (0.0-0.4); BILIRUBIN,TOTAL 0.8 mg/dL (0.2-1.3); BLOOD UREA NITROGEN 99 mg/dL (7-20); CALCIUM 9.6 mg/dL (8.4-10.2); CARBON DIOXIDE 15 mmol/L (22-30); CHLORIDE 110 mmol/L (98-107); GLUCOSE 397 mg/dL (75-110); TOTAL PROTEIN 6.8 g/dL (6.3-8.2)
[2018-05-30 18:43] LABS: SODIUM 148.1 mmol/L (137-145)
[2018-05-30 18:48] LABS: ANION GAP 23 (5-19)
--- NOTE | 2018-05-30 19:44 | ER Document Report ---
ED General - General Chief Complaint: Weakness Stated Complaint: WEAKNESS Time Seen by Provider: 05/30/18 18:23 Cannot obtain history due to: Mentally challenged, Unstable vital signs Notes: Patient is a 72-year-old female with a past medical history of right-sided hemiparesis, aphasia, nonverbal at baseline who presents with family concern of progressive decline particular over the last 1 week. Family reports that she has not ate or drink hardly anything in 5 days. They state that she is currently under home hospice care but that they wanted her to be reevaluated for the possibility of any alternative options that could be undertaken to improve her quality of life and/or extend her life. History is limited otherwise as patient is nonverbal, unable to participate in history taking. TRAVEL OUTSIDE OF THE [place] IN LAST 30 DAYS: No - Related Data Allergies/Adverse Reactions: Sulfa (Sulfonamide Antibiotics) Allergy (Unknown, Verified 04/25/18 16:43) unsure Past Medical History - General Information source: Patient Cannot obtain history due to: Unstable vital signs, Altered mental status - Social History Smoking Status: Former Smoker Chew tobacco use (# tins/day): No Frequency of alcohol use: None Drug Abuse: None Lives with: Family Family History: Reviewed & Not Pertinent Patient has suicidal ideation: No Patient has homicidal ideation: No - Past Medical History Cardiac Medical History: Reports: Hx Hypercholesterolemia, Hx Hypertension - on meds Endocrine Medical History: Reports: Hx Diabetes Mellitus Type 2 Renal/ Medical History: Reports: Hx Kidney Stones. Denies: Hx Peritoneal Dialysis Musculoskeletal Medical History: Reports Hx Arthritis Past Surgical History: Reports: Hx Section - x 2 - Immunizations Hx Diphtheria, Pertussis, Tetanus Vaccination: Yes Hx Pneumococcal Vaccination: 03/10/14 Review of Systems - Review of Systems -: Yes ROS unobtainable due to patient's medical condition Physical Exam - Vital signs Vitals: Pulse Ox 98 05/30/18 16:33 Interpretation: Hypotensive, Tachycardic, Tachypneic Notes: PHYSICAL EXAMINATION: GENERAL: Frail, obtunded, unable to speak HEAD: Atraumatic, normocephalic. EYES: Pupils equal round and reactive to light, extraocular movements intact, sclera anicteric, conjunctiva are normal. ENT: nares patent, oropharynx clear without exudates. Moist mucous membranes. NECK: Normal range of motion, supple without lymphadenopathy LUNGS: Breath sounds clear to auscultation bilaterally and equal. No wheezes rales or rhonchi. HEART: Regular tachycardia without murmurs ABDOMEN: Soft, nontender, normoactive bowel sounds. No guarding, no rebound. No masses appreciated. EXTREMITIES: Normal range of motion, no pitting or edema. No cyanosis. NEUROLOGICAL: Does not move the right side of her body. Grasps fingers on the left side with command. Intermittently moves her left lower extremity. A phasic. PSYCH: Obtunded, does not speak SKIN: Warm, Dry, normal turgor, there is a large stage IV decubitus ulcer of the sacrum approximately 5 x 7 cm in size with necrotic changes and a strong foul odor Course - Re-evaluation Re-evalutation: 05/30/18 19:41 Documentation is delayed as I been at this patient's bedside continuously for the past 45 minutes having a goals of care conversation with the family as well as discussing plan of care. In summary this patient is 72 years of age, bedbound with express of a aphasia, right-sided hemiparesis after having a large stroke in 2018. Patient has not been eating or drinking for the past 5 days. On examination she has a stage IV sacral decubitus ulcer with necrotic, purulent tissue that is very strong in odor. Family initially was hoping that there would be additional interventions that could be undertaken to extend their loved one's life including feeding tube placement. We did have an extended conversation regarding extension of life versus extension of quality of life. The patient appears to likely be septic from the sacral decubitus ulcer, moderately tachycardic, hypotensive, has a prominent leukocytosis at 17.8. She also has a prerenal azotemia with associated elect light abnormalities likely secondary to not taking oral intake. I suspect the patient's dysphasia has advanced to a point that she can no longer swallow. She is also high risk for aspiration pneumonia. The patient has only had 100 cc of urine output since 8 AM this morning. 05/30/18 22:27 I had an additional [id number] conversation with multiple family members. Laboratories do also show pyelonephritis associated with a catheter infection. Chest x-ray without evidence of acute pneumonia. Family after this extended period of conversation has elected to proceed with IV fluids and IV antibiotics. The patient is a DNR, DNI, and has stated well still able to speak that she would never want a feeding tube. The family plans to resume home hospice after the patient has been temporarily stabilized 05/31/18 00:06 CT the abdomen pelvis obtained at Dr. Ricketts's request does not show any evidence of obstructive uropathy but does show gas extension from the sacral decubitus ulcer consistent with what I already told the family that this would require extensive surgical management and would likely be the source of what causes the patient to . The patient is not a surgical candidate secondary to her poor clinical status I do not believe she would at all tolerate the operating room setting or general anesthesia. I disclose this finding of the family and informed them that this dramatically worsens her overall prognosis. - Vital Signs Vital signs: Temp Pulse Resp BP Pulse Ox 98.6 F 32 H 96/51 L 98 05/30/18 18:26 05/31/18 00:01 05/31/18 00:01 05/31/18 00:01 - Laboratory Result Diagrams: 05/30/18 18:13 05/30/18 18:13 Laboratory results interpreted by me: 05/30/18 05/30/18 05/30/18 18:13 18:13 20:05 WBC 17.4 H Hgb 10.6 L Hct 33.4 L MCH 25.5 L MCHC 31.7 L RDW 17.1 H Seg Neutrophils % 83.2 H Lymphocytes % 7.7 L Absolute Neutrophils 14.5 H Absolute Monocytes 1.5 H Sodium 148.1 H Chloride 110 H Carbon Dioxide 15 L Anion Gap 23 H BUN 99 H Creatinine 1.87 H Est GFR ( Amer) 32 L Est GFR (Non-Af Amer) 27 L Glucose 397 H Direct Bilirubin 0.7 H Albumin 3.4 L Urine Protein 30 H Urine Ketones TRACE H Urine Blood MODERATE H Urine Urobilinogen 2.0 H Ur Leukocyte Esterase LARGE H - Diagnostic Test Radiology reviewed: Image reviewed, Reports reviewed Radiology results interpreted by me: 05/31/18 03:32 Chest x-ray: No acute infiltrate or pneumothorax CT abdomen pelvis: Gas extending from the sacral wound into the pelvis region Critical Care Note - Critical Care Note Total time excluding time spent on procedures (mins): 80 Comments: Care time spent with a 40-minute conversation with multiple family members regarding goals of care, end-of-life care, assessing the patient, doing full physical examination, review of laboratories, all laboratories, old imaging, reviewing new imaging, and reassessments of family members decision making process as well as patient's clinical status. Discharge - Discharge Clinical Impression: Sacral decubitus ulcer, stage IV, Aphasia, Pyelonephritis Sepsis Qualifiers: Sepsis type: sepsis due to unspecified organism Qualified Code(s): A41.9 - Sepsis, unspecified organism Stroke Qualifiers: CVA mechanism: unspecified Qualified Code(s): I63.9 - Cerebral infarction, unspecified Condition: Fair Disposition: ADMITTED INPATIENT Admitting Provider: Hospitalist Unit Admitted: Medical Floor
[2018-05-30 20:44] LABS: APPEARANCE,URINE CLOUDY; BILIRUBIN,URINE NEGATIVE (NEGATIVE); COLOR,URINE AMBER; GLUCOSE, URINE NEGATIVE (NEGATIVE); KETONES,URINE TRACE mg/dL (NEGATIVE); LEUKOCYTE ESTERASE,URINE LARGE (NEGATIVE); NITRITE,URINE NEGATIVE (NEGATIVE); PROTEIN,URINE 30 mg/dL (NEGATIVE); URINE SPECIFIC GRAVITY 1.017
--- NOTE | 2018-05-30 20:46 | RADIOLOGY REPORT (SQ) ---
EXAM DESCRIPTION: XR CHEST 1 VIEW COMPLETED DATE/TME: 05/30/2018 19:40 CLINICAL HISTORY: 72 years, Female, eval aspiration pneumonia COMPARISON: 04/25/2018 chest x-ray NUMBER OF VIEWS: 1 TECHNIQUE: Portable chest LIMITATIONS: None. FINDINGS: The heart size is normal. Osteopenia. Minimal blunting of the left costophrenic angle consistent with tiny left effusion and/or pleural thickening. Lungs otherwise clear. No pneumothorax. Atheromatous change thoracic aorta. IMPRESSION: Tiny left effusion and/or pleural thickening. Osteopenia copyright 2010 [employer]- All Rights Reserved
[2018-05-30] MEDS ORDERED: CEFTRIAXONE INJ 1000 MG VIAL IV ONE (22:25)
[2018-05-30] MEDS ORDERED: NORMAL SALINE 1000 ML 1,000 ML IV ONE ×2 (22:25)
--- NOTE | 2018-05-30 23:20 | RADIOLOGY REPORT (SQ) ---
EXAM DESCRIPTION: CT ABDOMEN PELVIS WITHOUT IV CONTRAST COMPLETED DATE/TME: 05/30/2018 22:45 CLINICAL HISTORY: 72 years, Female, eval obstruction COMPARISON: 02/26/2015, 07/25/2017 CT TECHNIQUE: 296 Images stored on PACS. All CT scanners at this facility use dose modulation, iterative reconstruction, and/or weight based dosing when appropriate to reduce radiation dose to as low as reasonably achievable (ALARA). [facility]: Dose Right [facility]: CareDose [facility]: Dose Right [facility]: Teradose 4D [facility]: [employer] LIMITATIONS: None. FINDINGS: Limited evaluation of the lung bases is unremarkable. Osseous structures are grossly intact. Motion artifact degrades image quality. As visualized the liver, spleen, adrenal glands, pancreas are unremarkable. The gallbladder is present. Right kidney is unremarkable. A cluster of calcifications in the inferior pole of the left kidney measuring 1 cm. However there is no obstructing calculus or hydronephrosis. Punctate nonobstructing 1 to 2 mm calculus in the midpole of the left kidney. No gross evidence for bowel obstruction. Normal appendix. No free air or free fluid. Burks catheter within the urinary bladder. Air within the urinary bladder is presumably iatrogenic. There is extensive soft tissue gas in the posterior soft tissues overlying the sacrum and coccyx, extending both to the right and left of midline. A small amount of gas extends more anteriorly, to the right of midline near the coccyx. Gas is also seen to extend to the cutaneous surface. No discrete or defined abscess. Underlying osseous structures are grossly unremarkable. Small amount of gas also extends to the right perirectal fat. Minor subcutaneous inflammatory changes are noted. IMPRESSION: Nonspecific soft tissue gas in the gluteal region, superficial to the coccyx as above. Gas extends to the cutaneous surface and may reflect areas of decubitus ulcer formation and underlying gas. A small amount of soft tissue gas also extends more anteriorly to the right of midline into the right perirectal fat. Minor surrounding inflammatory changes. Correlate with physical exam and patient history. The underlying osseous structures are grossly intact. No discrete or defined abscess. Stable coarse calcification of the inferior pole left kidney. No obstructing calculus or hydronephrosis. Burks catheter within the urinary bladder. Air within the urinary bladder is presumably iatrogenic. TECHNICAL DOCUMENTATION: Quality ID # [id number]: Final reports with documentation of one or more dose reduction techniques (e.g., Automated exposure control, adjustment of the mA and/or kV according to patient size, use of iterative reconstruction technique) copyright 2011 [employer]- All Rights Reserved
[2018-05-31] MEDS ORDERED: ACETAMINOPHEN 650 MG SUPP.RECT PR PRN (00:06)
[2018-05-31] MEDS ORDERED: MAGNESIUM HYDROXIDE SUSP 30 ML UDCUP PO PRN (00:06)
[2018-05-31] MEDS ORDERED: NORMAL SALINE 1000 ML 1,000 ML IV ONE (00:11)
[2018-05-31] MEDS ORDERED: FENTANYL CITRATE INJ/PF 100 MCG/2 ML AMPUL IV PRN (00:13)
--- NOTE | 2018-05-31 06:42 | PDOC H&P ---
History of Present Illness Admission Date/PCP: 05/31/18 00:30 [facility] BAPTISTE Patient complains of: Altered mental status History of Present Illness: FRANCISCO JAVIER GRAVES is a 72 year old female with a past medical history of hypertension, diabetes, hypertension, dyslipidemia, CVA with right-sided hemiparesis, aphasia and nonverbal baseline on hospice. She presents with family concerned of progressive decline over the last 1 week with out p.o. intake. Family request alternate options from home hospice. In the emergency room she is found to be in severe sepsis with stage IV sacral decubiti with gas extending to the pelvis by CT. additionally acute renal failure with pyuria. She started on empiric antibiotics and referred to the hospitalist for admission. Her CODE STATUS thankfully remains DNR. There are no family members at bedside to discuss the eminent decline expected despite aggressive measures. Patient is a perfect candidate for comfort measure s only, discharge planning consulted for alternate hospice arrangements. Past Medical History Cardiac Medical History: Reports: Hyperlipidema, Hypertension - on meds Endocrine Medical History: Reports: Diabetes Mellitus Type 2 Musculoskeltal Medical History: Reports: Arthritis Hematology: Reports: Anemia - hx of Denies: Sickle Cell Disease Past Surgical History Past Surgical History: Reports: Section - x 2 Denies: Amputation Social History Information Source: Patient Lives with: Family Smoking Status: Former Smoker Frequency of Alcohol Use: None Hx Recreational Drug Use: No Drugs: None Hx Prescription Drug Abuse: No - Advance Directive Resuscitation Status: Do Not Resuscitate Family History Family History: Other - Unobtainable Parental Family History Reviewed: Yes Children Family History Reviewed: Yes Sibling(s) Family History Reviewed.: Yes Medication/Allergy Home Medications: Amlodipine Besylate [Norvasc 10 mg Tablet] 10 mg PO DAILY 02/26/18 Atorvastatin Calcium [Lipitor 40 mg Tablet] 80 mg PO DAILY 02/26/18 Ergocalciferol (Vitamin D2) [Vitamin D2] 50,000 unit PO TH@1000 02/26/18 Meloxicam [Mobic] 7.5 mg PO BID 02/26/18 Aspirin [Ecotrin 325 mg EC Tablet] 325 mg PO DAILY 04/25/18 Carvedilol [Coreg 25 mg Tablet] 1 tab PO Q12 04/25/18 Diclofenac Sodium [Voltaren] 1 applic TP BIDP PRN 04/25/18 Famotidine [Acid Controller] 20 mg PO BID 04/25/18 Insulin Lispro [Humalog Insulin (Lispro) 100 unit/mL] 0 unit SUBCUT .SLD SCALE 04/25/18 Levocetirizine Dihydrochloride [24Hr Allergy Relief] 5 mg PO QPM 04/25/18 Lisinopril [Zestril] 40 mg PO DAILY 04/25/18 Insulin Detemir [Levemir Insulin 300 Units/3 ml Insuln.pen] 15 unit SUBCUT QHS #10 ml 04/29/18 Allergies/Adverse Reactions: Sulfa (Sulfonamide Antibiotics) Allergy (Unknown, Verified 04/25/18 16:43) unsure Review of Systems ROS unobtainable: Due to mental status - Unobtainable Physical Exam Vital Signs: Temp Pulse Resp BP Pulse Ox 98.3 F 30 H 93/51 L 100 05/31/18 03:27 05/31/18 02:01 05/31/18 02:01 05/31/18 02:01 Intake & Output 05/29/18 05/30/18 05/31/18 11:59 11:59 11:59 Intake Total 1000 Balance 1000 General appearance: PRESENT: severe distress, other - Acutely toxic appearing older than stated age, temporal wasting with cachexia. ABSENT: cooperative, hard of hearing Head exam: PRESENT: atraumatic, normocephalic Eye exam: PRESENT: conjunctiva pale. ABSENT: conjunctiva pink, EOMI, PERRLA Ear exam: PRESENT: normal external ear exam Mouth exam: PRESENT: dry mucosa. ABSENT: moist, neck supple Neck exam: ABSENT: carotid bruit, JVD, lymphadenopathy, thyromegaly Respiratory exam: PRESENT: crackles, decreased breath sounds, prolonged expiratory phas. ABSENT: rales, rhonchi, wheezes Cardiovascular exam: PRESENT: RRR, tachycardia. ABSENT: diastolic murmur, rubs, systolic murmur Pulses: PRESENT: normal dorsalis pedis pul Vascular exam: PRESENT: normal capillary refill GI/Abdominal exam: PRESENT: normal bowel sounds, soft. ABSENT: distended, guarding, mass, organolmegaly, rebound, tenderness Torso Front/Back Image: 1 - 14 x 12 cm sacral decubiti with purulent discharge Rectal exam: PRESENT: deferred Extremities exam: PRESENT: full ROM. ABSENT: calf tenderness, clubbing, pedal edema Neurological exam: PRESENT: altered. ABSENT: alert, awake, oriented to person, oriented to place, oriented to time, oriented to situation, CN II-XII grossly intact Psychiatric exam: PRESENT: flat affect Skin exam: PRESENT: other - 4 x 4 centimeter stage III heel ulcers bilaterally Results Laboratory Results: 05/30/18 18:13 05/30/18 18:13 05/30/18 05/30/18 05/30/18 18:13 18:13 18:41 WBC 17.4 H RBC 4.15 Hgb 10.6 L Hct 33.4 L MCV 81 MCH 25.5 L MCHC 31.7 L RDW 17.1 H Plt Count 323 Seg Neutrophils % 83.2 H Lymphocytes % 7.7 L Monocytes % 8.7 Eosinophils % 0.0 Basophils % 0.4 Absolute Neutrophils 14.5 H Absolute Lymphocytes 1.3 Absolute Monocytes 1.5 H Absolute Eosinophils 0.0 Absolute Basophils 0.1 Sodium 148.1 H Potassium 5.0 Chloride 110 H Carbon Dioxide 15 L Anion Gap 23 H BUN 99 H Creatinine 1.87 H Est GFR ( Amer) 32 L Est GFR (Non-Af Amer) 27 L Glucose 397 H Calcium 9.6 Total Bilirubin 0.8 AST 25 ALT 27 Alkaline Phosphatase 74 Total Protein 6.8 Albumin 3.4 L Urine Color Cancelled Urine Appearance Cancelled Urine pH Cancelled Ur Specific Falls Cancelled Urine Protein Cancelled Urine Glucose (UA) Cancelled Urine Ketones Cancelled Urine Blood Cancelled Urine Nitrite Cancelled Ur Leukocyte Esterase Cancelled Urine WBC (Auto) Cancelled Urine RBC (Auto) Cancelled 05/30/18 20:05 WBC RBC Hgb Hct MCV MCH MCHC RDW Plt Count Seg Neutrophils % Lymphocytes % Monocytes % Eosinophils % Basophils % Absolute Neutrophils Absolute Lymphocytes Absolute Monocytes Absolute Eosinophils Absolute Basophils Sodium Potassium Chloride Carbon Dioxide Anion Gap BUN Creatinine Est GFR ( Amer) Est GFR (Non-Af Amer) Glucose Calcium Total Bilirubin AST ALT Alkaline Phosphatase Total Protein Albumin Urine Color TEGAN Urine Appearance CLOUDY Urine pH 5.0 Ur Specific Falls 1.017 Urine Protein 30 H Urine Glucose (UA) NEGATIVE Urine Ketones TRACE H Urine Blood MODERATE H Urine Nitrite NEGATIVE Ur Leukocyte Esterase LARGE H Urine WBC (Auto) >182 Urine RBC (Auto) 24 Impressions: Chest X-Ray 05/30/18 19:40 IMPRESSION: Tiny left effusion and/or pleural thickening. Osteopenia copyright 2010 [employer]- All Rights Reserved Abdomen/Pelvis CT 05/30/18 22:45 IMPRESSION: Nonspecific soft tissue gas in the gluteal region, superficial to the coccyx as above. Gas extends to the cutaneous surface and may reflect areas of decubitus ulcer formation and underlying gas. A small amount of soft tissue gas also extends more anteriorly to the right of midline into the right perirectal fat. Minor surrounding inflammatory changes. Correlate with physical exam and patient history. The underlying osseous structures are grossly intact. No discrete or defined abscess. Stable coarse calcification of the inferior pole left kidney. No obstructing calculus or hydronephrosis. Burks catheter within the urinary bladder. Air within the urinary bladder is presumably iatrogenic. TECHNICAL DOCUMENTATION: Quality ID # [id number]: Final reports with documentation of one or more dose reduction techniques (e.g., Automated exposure control, adjustment of the mA and/or kV according to patient size, use of iterative reconstruction technique) copyright 2010 [employer]- All Rights Reserved Assessment & Plan - Diagnosis (1) Sacral decubitus ulcer, stage IV Is this a current diagnosis for this admission?: Yes Plan: Large malodorous ulcer with CT evidence of gas extending to the pelvis. Not a surgical candidate. Supportive care (2) Pyelonephritis Is this a current diagnosis for this admission?: Yes Plan: No evidence of obstruction, empiric antibiotics initiated in the emergency room will continue, follow-up urine and blood culture (3) Sepsis Qualifiers: Sepsis type: sepsis due to unspecified organism Qualified Code(s): A41.9 - Sepsis, unspecified organism Is this a current diagnosis for this admission?: Yes Plan: IV fluid challenge, empiric antibiotics, follow-up CBC blood and urine culture, extremely poor prognosis, hospice consulted (4) Altered mental status, unspecified Qualifiers: Altered mental status type: unspecified Qualified Code(s): R41.82 - Altered mental status, unspecified Is this a current diagnosis for this admission?: Yes Plan: Encephalopathic secondary to acute illness. Supportive care - Time Time Spent: 50 to 70 Minutes - Inpatient Certification Medical Necessity: Need Close Monitoring Due to Risk of Patient Decompensation
[2018-05-31 06:54] LABS: ABSOLUTE LYMPHOCYTES (AUTO) 1.4 10^3/uL (0.5-4.7); ABSOLUTE MONOCYTES (AUTO) 1.4 10^3/uL (0.1-1.4); ABSOLUTE NEUT (AUTO) 13.7 10^3/uL (1.7-8.2); BASOPHILS % (AUTO) 0.1 % (0-2); HEMATOCRIT 29.7 % (36.0-47.0); HEMOGLOBIN 9.3 g/dL (12.0-15.5); LYMPHOCYTES % (AUTO) 8.4 % (13-45); MEAN CORPUSCULAR HEMOGLOBIN 25.2 pg (27.0-33.4); MEAN CORPUSCULAR HGB CONC 31.5 g/dL (32.0-36.0); MEAN CORPUSCULAR VOLUME 80 fl (80-97); MONOCYTES % (AUTO) 8.4 % (3-13); PLATELET COUNT 288 10^3/uL (150-450); RED BLOOD COUNT 3.71 10^6/uL (3.72-5.28); RED CELL DISTRIBUTION WIDTH 17.5 % (11.5-14.0); SEGMENTED NEUTROPHILS % (AUTO) 83.1 % (42-78); TOTAL CELLS COUNTED % (AUTO) 100 %; WHITE BLOOD COUNT 16.5 10^3/uL (4.0-10.5)
[2018-05-31 07:10] LABS: BLOOD UREA NITROGEN 100 mg/dL (7-20); CALCIUM 8.9 mg/dL (8.4-10.2); POTASSIUM 4.7 mmol/L (3.6-5.0)
[2018-05-31 07:15] LABS: CARBON DIOXIDE 14 mmol/L (22-30); CHLORIDE 114 mmol/L (98-107); SODIUM 150.5 mmol/L (137-145)
[2018-05-31 07:20] LABS: ANION GAP 23 (5-19)
[2018-05-31 07:22] LABS: GLUCOSE 437 mg/dL (75-110)
[2018-05-31] MEDS: HEPARIN SOD (PORCINE) 5,000 UNIT/ML 1 ML SYRINGE SUBCUT SCH ×3 (07:58→21:47)
[2018-05-31] MEDS ORDERED: CEFTRIAXONE 1 GM/D5W RTU 1 GM/50 ML RTUPB IV SCH (10:00)
[2018-05-31] MEDS: ASPIRIN 325 MG TABLET, ENT COATED PO SCH (10:39)
[2018-05-31] MEDS ORDERED: NORMAL SALINE 1000 ML 1,000 ML IV PRN (10:55)
[2018-05-31] MEDS ORDERED: DEXTROSE 50%-WATER 25 GM/50 ML DISP.SYRIN IV PRN ×2 (10:55)
[2018-05-31] MEDS ORDERED: GLUCAGON,HUMAN RECOMB 1 MG INJ IM PRN (10:55)
[2018-05-31] MEDS ORDERED: DEXTROSE 40% GEL 15 GM TUBE PO PRN ×2 (10:55)
[2018-05-31] MEDS: INSULIN LISPRO 100 UNIT/ML 3 ML VIAL SUBCUT PRN ×2 (13:29→18:08)
[2018-05-31] MEDS: PIPERACILLIN SODIUM/TAZOBACTAM 2.25 GM in NORMAL SALINE 50 ML IV SCH ×2 (15:31→21:48)
[2018-06-01] MEDS: PIPERACILLIN SODIUM/TAZOBACTAM 2.25 GM in NORMAL SALINE 50 ML IV SCH ×3 (03:15→14:53)
[2018-06-01] MEDS: HEPARIN SOD (PORCINE) 5,000 UNIT/ML 1 ML SYRINGE SUBCUT SCH ×2 (05:11→14:53)
[2018-06-01 05:34] LABS: ABSOLUTE LYMPHOCYTES (AUTO) 1.2 10^3/uL (0.5-4.7); ABSOLUTE MONOCYTES (AUTO) 1.4 10^3/uL (0.1-1.4); ABSOLUTE NEUT (AUTO) 13.8 10^3/uL (1.7-8.2); BASOPHILS % (AUTO) 0.2 % (0-2); HEMATOCRIT 28.5 % (36.0-47.0); HEMOGLOBIN 9.2 g/dL (12.0-15.5); LYMPHOCYTES % (AUTO) 7.4 % (13-45); MEAN CORPUSCULAR HEMOGLOBIN 25.1 pg (27.0-33.4); MEAN CORPUSCULAR HGB CONC 32.2 g/dL (32.0-36.0); MEAN CORPUSCULAR VOLUME 78 fl (80-97); MONOCYTES % (AUTO) 8.7 % (3-13); PLATELET COUNT 285 10^3/uL (150-450); RED BLOOD COUNT 3.65 10^6/uL (3.72-5.28); RED CELL DISTRIBUTION WIDTH 17.2 % (11.5-14.0); SEGMENTED NEUTROPHILS % (AUTO) 83.7 % (42-78); TOTAL CELLS COUNTED % (AUTO) 100 %; WHITE BLOOD COUNT 16.5 10^3/uL (4.0-10.5)
[2018-06-01 05:59] LABS: ANION GAP 13 (5-19); BLOOD UREA NITROGEN 115 mg/dL (7-20); CALCIUM 9.2 mg/dL (8.4-10.2); CARBON DIOXIDE 21 mmol/L (22-30); CHLORIDE 118 mmol/L (98-107); GLUCOSE 325 mg/dL (75-110); SODIUM 151.5 mmol/L (137-145)
[2018-06-01] MEDS: INSULIN LISPRO 100 UNIT/ML 3 ML VIAL SUBCUT PRN ×2 (06:43→11:51)
[2018-06-01] MEDS: ASPIRIN 325 MG TABLET, ENT COATED PO SCH (09:06)
--- NOTE | 2018-06-01 15:59 | PDOC PROGRESS REPORT ---
Subjective Progress Note for:: 06/01/18 Subjective:: No adverse events overnight. She remains unresponsive. She has looked fairly comfortable to her family. They asked that we stop the IV fluids because it looked like it was making her swell without really affecting her blood pressure very much. They have also decided to stop her antibiotics and just try to keep her comfortable. Reason For Visit: SEPSIS, STAGE 4, SACREAL DECUB, AMS ARF Physical Exam Vital Signs: Temp Pulse Resp BP Pulse Ox 97.8 F 93 22 H 115/55 L 100 06/01/18 11:32 06/01/18 11:32 06/01/18 11:32 06/01/18 11:32 06/01/18 11:32 Intake & Output 05/31/18 06/01/18 06/02/18 06:59 06:59 06:59 Intake Total 2000 200 50 Output Total 300 Balance 1999 -100 50 Weight 62.8 kg General appearance: PRESENT: no acute distress, other - She is laying on the bed covered up blanket with her eyes closed, asleep Respiratory exam: PRESENT: unlabored. ABSENT: accessory muscle use, prolonged expiratory phas, retraction, tachypnea Extremities exam: PRESENT: +1 edema Neurological exam: ABSENT: alert, awake Psychiatric exam: ABSENT: agitated Results Laboratory Results: 06/01/18 04:44 06/01/18 04:44 06/01/18 06/01/18 04:44 04:44 WBC 16.5 H RBC 3.65 L Hgb 9.2 L Hct 28.5 L MCV 78 L MCH 25.1 L MCHC 32.2 RDW 17.2 H Plt Count 285 Seg Neutrophils % 83.7 H Lymphocytes % 7.4 L Monocytes % 8.7 Eosinophils % 0.0 Basophils % 0.2 Absolute Neutrophils 13.8 H Absolute Lymphocytes 1.2 Absolute Monocytes 1.4 Absolute Eosinophils 0.0 Absolute Basophils 0.0 Sodium 151.5 H Potassium 4.0 Chloride 118 H Carbon Dioxide 21 L Anion Gap 13 BUN 115 H Creatinine 2.06 H Est GFR ( Amer) 29 L Est GFR (Non-Af Amer) 24 L Glucose 325 H Calcium 9.2 Impressions: Chest X-Ray 05/30/18 19:40 IMPRESSION: Tiny left effusion and/or pleural thickening. Osteopenia copyright 2011 [employer]- All Rights Reserved Abdomen/Pelvis CT 05/30/18 22:45 IMPRESSION: Nonspecific soft tissue gas in the gluteal region, superficial to the coccyx as above. Gas extends to the cutaneous surface and may reflect areas of decubitus ulcer formation and underlying gas. A small amount of soft tissue gas also extends more anteriorly to the right of midline into the right perirectal fat. Minor surrounding inflammatory changes. Correlate with physical exam and patient history. The underlying osseous structures are grossly intact. No discrete or defined abscess. Stable coarse calcification of the inferior pole left kidney. No obstructing calculus or hydronephrosis. Burks catheter within the urinary bladder. Air within the urinary bladder is presumably iatrogenic. TECHNICAL DOCUMENTATION: Quality ID # 436: Final reports with documentation of one or more dose reduction techniques (e.g., Automated exposure control, adjustment of the mA and/or kV according to patient size, use of iterative reconstruction technique) copyright 2011 [employer]- All Rights Reserved Assessment & Plan - Diagnosis (1) Acute encephalopathy Is this a current diagnosis for this admission?: Yes Plan: Multifactorial. Family has moved to comfort measures. (2) Sacral decubitus ulcer, stage IV Is this a current diagnosis for this admission?: Yes Plan: She has gas extending into her abdomen. She is not a candidate for any kind of surgical intervention. (3) Sepsis Qualifiers: Sepsis type: sepsis due to unspecified organism Qualified Code(s): A41.9 - Sepsis, unspecified organism Is this a current diagnosis for this admission?: Yes Plan: She has organ dysfunction, specifically her kidneys, as result of this and her dehydration because she had not had anything to eat or drink in probably a week. She is got something growing in her urine culture, and she also has what looked like 2 organisms in her blood culture. As noted above, we stopped antibiotics at the family's request as they wish to just keep her comfortable. (4) Hypernatremia Is this a current diagnosis for this admission?: Yes Plan: Due to dehydration. We gave her fluids and it made no real difference, and just third spaced. (5) Urinary tract infection Qualifiers: Indwelling urinary catheter type: unspecified Is this a current diagnosis for this admission?: Yes Plan: Antibiotics have been withdrawn as noted above at family's request. - Time Time Spent with patient: 25-34 minutes
[2018-06-02] MEDS: ASPIRIN 325 MG TABLET, ENT COATED PO SCH (09:22)
--- NOTE | 2018-06-02 18:25 | PDOC PROGRESS REPORT ---
Subjective Progress Note for:: 06/02/18 Subjective:: Family made her comfort measures yesterday. Some more family has come in and apparently have not talked to some of the other family members that have been here because they were having questions as to why she was not on IV fluids or antibiotics or anything else like that. Patient's clinical condition has not changed. Reason For Visit: SEPSIS, STAGE 4, SACREAL DECUB, AMS ARF Physical Exam Vital Signs: Temp Pulse Resp BP Pulse Ox 98.0 F 98 22 H 115/63 100 06/02/18 11:14 06/02/18 11:14 06/02/18 11:14 06/02/18 11:14 06/02/18 11:14 Intake & Output 06/01/18 06/02/18 06/03/18 06:59 06:59 06:59 Intake Total 200 100 Output Total 300 575 200 Balance -100 -475 -200 Weight 62.8 kg 68.7 kg General appearance: PRESENT: no acute distress, other - She is laying on the bed covered up blanket with her eyes closed, asleep Respiratory exam: PRESENT: unlabored. ABSENT: accessory muscle use, prolonged expiratory phas, retraction, tachypnea Extremities exam: PRESENT: +1 edema Neurological exam: ABSENT: alert, awake Psychiatric exam: ABSENT: agitated Results Laboratory Results: 06/01/18 04:44 06/01/18 04:44 05/30/18 23:05 Blood Blood Culture - Final Staphylococcus Epidermidis Prevotella Species 05/30/18 20:05 Clean Catch Midstream Urine Culture - Final Escherichia Coli Impressions: Chest X-Ray 05/30/18 19:40 IMPRESSION: Tiny left effusion and/or pleural thickening. Osteopenia copyright 2011 [employer]- All Rights Reserved Abdomen/Pelvis CT 05/30/18 22:45 IMPRESSION: Nonspecific soft tissue gas in the gluteal region, superficial to the coccyx as above. Gas extends to the cutaneous surface and may reflect areas of decubitus ulcer formation and underlying gas. A small amount of soft tissue gas also extends more anteriorly to the right of midline into the right perirectal fat. Minor surrounding inflammatory changes. Correlate with physical exam and patient history. The underlying osseous structures are grossly intact. No discrete or defined abscess. Stable coarse calcification of the inferior pole left kidney. No obstructing calculus or hydronephrosis. Burks catheter within the urinary bladder. Air within the urinary bladder is presumably iatrogenic. TECHNICAL DOCUMENTATION: Quality ID # 436: Final reports with documentation of one or more dose reduction techniques (e.g., Automated exposure control, adjustment of the mA and/or kV according to patient size, use of iterative reconstruction technique) copyright 2011 [employer]- All Rights Reserved Assessment & Plan - Diagnosis (1) Acute encephalopathy Is this a current diagnosis for this admission?: Yes Plan: Multifactorial. Family has moved to comfort measures. (2) Sacral decubitus ulcer, stage IV Is this a current diagnosis for this admission?: Yes Plan: She has gas extending into her abdomen. She is not a candidate for any kind of surgical intervention. We are trying not to move her unless she looks uncomfortable. (3) Sepsis Qualifiers: Sepsis type: sepsis due to unspecified organism Qualified Code(s): A41.9 - Sepsis, unspecified organism Is this a current diagnosis for this admission?: Yes Plan: She has organ dysfunction, specifically her kidneys, as result of this and her dehydration because she had not had anything to eat or drink in probably a week. She is got E. coli growing in her urine culture, and she also has Staphylococcus epidermidis and a Prevotella in her blood culture. As noted above, we stopped antibiotics at the family's request as they wish to just keep her comfortable. (4) Hypernatremia Is this a current diagnosis for this admission?: Yes Plan: Due to dehydration. We gave her fluids and it made no real difference, and just third spaced. (5) Urinary tract infection Qualifiers: Indwelling urinary catheter type: unspecified Is this a current diagnosis for this admission?: Yes Plan: Antibiotics have been withdrawn as noted above at family's request. - Time Time Spent with patient: 15-24 minutes
[2018-06-03] MEDS: ASPIRIN 325 MG TABLET, ENT COATED PO SCH (09:37)
--- NOTE | 2018-06-03 17:22 | PDOC PROGRESS REPORT ---
Subjective Progress Note for:: 06/03/18 Subjective:: Patient remains on comfort measures. She remains unresponsive. Family says that they think she has seemed very comfortable to them. The family members and I talked to today seem to be very satisfied with how she is being treated here. Reason For Visit: SEPSIS, STAGE 4, SACREAL DECUB, AMS ARF Physical Exam Vital Signs: Temp Pulse Resp BP Pulse Ox 99.5 F 106 H 17 136/67 H 97 06/03/18 12:18 06/03/18 12:18 06/02/18 23:20 06/03/18 12:18 06/03/18 12:18 Intake & Output 06/02/18 06/03/18 06/04/18 06:59 06:59 06:59 Intake Total 100 Output Total 575 700 Balance -475 -700 Weight 68.7 kg 68.7 kg General appearance: PRESENT: no acute distress, other - She is laying on the bed covered up blanket with her eyes closed, asleep Respiratory exam: PRESENT: unlabored. ABSENT: accessory muscle use, prolonged expiratory phas, retraction, tachypnea Extremities exam: PRESENT: +1 edema Neurological exam: ABSENT: alert, awake Psychiatric exam: ABSENT: agitated Results Laboratory Results: 06/01/18 04:44 06/01/18 04:44 05/30/18 23:05 Blood Blood Culture - Final Staphylococcus Epidermidis Prevotella Species Impressions: Chest X-Ray 05/30/18 19:40 IMPRESSION: Tiny left effusion and/or pleural thickening. Osteopenia copyright 2011 [employer]- All Rights Reserved Abdomen/Pelvis CT 05/30/18 22:45 IMPRESSION: Nonspecific soft tissue gas in the gluteal region, superficial to the coccyx as above. Gas extends to the cutaneous surface and may reflect areas of decubitus ulcer formation and underlying gas. A small amount of soft tissue gas also extends more anteriorly to the right of midline into the right perirectal fat. Minor surrounding inflammatory changes. Correlate with physical exam and patient history. The underlying osseous structures are grossly intact. No discrete or defined abscess. Stable coarse calcification of the inferior pole left kidney. No obstructing calculus or hydronephrosis. Burks catheter within the urinary bladder. Air within the urinary bladder is presumably iatrogenic. TECHNICAL DOCUMENTATION: Quality ID # 436: Final reports with documentation of one or more dose reduction techniques (e.g., Automated exposure control, adjustment of the mA and/or kV according to patient size, use of iterative reconstruction technique) copyright 2011 [employer]- All Rights Reserved Assessment & Plan - Diagnosis (1) Acute encephalopathy Is this a current diagnosis for this admission?: Yes Plan: Multifactorial. Family has moved to comfort measures. (2) Sacral decubitus ulcer, stage IV Is this a current diagnosis for this admission?: Yes Plan: She has gas extending into her abdomen. She is not a candidate for any kind of surgical intervention. We are trying not to move her unless she looks uncomfortable. (3) Sepsis Qualifiers: Sepsis type: sepsis due to unspecified organism Qualified Code(s): A41.9 - Sepsis, unspecified organism Is this a current diagnosis for this admission?: Yes Plan: She has organ dysfunction, specifically her kidneys, as result of this and her dehydration because she had not had anything to eat or drink in probably a week. She is got E. coli growing in her urine culture, and she also has Staphylococcus epidermidis and a Prevotella in her blood culture. As noted above, we stopped antibiotics at the family's request as they wish to just keep her comfortable. (4) Hypernatremia Is this a current diagnosis for this admission?: Yes Plan: Due to dehydration. We gave her fluids and it made no real difference, and just third spaced. (5) Urinary tract infection Qualifiers: Indwelling urinary catheter type: unspecified Is this a current diagnosis for this admission?: Yes Plan: Antibiotics have been withdrawn as noted above at family's request. - Time Time Spent with patient: 15-24 minutes
[2018-06-04] MEDS: ASPIRIN 325 MG TABLET, ENT COATED PO SCH (09:50)
--- NOTE | 2018-06-04 18:27 | PDOC PROGRESS REPORT ---
Subjective Progress Note for:: 06/04/18 Subjective:: Patient remains on comfort measures. She remains unresponsive. Family says that they think she has seemed very comfortable to them. The family members and I talked to today seem to be very satisfied with how she is being treated here. No substantial change in her condition. Reason For Visit: SEPSIS, STAGE 4, SACREAL DECUB, AMS ARF Physical Exam Vital Signs: Temp Pulse Resp BP Pulse Ox 99.4 F 107 H 18 123/67 100 06/03/18 20:00 06/03/18 20:00 06/03/18 20:00 06/03/18 20:00 06/03/18 20:00 Intake & Output 06/03/18 06/04/18 06/05/18 06:59 06:59 06:59 Output Total 700 450 Balance -700 -450 Weight 68.7 kg 68.7 kg General appearance: PRESENT: no acute distress, other - She is laying on the bed covered up blanket with her eyes closed, asleep Respiratory exam: PRESENT: unlabored. ABSENT: accessory muscle use, prolonged expiratory phas, retraction, tachypnea Extremities exam: PRESENT: +1 edema Neurological exam: ABSENT: alert, awake Psychiatric exam: ABSENT: agitated Results Laboratory Results: 06/01/18 04:44 06/01/18 04:44 Impressions: Chest X-Ray 05/30/18 19:40 IMPRESSION: Tiny left effusion and/or pleural thickening. Osteopenia copyright 2011 [email or web address]- All Rights Reserved Abdomen/Pelvis CT 05/30/18 22:45 IMPRESSION: Nonspecific soft tissue gas in the gluteal region, superficial to the coccyx as above. Gas extends to the cutaneous surface and may reflect areas of decubitus ulcer formation and underlying gas. A small amount of soft tissue gas also extends more anteriorly to the right of midline into the right perirectal fat. Minor surrounding inflammatory changes. Correlate with physical exam and patient history. The underlying osseous structures are grossly intact. No discrete or defined abscess. Stable coarse calcification of the inferior pole left kidney. No obstructing calculus or hydronephrosis. Burks catheter within the urinary bladder. Air within the urinary bladder is presumably iatrogenic. TECHNICAL DOCUMENTATION: Quality ID # [id number]: Final reports with documentation of one or more dose reduction techniques (e.g., Automated exposure control, adjustment of the mA and/or kV according to patient size, use of iterative reconstruction technique) copyright 2011 [email or web address]- All Rights Reserved Assessment & Plan - Diagnosis (1) Acute encephalopathy Is this a current diagnosis for this admission?: Yes Plan: Multifactorial. Family has moved to comfort measures. (2) Sacral decubitus ulcer, stage IV Is this a current diagnosis for this admission?: Yes Plan: She has gas extending into her abdomen. She is not a candidate for any kind of surgical intervention. We are trying not to move her unless she looks uncomfortable. (3) Sepsis Qualifiers: Sepsis type: sepsis due to unspecified organism Qualified Code(s): A41.9 - Sepsis, unspecified organism Is this a current diagnosis for this admission?: Yes Plan: She has organ dysfunction, specifically her kidneys, as result of this and her dehydration because she had not had anything to eat or drink in probably a week. She is got E. coli growing in her urine culture, and she also has Staphylococcus epidermidis and a Prevotella in her blood culture. As noted radha mcdaniels, we stopped antibiotics at the family's request as they wish to just keep her comfortable. (4) Hypernatremia Is this a current diagnosis for this admission?: Yes Plan: Due to dehydration. We gave her fluids and it made no real difference, and just third spaced. (5) Urinary tract infection Qualifiers: Indwelling urinary catheter type: unspecified Is this a current diagnosis for this admission?: Yes Plan: Antibiotics have been withdrawn as noted above at family's request. - Time Time Spent with patient: 25-34 minutes
[2018-06-05] MEDS: ASPIRIN 325 MG TABLET, ENT COATED PO SCH (09:45)
--- NOTE | 2018-06-05 16:50 | PDOC PROGRESS REPORT ---
Subjective Progress Note for:: 06/05/18 Subjective:: Patient remains on comfort measures. She remains unresponsive. Family says that they think she has seemed very comfortable to them. No substantial change in her condition. Reason For Visit: SEPSIS, STAGE 4, SACREAL DECUB, AMS ARF Physical Exam Vital Signs: Temp Pulse Resp BP Pulse Ox 98.9 F 100 16 113/58 L 96 06/04/18 20:20 06/04/18 20:20 06/04/18 20:20 06/04/18 20:20 06/04/18 20:20 Intake & Output 06/04/18 06/05/18 06/06/18 06:59 06:59 06:59 Output Total 450 200 Balance -450 -200 Weight 68.7 kg 68.7 kg General appearance: PRESENT: no acute distress, other - She is laying on the bed covered up blanket with her eyes closed, asleep Respiratory exam: PRESENT: unlabored. ABSENT: accessory muscle use, prolonged expiratory phas, retraction, tachypnea Extremities exam: PRESENT: +1 edema Neurological exam: ABSENT: alert, awake Psychiatric exam: ABSENT: agitated Results Laboratory Results: 06/01/18 04:44 06/01/18 04:44 05/31/18 00:15 Blood Blood Culture - Final NO GROWTH IN 5 DAYS Impressions: Chest X-Ray 05/30/18 19:40 IMPRESSION: Tiny left effusion and/or pleural thickening. Osteopenia copyright 2010 [email or web address]- All Rights Reserved Abdomen/Pelvis CT 05/30/18 22:45 IMPRESSION: Nonspecific soft tissue gas in the gluteal region, superficial to the coccyx as above. Gas extends to the cutaneous surface and may reflect areas of decubitus ulcer formation and underlying gas. A small amount of soft tissue gas also extends more anteriorly to the right of midline into the right perirectal fat. Minor surrounding inflammatory changes. Correlate with physical exam and patient history. The underlying osseous structures are grossly intact. No discrete or defined abscess. Stable coarse calcification of the inferior pole left kidney. No obstructing calculus or hydronephrosis. Burks catheter within the urinary bladder. Air within the urinary bladder is presumably iatrogenic. TECHNICAL DOCUMENTATION: Quality ID # 436: Final reports with documentation of one or more dose reduction techniques (e.g., Automated exposure control, adjustment of the mA and/or kV according to patient size, use of iterative reconstruction technique) copyright 2011 [email or web address]- All Rights Reserved Assessment & Plan - Diagnosis (1) Acute encephalopathy Is this a current diagnosis for this admission?: Yes Plan: Multifactorial. Family has moved to comfort measures. (2) Sacral decubitus ulcer, stage IV Is this a current diagnosis for this admission?: Yes Plan: She has gas extending into her abdomen. She is not a candidate for any kind of surgical intervention. We are trying not to move her unless she looks uncomfortable. (3) Sepsis Qualifiers: Sepsis type: sepsis due to unspecified organism Qualified Code(s): A41.9 - Sepsis, unspecified organism Is this a current diagnosis for this admission?: Yes Plan: She has organ dysfunction, specifically her kidneys, as result of this and her dehydration because she had not had anything to eat or drink in probably a week. She is got E. coli growing in her urine culture, and she also has Staphylococcus epidermidis and a Prevotella in her blood culture. As noted above, we stopped antibiotics at the family's request as they wish to just keep her comfortable. (4) Hypernatremia Is this a current diagnosis for this admission?: Yes Plan: Due to dehydration. We gave her fluids and it made no real difference, and just third spaced. (5) Urinary tract infection Qualifiers: Indwelling urinary catheter type: unspecified Is this a current diagnosis for this admission?: Yes Plan: Antibiotics have been withdrawn as noted above at family's request. - Time Time Spent with patient: 15-24 minutes
[2018-06-05 17:41] VITALS: BP 74/38
[2018-06-06] MEDS: ASPIRIN 325 MG TABLET, ENT COATED PO SCH (10:06)
--- NOTE | 2018-06-06 10:56 | PDOC PROGRESS REPORT ---
Subjective Progress Note for:: 06/06/18 Subjective:: Patient remains on comfort measures. She remains unresponsive. Her blood pressure this morning was lower than it has been. She remains afebrile. Reason For Visit: SEPSIS, STAGE 4, SACREAL DECUB, AMS ARF Physical Exam Vital Signs: Temp Pulse Resp BP Pulse Ox 99.0 F 96 18 74/38 L 96 06/05/18 17:40 06/05/18 17:40 06/05/18 17:40 06/05/18 17:40 06/05/18 17:40 Intake & Output 06/05/18 06/06/18 06/07/18 06:59 06:59 06:59 Output Total 200 50 Balance -200 -50 Weight 68.7 kg General appearance: PRESENT: no acute distress, other - She is laying on the bed covered up blanket with her eyes closed, asleep Respiratory exam: PRESENT: unlabored. ABSENT: accessory muscle use, prolonged expiratory phas, retraction, tachypnea Extremities exam: PRESENT: +1 edema Neurological exam: ABSENT: alert, awake Psychiatric exam: ABSENT: agitated Results Laboratory Results: 06/01/18 04:44 06/01/18 04:44 Impressions: Chest X-Ray 05/30/18 19:40 IMPRESSION: Tiny left effusion and/or pleural thickening. Osteopenia copyright 2010 [employer]- All Rights Reserved Abdomen/Pelvis CT 05/30/18 22:45 IMPRESSION: Nonspecific soft tissue gas in the gluteal region, superficial to the coccyx as above. Gas extends to the cutaneous surface and may reflect areas of decubitus ulcer formation and underlying gas. A small amount of soft tissue gas also extends more anteriorly to the right of midline into the right perirectal fat. Minor surrounding inflammatory changes. Correlate with physical exam and patient history. The underlying osseous structures are grossly intact. No discrete or defined abscess. Stable coarse calcification of the inferior pole left kidney. No obstructing calculus or hydronephrosis. Burks catheter within the urinary bladder. Air within the urinary bladder is presumably iatrogenic. TECHNICAL DOCUMENTATION: Quality ID # 436: Final reports with documentation of one or more dose reduction techniques (e.g., Automated exposure control, adjustment of the mA and/or kV according to patient size, use of iterative reconstruction technique) copyright 2010 [employer]- All Rights Reserved Assessment & Plan - Diagnosis (1) Acute encephalopathy Is this a current diagnosis for this admission?: Yes Plan: Multifactorial. Family has moved to comfort measures. (2) Sacral decubitus ulcer, stage IV Is this a current diagnosis for this admission?: Yes Plan: She has gas extending into her abdomen. She is not a candidate for any kind of surgical intervention. We are trying not to move her unless she looks uncomfortable. (3) Sepsis Qualifiers: Sepsis type: sepsis due to unspecified organism Qualified Code(s): A41.9 - Sepsis, unspecified organism Is this a current diagnosis for this admission?: Yes Plan: She has organ dysfunction, specifically her kidneys, as result of this and her dehydration because she had not had anything to eat or drink in probably a week. She is got E. coli growing in her urine culture, and she also has Staphylococcus epidermidis and a Prevotella in her blood culture. As noted above, we stopped antibiotics at the family's request as they wish to just keep her comfortable. (4) Hypernatremia Is this a current diagnosis for this admission?: Yes Plan: Due to dehydration. We gave her fluids and it made no real difference, and just third spaced. (5) Urinary tract infection Qualifiers: Indwelling urinary catheter type: unspecified Is this a current diagnosis for this admission?: Yes Plan: Antibiotics have been withdrawn as noted above at family's request. - Time Time Spent with patient: 15-24 minutes
--- NOTE | 2018-06-06 18:35 | Death Summary ---
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 intake. In the emergency room she was found to be in septic shock with stage IV sacral decubitus with gas extending into the pelvis shown in the CT. She is also has acute renal failure with pyuria. The plan of care including comfort care is discussed with the family. Patient was started on IV fluids and antibiotic therapy at the time of admission. The impression at the time of admission is altered mental status/ acute encephalopathy is secondary to acute illness, septic shock, pyelonephritis, stage IV sacral decubitus. The sacral decubitus with gas extending to the abdomen and because of the comorbidities it was decided that as she is not a candidate surgical intervention. Patient was found to be hypernatremic also because of the dehydration. Hypernatremia is persistent despite giving the IV fluids. As per the family request during the hospital stay patient was placed on comfort care measures only. The nurse called me around 5:50 PM today that patient peacefully at 17:40. No aggressive measures was done because the patient is DNR/DNI. certificate was signed. Given her permission to release the body to the home.
== END 2018-06-06 17:40 | DRG 871 ==
LOC: ER 16:25 → EEVIPCON 05-31 00:30 → EH 05-31 00:30 → 4N 05-31 12:50 → 5 06-03 00:45
PROVIDERS: ADMIT Internal Medicine; ATTEND Internal Medicine
DX: A41.9 Sepsis, unspecified organism (principal); L89.154 Pressure ulcer of sacral region, stage 4; N17.9 Acute kidney failure, unspecified; L97.428 Non-pressure chronic ulcer of left heel and midfoot with other specified severity; L97.418 Non-pressure chronic ulcer of right heel and midfoot with other specified severity; I69.351 Hemiplegia and hemiparesis following cerebral infarction affecting right dominant side; G93.40 Encephalopathy, unspecified; E87.0 Hyperosmolality and hypernatremia; N39.0 Urinary tract infection, site not specified; Z66 Do not resuscitate; M79.89 Other specified soft tissue disorders; I69.320 Aphasia following cerebral infarction; E78.5 Hyperlipidemia, unspecified; I10 Essential (primary) hypertension; E11.8 Type 2 diabetes mellitus with unspecified complications; B95.7 Other staphylococcus as the cause of diseases classified elsewhere; B96.89 Other specified bacterial agents as the cause of diseases classified elsewhere; B96.20 Unspecified Escherichia coli [E. coli] as the cause of diseases classified elsewhere; M19.90 Unspecified osteoarthritis, unspecified site; Z87.891 Personal history of nicotine dependence; Z79.82 Long term (current) use of aspirin; Z79.4 Long term (current) use of insulin; Z79.899 Other long term (current) drug therapy
CPT/HCPCS: 36415; 71045; 74176; 80048; 80053; 81001; 82962; 85025; 87040; 87077; 87086; 87088; 87186; 96365; 99291; 99292; J0696; J1644; J1815; J2543; J7030